=== PATIENT | female | born 1930 | race Caucasian/White ===

== ENCOUNTER 2016-07-06 16:38 | Inpatient (IN) | payer MEDICARE ==
[2016-07-06] MEDS ORDERED: Furosemide 40 MG Tab PO ONE (16:52)
--- NOTE | 2016-07-06 17:01 | PCM.HP ---
H&P History of Present Illness - General Date of Service: 07/06/16 Admit Problem/Dx: Admission Diagnosis/Problem Admission Diagnosis/Problem CHF, Congestive heart failure Source of Information: Patient History Limitations: Reports: No limitations - History of Present Illness Initial Comments - Free Text/Narative: This is an 85yo F who presented to the clinic with sob that has been progressive for weeks if not longer. Patient has had increasing b/l leg edema that has worsened the past week to the point where she has difficulty walking. Patient also has been sleeping in a recliner for an unknown time period. Patient denies any chest pain but does have increasing sob on exertion that has gradually worsened the past year. Patient denies prior history of [place] or Pulmonary concerns, but did state she was told she had mitral valve prolapse as a child. Onset of Symptoms: Reports: gradual Duration of Symptoms: Reports: Week(s):, Chronic Location: Reports: chest, lower extremity, left, lower extremity, right Severity: severe Improves with: Reports: None Worsens with: Reports: Movement Associated Symptoms: Reports: shortness of breath H&P Review of Systems - Review of Systems: Review Of Systems: See Below General: Reports: weight gain HEENT: Reports: no symptoms Pulmonary: Reports: Shortness of Breath Cardiovascular: Reports: dyspnea on exertion, edema Gastrointestinal: Reports: No symptoms Genitourinary: Reports: no symptoms Musculoskeletal: Reports: no symptoms Skin: Reports: no symptoms Psychiatric: Reports: no symptoms Neurological: Reports: No Symptoms Hematologic/Lymphatic: Reports: no symptoms Immunologic: Reports: no symptoms Exam - Exam Exam: See Below - Exam General: alert, oriented, cooperative HEENT: PERRLA, Conjunctiva clear, EACs clear, EOMI Neck: supple, trachea midline Lungs: Decreased breath sounds, Crackles Cardiovascular: regular rate, regular rhythm Abdomen: normal bowel sounds, soft Back Exam: normal inspection, full range of motion, other (SI joint pain) Extremities: edema (4+) Skin: warm, dry, intact Neurological: cranial nerves intact, reflexes equal bilateral Neuro Extensive - Mental Status: alert, oriented x3 Neuro Extensive - Motor, Sensory, Reflexes: CN II-XII intact, normal gait, normal reflexes *Q Meaningful Use (ADM) - VTE *Q VTE Criteria *Q: - Stroke *Q Stroke Criteria *Q: - AMI *Q AMI Criteria *Q: - Problem List (1) CHF (congestive heart failure) SNOMED Code(s): 57772214 ICD Code: I50.9 - HEART FAILURE, UNSPECIFIED Status: Suspected Priority: High Current Visit: Yes Qualifiers: Congestive heart failure type: unspecified congestive heart failure type Congestive heart failure chronicity: acute on chronic Qualified Code(s): I50.9 - Heart failure, unspecified (2) SOB (shortness of breath) on exertion SNOMED Code(s): 21950144 ICD Code: R06.02 - SHORTNESS OF BREATH Status: Acute Priority: High Current Visit: Yes (3) Edema extremities SNOMED Code(s): 405619556 ICD Code: R60.0 - LOCALIZED EDEMA Status: Acute Priority: High Current Visit: Yes Problem List Initiated/Reviewed/Updated: Yes Orders Last 24hrs: Active Orders 24 hr Category Date Time Status Patient Status [ADT] Routine ADT 07/06/16 16:52 Ordered Oxygen Therapy [RC] PRN Care 07/06/16 16:52 Ordered Vital Signs [RC] Q4H Care 07/06/16 16:52 Ordered Heart Healthy Diet [DIET] Diet 07/06/16 Dinner Ordered Chest Abdomen Pelvis wo Cont [CT] Routine Exams 07/07/16 09:00 Ordered Echo Comp wo Cont [US] Urgent Exams 07/06/16 16:51 Ordered B-TYPE NATRIURETIC PEPTIDE,BNP [CHEM] Urgent Lab 07/06/16 16:49 Ordered CBC WITH AUTO DIFF [HEME] Urgent Lab 07/06/16 16:49 Ordered COMPREHENSIVE METABOLIC PN,CMP [CHEM] Urgent Lab 07/06/16 16:49 Ordered TSH ULTRASENSITIVE [CHEM] Urgent Lab 07/06/16 16:49 Ordered Furosemide [Lasix] Med 07/06/16 16:52 Once 40 mg PO ONETIME ONE Assessment/Plan Comment:: Patient to be admitted for likely CHF exacerbation but has been undiagnosed as she has not seen a physician in quite some time. Patient is not on any medications and we will review her medication needs when we obtain labs. ECHO to be ordered and done as soon as possible. We will start diuresis with lasix orally twice daily. Monitor daily weights.
[2016-07-06] MEDS ORDERED: predniSONE 10 MG Tab PO ONE (22:28)
--- NOTE | 2016-07-06 22:31 | PCM.SN ---
- Free Text/Narrative Note: Visited and examined patient. Discussed plan with patient with daughter and patient. Try to have ECHO scheduled tomorrow. Start on prednisone burst for joint pains just for a 5 day trial. Patient has a prior diagnosis of Fibromyalgia but no prior known treatments. Trial of tylenol 650mg x1 for joint pains.
[2016-07-06] MEDS: Acetaminophen 650 MG Tab.ER PO PRN (22:54)
[2016-07-07] MEDS: Acetaminophen 650 MG Tab.ER PO PRN ×4 (05:34→23:10)
[2016-07-07] MEDS: predniSONE 20 MG Tab PO SCH (08:27)
[2016-07-07] MEDS: Calcium Carbonate 500 MG Tab.Chew PO PRN ×2 (08:32→22:15)
[2016-07-07] MEDS ORDERED: Furosemide 40 MG Tab ONE (10:54)
[2016-07-07] MEDS: Furosemide 40 MG Tab PO SCH ×2 (10:55→15:41)
--- NOTE | 2016-07-07 16:51 | PCM.PN ---
- General Info Date of Service: 07/07/16 Subjective Update: Patient has improved sob. Patient states she feels weak but overall has improved. Denies any fever or chills, no chest pain. Patient feels more comfortable in recliner. Daughter stayed over night. Functional Status: Reports: tolerating diet - Review of Systems General: Reports: Weakness HEENT: Reports: no symptoms Pulmonary: Reports: shortness of breath Cardiovascular: Reports: Edema Gastrointestinal: Reports: No symptoms Genitourinary: Reports: no symptoms Musculoskeletal: Reports: joint pain Neurological: Reports: Weakness Psychiatric: Reports: no symptoms - Patient Data Vitals - most recent: Last Vital Signs Temp 36.9 C 07/07/16 14:37 Pulse 81 07/07/16 11:01 Resp 16 07/07/16 14:37 BP 138/60 07/07/16 14:37 Pulse Ox 86 L 07/07/16 14:37 Weight - most recent: 100.698 kg Lab Results last 24 hrs: Laboratory Results - last 24 hr 07/06/16 07/06/16 07/07/16 Range/Units 16:49 16:49 08:45 WBC 11.2 H (4.0-11.0) K/uL RBC 4.92 (3.80-5.80) M/uL Hgb 14.3 (11.5-16.5) g/dL Hct 43.0 (37.0-47.0) % MCV 87 (76-96) fL MCH 29.1 (27.0-32.0) pg MCHC 33.3 (31.0-35.0) g/dL RDW 15.0 (11.0-16.0) % Plt Count 261 (150-500) K/uL MPV 9.7 (6.0-10.0) fL Neut % (Auto) 73.5 H (45.0-70.0) % Lymph % (Auto) 14.0 L (20.0-40.0) % Kerr % (Auto) 10.2 H (3.0-10.0) % Eos % (Auto) 1.8 (1.0-5.0) % Baso % (Auto) 0.5 (0.0-0.5) % Neut # (Auto) 8.19 H (2.00-7.50) K/uL Lymph # (Auto) 1.56 (1.50-4.00) K/uL Kerr # (Auto) 1.14 H (0.20-0.80) K/uL Eos # (Auto) 0.20 (0.04-0.40) K/uL Baso # (Auto) 0.06 (0.02-0.10) K/uL ESR 13 (0-30) mm/hr Sodium 144 (136-145) mmol/L Potassium 4.2 (3.5-5.1) mmol/L Chloride 105 (98-107) mmol/L Carbon Dioxide 29.9 (21.0-32.0) mmol/L Anion Gap 13.3 (5.0-15.0) mmol/L BUN 13 (8-26) mg/dL Creatinine 0.77 (0.55-1.02) mg/dL Est Cr Clr Drug Dosing TNP Estimated GFR (MDRD) > 60 (>60) MLS/MIN BUN/Creatinine Ratio 16.9 (6-25) Glucose 106 H (74-100) mg/dL Uric Acid (2.6-7.2) mg/dL Calcium 9.4 (8.5-10.1) mg/dL Magnesium (1.8-2.4) mg/dL Total Bilirubin 0.6 (0.0-1.0) mg/dL AST 18 (15-37) U/L ALT 20 (12-78) U/L Alkaline Phosphatase 85 (46-116) U/L Creatine Kinase (21-232) U/L C-Reactive Protein (0.0-3.0) mg/L B-Natriuretic Peptide 391 (0-450) pg/mL Total Protein 7.4 (6.4-8.2) g/dL Albumin 3.4 (3.4-5.0) g/dL Globulin 4.0 (2.2-4.2) g/dL Albumin/Globulin Ratio 0.9 (0.8-2.0) TSH, Ultra Sensitive 1.703 (0.358-3.740) uIU/mL 07/07/16 07/07/16 Range/Units 08:45 08:45 WBC (4.0-11.0) K/uL RBC (3.80-5.80) M/uL Hgb (11.5-16.5) g/dL Hct (37.0-47.0) % MCV (76-96) fL MCH (27.0-32.0) pg MCHC (31.0-35.0) g/dL RDW (11.0-16.0) % Plt Count (150-500) K/uL MPV (6.0-10.0) fL Neut % (Auto) (45.0-70.0) % Lymph % (Auto) (20.0-40.0) % Kerr % (Auto) (3.0-10.0) % Eos % (Auto) (1.0-5.0) % Baso % (Auto) (0.0-0.5) % Neut # (Auto) (2.00-7.50) K/uL Lymph # (Auto) (1.50-4.00) K/uL Kerr # (Auto) (0.20-0.80) K/uL Eos # (Auto) (0.04-0.40) K/uL Baso # (Auto) (0.02-0.10) K/uL ESR (0-30) mm/hr Sodium (136-145) mmol/L Potassium (3.5-5.1) mmol/L Chloride (98-107) mmol/L Carbon Dioxide (21.0-32.0) mmol/L Anion Gap (5.0-15.0) mmol/L BUN (8-26) mg/dL Creatinine (0.55-1.02) mg/dL Est Cr Clr Drug Dosing Estimated GFR (MDRD) (>60) MLS/MIN BUN/Creatinine Ratio (6-25) Glucose (74-100) mg/dL Uric Acid 5.5 (2.6-7.2) mg/dL Calcium (8.5-10.1) mg/dL Magnesium 1.7 L (1.8-2.4) mg/dL Total Bilirubin (0.0-1.0) mg/dL AST (15-37) U/L ALT (12-78) U/L Alkaline Phosphatase (46-116) U/L Creatine Kinase 115 (21-232) U/L C-Reactive Protein 10.4 H (0.0-3.0) mg/L B-Natriuretic Peptide (0-450) pg/mL Total Protein (6.4-8.2) g/dL Albumin (3.4-5.0) g/dL Globulin (2.2-4.2) g/dL Albumin/Globulin Ratio (0.8-2.0) TSH, Ultra Sensitive (0.358-3.740) uIU/mL Med Orders - Current: Current Medications Acetaminophen (Tylenol Arthritis Pain) 650 mg PO Q4HR PRN PRN Reason: Pain Last Admin: 07/07/16 15:41 Dose: 650 mg Calcium Carbonate/Glycine (Tums) 500 mg PO Q2HR PRN PRN Reason: Indigestion Last Admin: 07/07/16 08:32 Dose: 500 mg Furosemide (Lasix) 40 mg PO BIDDIURETIC [facility] Last Admin: 07/07/16 15:41 Dose: 40 mg Azithromycin 500 mg/ Sodium (Chloride) 250 mls @ 250 mls/hr IV Q24H [facility] Ceftriaxone Sodium 1 gm/ (Sodium Chloride) 50 mls @ 100 mls/hr IV Q24H [facility] Prednisone (Prednisone) 60 mg PO WITHBREAKFAST [facility] Stop: 07/11/16 07:01 Last Admin: 07/07/16 08:27 Dose: 60 mg Discontinued Medications Furosemide (Lasix) 40 mg PO ONETIME ONE Stop: 07/06/16 16:53 Last Admin: 07/06/16 17:48 Dose: 40 mg Furosemide (Lasix) Confirm Administered Dose 40 mg .ROUTE .STK-MED ONE Stop: 07/07/16 10:55 Last Admin: 07/07/16 10:56 Dose: Not Given Prednisone (Prednisone) 60 mg PO ONETIME ONE Stop: 07/06/16 22:29 Last Admin: 07/06/16 22:54 Dose: 60 mg - Exam General: alert, oriented, cooperative HEENT: Pupils equal, Pupils reactive, EOMI Neck: supple Lungs: Decreased breath sounds, Crackles Cardiovascular: Regular Rate, Regular Rhythm Abdomen: bowel sounds present, soft, no tenderness Back Exam: normal inspection Extremities: edema (3-4+) Skin: warm, dry, intact Neurological: no new focal deficit Psy/Mental Status: alert, normal affect, normal mood - Problem List & Annotations (1) CHF (congestive heart failure) SNOMED Code(s): 20276217 Code(s): I50.9 - HEART FAILURE, UNSPECIFIED Status: Suspected Priority: High Current Visit: Yes Qualifiers: Congestive heart failure type: unspecified congestive heart failure type Congestive heart failure chronicity: acute on chronic Qualified Code(s): I50.9 - Heart failure, unspecified (2) SOB (shortness of breath) on exertion SNOMED Code(s): 61712785 Code(s): R06.02 - SHORTNESS OF BREATH Status: Acute Priority: High Current Visit: Yes (3) Edema extremities SNOMED Code(s): 089613810 Code(s): R60.0 - LOCALIZED EDEMA Status: Acute Priority: High Current Visit: Yes (4) Pneumonia involving right lung SNOMED Code(s): 642259168 Code(s): J18.9 - PNEUMONIA, UNSPECIFIED ORGANISM Status: Acute Current Visit: Yes Qualifiers: Pneumonia type: due to unspecified organism Lung location: lower lobe of lung Qualified Code(s): J18.1 - Lobar pneumonia, unspecified organism - Problem List Review Problem List Initiated/Reviewed/Updated: Yes - My Orders Last 24 Hours: My Active Orders 07/06/16 16:51 Echo Comp wo Cont [US] Urgent 07/06/16 16:52 Patient Status [ADT] Routine Oxygen Therapy [RC] PRN Vital Signs [RC] Q4H 07/06/16 17:05 Weight [Height and Weight] [RC] ASDIRECTED 07/06/16 17:06 Telemetry Monitoring [Cardiac Monitoring] [RC] .As Directed 07/06/16 19:18 Calcium Carbonate [Tums] 500 mg PO Q2HR PRN 07/06/16 22:27 Acetaminophen [Tylenol Arthritis Pain] 650 mg PO Q4HR PRN 07/06/16 Dinner Heart Healthy Diet [DIET] 07/07/16 07:00 predniSONE 60 mg PO WITHBREAKFAST 07/07/16 08:45 DAMIR SCREEN,REFLEXIVE [REF] Routine FOLATE [REF] Routine VITAMIN B12 [REF] Routine VITAMIN D,25 HYDROXY [REF] Routine ZINC [REF] Routine 07/07/16 09:00 Chest Abdomen Pelvis wo Cont [CT] Routine 07/07/16 10:30 CULTURE MRSA SURVEY [RM] Routine 07/07/16 16:00 Furosemide [Lasix] 40 mg PO BIDDIURETIC 07/07/16 16:50 CULTURE BLOOD [BC] Routine CULTURE BLOOD [BC] Routine 07/07/16 17:00 Azithromycin [Zithromax] 500 mg Sodium Chloride 0.9% [Normal Saline] 250 ml IV Q24H cefTRIAXone [Rocephin] 1 gm Sodium Chloride 0.9% [Normal Saline] 50 ml IV Q24H 07/08/16 07:00 ZINC [REF] Routine - Plan Plan:: Patient to be admitted for likely CHF exacerbation but has been undiagnosed as she has not seen a physician in quite some time. Patient is not on any medications and we will review her medication needs when we obtain labs. ECHO to be ordered and done as soon as possible. We will start diuresis with lasix orally twice daily. Monitor daily weights. 07/07/16 Patient continues to have a CHF suspected symptoms but has a normal BNP. The swelling has been a chronic concern and gradual. There is consolidation like appearance of the right lower lobe and will be treated as pneumonia at this time. PT/OT ordered for evaluation and management. Consideration of swing bed for rehabilitation.
[2016-07-07] MEDS ORDERED: cefTRIAXone 1 GM in Sodium Chloride 0.9% 50 ML IV SCH (17:00)
[2016-07-07] MEDS ORDERED: Azithromycin 500 MG in Sodium Chloride 0.9% 250 ML IV SCH (18:00)
[2016-07-08] MEDS: Calcium Carbonate 500 MG Tab.Chew PO PRN (02:03)
[2016-07-08] MEDS ORDERED: Sodium Chloride 0.9% 10 ML Syringe FLUSH PRN (04:52)
[2016-07-08] MEDS: predniSONE 20 MG Tab PO SCH (08:19)
[2016-07-08] MEDS: Furosemide 40 MG Tab PO SCH ×2 (08:20→15:18)
--- NOTE | 2016-07-08 09:39 | CT ---
DATE OF SERVICE: 07/07/16 CLINICAL DATA: SOB, edema. UNENHANCED CHEST CT: Multislice acquisition through the chest without IV contrast was performed. No priors. Motion artifact does degrade image quality. There are atelectatic changes in the dependent portion of both lungs. There is a small area of infiltrating consolidation in the right lung base. Pneumonia should be considered. There is a 6 mm soft tissue density nodule within the left lower lobe. It is nonspecific in appearance. The differential includes benign and malignant processes. The lungs are otherwise clear. No pleural effusions. No pneumothorax. No aortic aneurysm. The heart size is within normal limits. No pericardial effusion. There are calcifications in the region of the mitral and aortic valves. There are coronary artery calcifications. No aortic aneurysm. No hilar or mediastinal adenopathy. No other significant findings. IMPRESSION: 1. Small area of consolidation in the right lower lobe. Pneumonia should be considered. 2. A 6 mm noncalcified nodule left lower lobe. This is nonspecific in appearance. The differential includes benign or malignant processes. 3. Other findings as discussed above. UNENHANCED ABDOMEN AND PELVIC CT: Multislice acquisition through the abdomen and pelvis without IV or oral contrast was performed. No priors. There is a small area of infiltrate and consolidation in the right lung base most likely representing pneumonia. There is a 6 mm nodule in the left lower lobe that was discussed on the chest CT. The unenhanced liver appears normal. No focal hepatic lesions. The gallbladder is contracted. There are a couple of small hyperdense foci within the gallbladder. Gallstones should be considered and gallbladder ultrasound is recommended. The spleen appears normal. The pancreas appears normal. The right and left adrenals appear normal. There is a 4.9 cm sharply transcribed fluid density lesion projecting from the lower pole of the kidney consistent in appearance with a benign renal cyst. The kidneys otherwise appear normal. No nephrocalcinosis or nephrolithiasis. No hydronephrosis or hydroureter. There is a small amount of fluid within the bladder. It appears grossly normal. The appendix is not visualized. No evidence of appendicitis. There is severe colonic diverticulosis. No definite evidence for diverticulitis. There is a small umbilical hernia containing fat. No free air. No free fluid. No dilated loops of bowel. No adenopathy. The aorta is ectatic. It measures 2.8 cm in its maximum diameter. No other significant findings. IMPRESSION: No acute abnormalities. Other findings as discussed above. [id number] [facility]
[2016-07-08] MEDS: cefTRIAXone 1 GM in Sodium Chloride 0.9% 100 ML IV SCH (15:40)
[2016-07-08] MEDS: Azithromycin 500 MG in Sodium Chloride 0.9% 250 ML IV SCH ×2 (16:25→17:40)
--- NOTE | 2016-07-08 18:01 | PCM.PN ---
- General Info Date of Service: 07/08/16 Subjective Update: Patient states she has been feeling better but continues with sob on movement and getting up. Patient denies any fever or chills. Denies any other symptoms. Functional Status: Reports: pain controlled, tolerating diet, ambulating - Review of Systems General: Reports: Weakness HEENT: Reports: no symptoms Pulmonary: Reports: shortness of breath Cardiovascular: Reports: Dyspnea on Exertion Gastrointestinal: Reports: No symptoms Genitourinary: Reports: frequency Musculoskeletal: Reports: joint pain Skin: Reports: no symptoms Neurological: Reports: Weakness Psychiatric: Reports: no symptoms - Patient Data Vitals - most recent: Last Vital Signs Temp 37.2 C 07/08/16 11:00 Pulse 97 07/08/16 11:00 Resp 15 07/08/16 11:00 BP 138/68 07/08/16 11:00 Pulse Ox 95 07/08/16 11:00 Weight - most recent: 100.698 kg I&O - last 24 hours: Intake & Output 07/08/16 07/08/16 07/08/16 06:59 14:59 22:59 Intake Total 1020 Output Total 100 Balance 920 Mikey Results last 24 hrs: Microbiology 07/07/16 17:30 Aerobic Blood Culture - Preliminary Blood NO GROWTH AFTER 1 DAY Anaerobic Blood Culture - Preliminary NO GROWTH AFTER 1 DAY 07/07/16 17:00 Aerobic Blood Culture - Preliminary Blood - Arm, Right NO GROWTH AFTER 1 DAY Anaerobic Blood Culture - Preliminary NO GROWTH AFTER 1 DAY 07/07/16 10:30 MRSA Surveillance Culture - Final Nasal, Unspecified NO MRSA ISOLATED Med Orders - Current: Current Medications Acetaminophen (Tylenol Arthritis Pain) 650 mg PO Q4HR PRN PRN Reason: Pain Last Admin: 07/07/16 23:10 Dose: 650 mg Calcium Carbonate/Glycine (Tums) 500 mg PO Q2HR PRN PRN Reason: Indigestion Last Admin: 07/08/16 02:03 Dose: 500 mg Furosemide (Lasix) 40 mg PO BIDDIURETIC [facility]ANARA Last Admin: 07/08/16 15:18 Dose: 40 mg Ceftriaxone Sodium 1 gm/ (Sodium Chloride) 100 mls @ 200 mls/hr IV Q24H [facility] Last Admin: 07/08/16 15:40 Dose: 200 mls/hr Azithromycin 500 mg/ Sodium (Chloride) 250 mls @ 250 mls/hr IV Q24H [facility] Last Admin: 07/08/16 17:40 Dose: 250 mls/hr Prednisone (Prednisone) 60 mg PO WITHBREAKFAST [facility] Stop: 07/11/16 07:01 Last Admin: 07/08/16 08:19 Dose: 60 mg Sodium Chloride (Saline Flush) 10 ml FLUSH BID PRN PRN Reason: to keep vein open Last Admin: 07/08/16 06:17 Dose: 10 ml Discontinued Medications Furosemide (Lasix) 40 mg PO ONETIME ONE Stop: 07/06/16 16:53 Last Admin: 07/06/16 17:48 Dose: 40 mg Furosemide (Lasix) Confirm Administered Dose 40 mg .ROUTE .STK-MED ONE Stop: 07/07/16 10:55 Last Admin: 07/07/16 10:56 Dose: Not Given Azithromycin 500 mg/ Sodium (Chloride) 250 mls @ 250 mls/hr IV Q24H [facility] Last Admin: 07/07/16 20:24 Dose: 250 mls/hr Ceftriaxone Sodium 1 gm/ (Sodium Chloride) 50 mls @ 100 mls/hr IV Q24H [facility] Last Admin: 07/07/16 17:57 Dose: 100 mls/hr Prednisone (Prednisone) 60 mg PO ONETIME ONE Stop: 07/06/16 22:29 Last Admin: 07/06/16 22:54 Dose: 60 mg - Exam Quality Assessment: supplemental oxygen General: alert, oriented, cooperative HEENT: Pupils equal, Pupils reactive Neck: supple Lungs: Normal respiratory effort, Crackles Cardiovascular: Regular Rate, Regular Rhythm Abdomen: bowel sounds present, soft, no tenderness Back Exam: normal inspection Extremities: edema (3-4+) Peripheral Pulses: 1+: dorsalis pedis (L), dorsalis pedis (R) Skin: warm, dry, intact Neurological: no new focal deficit Psy/Mental Status: alert, normal affect, normal mood - Problem List & Annotations (1) CHF (congestive heart failure) SNOMED Code(s): 85398577 Code(s): I50.9 - HEART FAILURE, UNSPECIFIED Status: Suspected Priority: High Current Visit: Yes Qualifiers: Congestive heart failure type: unspecified congestive heart failure type Congestive heart failure chronicity: acute on chronic Qualified Code(s): I50.9 - Heart failure, unspecified (2) SOB (shortness of breath) on exertion SNOMED Code(s): 99886731 Code(s): R06.02 - SHORTNESS OF BREATH Status: Acute Priority: High Current Visit: Yes (3) Edema extremities SNOMED Code(s): 960422078 Code(s): R60.0 - LOCALIZED EDEMA Status: Acute Priority: High Current Visit: Yes (4) Pneumonia involving right lung SNOMED Code(s): 890653036 Code(s): J18.9 - PNEUMONIA, UNSPECIFIED ORGANISM Status: Acute Priority: High Current Visit: Yes Qualifiers: Pneumonia type: due to unspecified organism Lung location: lower lobe of lung Qualified Code(s): J18.1 - Lobar pneumonia, unspecified organism - Problem List Review Problem List Initiated/Reviewed/Updated: Yes - My Orders Last 24 Hours: My Active Orders 07/07/16 17:30 CULTURE BLOOD [BC] Routine 07/08/16 04:52 Sodium Chloride 0.9% [Saline Flush] 10 ml FLUSH BID PRN 07/08/16 07:05 ZINC [REF] Routine 07/08/16 10:25 cefTRIAXone [Rocephin] 1 gm Sodium Chloride 0.9% [Normal Saline] 100 ml IV Q24H 07/08/16 11:00 Azithromycin [Zithromax] 500 mg Sodium Chloride 0.9% [Normal Saline] 250 ml IV Q24H - Plan Plan:: Patient to be admitted for likely CHF exacerbation but has been undiagnosed as she has not seen a physician in quite some time. Patient is not on any medications and we will review her medication needs when we obtain labs. ECHO to be ordered and done as soon as possible. We will start diuresis with lasix orally twice daily. Monitor daily weights. 07/07/16 Patient continues to have a CHF suspected symptoms but has a normal BNP. The swelling has been a chronic concern and gradual. There is consolidation like appearance of the right lower lobe and will be treated as pneumonia at this time. PT/OT ordered for evaluation and management. Consideration of swing bed for rehabilitation. 07/08/16 Patient to continue with diuresis pending Echocardiogram for next week. Symptoms appear to be improving. We will continue to monitor fluid status.
[2016-07-09] MEDS: predniSONE 20 MG Tab PO SCH (08:13)
[2016-07-09] MEDS: Furosemide 40 MG Tab PO SCH (08:13)
--- NOTE | 2016-07-09 09:01 | PCM.PN ---
- General Info Date of Service: 07/09/16 Subjective Update: Patient has felt improvement the past few days. Functional Status: Reports: pain controlled - Review of Systems General: Reports: Weakness, Fatigue HEENT: Reports: no symptoms Pulmonary: Reports: shortness of breath Cardiovascular: Reports: No Symptoms Gastrointestinal: Reports: No symptoms Genitourinary: Reports: frequency Musculoskeletal: Reports: joint pain Skin: Reports: no symptoms Neurological: Reports: Weakness Psychiatric: Reports: anxiety - Patient Data Vitals - most recent: Last Vital Signs Temp 37.2 C 07/08/16 11:00 Pulse 93 07/08/16 19:00 Resp 18 07/09/16 06:47 BP 148/67 H 07/08/16 19:00 Pulse Ox 95 07/08/16 19:00 Weight - most recent: 100.698 kg I&O - last 24 hours: Intake & Output 07/08/16 07/09/16 07/09/16 22:59 06:59 14:59 Intake Total 300 Output Total 600 Balance -300 Lab Results last 24 hrs: Laboratory Results - last 24 hr 07/07/16 07/07/16 Range/Units 08:45 08:45 Vitamin B12 604 (211-946) pg/mL Vitamin D 25-Hydroxy 43 (>29) ng/mL Folate 11.9 (4.8-24.2) ng/mL DAMIR Screen Negative (NEG) Mikey Results last 24 hrs: Microbiology 07/07/16 17:30 Aerobic Blood Culture - Preliminary Blood NO GROWTH AFTER 1 DAY Anaerobic Blood Culture - Preliminary NO GROWTH AFTER 1 DAY 07/07/16 17:00 Aerobic Blood Culture - Preliminary Blood - Arm, Right NO GROWTH AFTER 1 DAY Anaerobic Blood Culture - Preliminary NO GROWTH AFTER 1 DAY 07/07/16 10:30 MRSA Surveillance Culture - Final Nasal, Unspecified NO MRSA ISOLATED Med Orders - Current: Current Medications Acetaminophen (Tylenol Arthritis Pain) 650 mg PO Q4HR PRN PRN Reason: Pain Last Admin: 07/07/16 23:10 Dose: 650 mg Calcium Carbonate/Glycine (Tums) 500 mg PO Q2HR PRN PRN Reason: Indigestion Last Admin: 07/08/16 02:03 Dose: 500 mg Furosemide (Lasix) 40 mg PO BIDDIURETIC [facility] Last Admin: 07/09/16 08:13 Dose: 40 mg Ceftriaxone Sodium 1 gm/ (Sodium Chloride) 100 mls @ 200 mls/hr IV Q24H [facility] Last Admin: 07/08/16 15:40 Dose: 200 mls/hr Azithromycin 500 mg/ Sodium (Chloride) 250 mls @ 250 mls/hr IV Q24H [facility] Last Admin: 07/08/16 17:40 Dose: 250 mls/hr Prednisone (Prednisone) 60 mg PO WITHBREAKFAST [facility] Stop: 07/11/16 07:01 Last Admin: 07/09/16 08:13 Dose: 60 mg Sodium Chloride (Saline Flush) 10 ml FLUSH BID PRN PRN Reason: to keep vein open Last Admin: 07/08/16 06:17 Dose: 10 ml Discontinued Medications Furosemide (Lasix) 40 mg PO ONETIME ONE Stop: 07/06/16 16:53 Last Admin: 07/06/16 17:48 Dose: 40 mg Furosemide (Lasix) Confirm Administered Dose 40 mg .ROUTE .STK-MED ONE Stop: 07/07/16 10:55 Last Admin: 07/07/16 10:56 Dose: Not Given Azithromycin 500 mg/ Sodium (Chloride) 250 mls @ 250 mls/hr IV Q24H [facility] Last Admin: 07/07/16 20:24 Dose: 250 mls/hr Ceftriaxone Sodium 1 gm/ (Sodium Chloride) 50 mls @ 100 mls/hr IV Q24H [facility] Last Admin: 07/07/16 17:57 Dose: 100 mls/hr Prednisone (Prednisone) 60 mg PO ONETIME ONE Stop: 07/06/16 22:29 Last Admin: 07/06/16 22:54 Dose: 60 mg - Exam Quality Assessment: supplemental oxygen General: alert, oriented, cooperative HEENT: Pupils equal, Pupils reactive Neck: supple Lungs: Decreased breath sounds, Rhonchi Cardiovascular: Regular Rate, Regular Rhythm Abdomen: bowel sounds present, soft Back Exam: normal inspection Extremities: edema (2+) Peripheral Pulses: 1+: dorsalis pedis (L), dorsalis pedis (R) Skin: warm, dry, intact Neurological: no new focal deficit - Problem List & Annotations (1) CHF (congestive heart failure) SNOMED Code(s): 04302377 Code(s): I50.9 - HEART FAILURE, UNSPECIFIED Status: Chronic Priority: High Qualifiers: Congestive heart failure type: diastolic Congestive heart failure chronicity: acute on chronic Qualified Code(s): I50.33 - Acute on chronic diastolic (congestive) heart failure (2) SOB (shortness of breath) on exertion SNOMED Code(s): 04704153 Code(s): R06.02 - SHORTNESS OF BREATH Status: Chronic Priority: High (3) Edema extremities SNOMED Code(s): 513367186 Code(s): R60.0 - LOCALIZED EDEMA Status: Chronic Priority: High (4) Pneumonia involving right lung SNOMED Code(s): 135908448 Code(s): J18.9 - PNEUMONIA, UNSPECIFIED ORGANISM Status: Resolved Priority: High Qualifiers: Pneumonia type: due to unspecified organism Lung location: lower lobe of lung Qualified Code(s): J18.1 - Lobar pneumonia, unspecified organism - Problem List Review Problem List Initiated/Reviewed/Updated: Yes - My Orders Last 24 Hours: My Active Orders 07/08/16 10:25 cefTRIAXone [Rocephin] 1 gm Sodium Chloride 0.9% [Normal Saline] 100 ml IV Q24H 07/08/16 11:00 Azithromycin [Zithromax] 500 mg Sodium Chloride 0.9% [Normal Saline] 250 ml IV Q24H 07/09/16 05:39 CBC WITH AUTO DIFF [HEME] Routine COMPREHENSIVE METABOLIC PN,CMP [CHEM] Routine 07/09/16 05:40 GLYCOSYLATED HEMOGLOBIN,HGBA1C [CHEM] Routine - Plan Plan:: Patient to be admitted for likely CHF exacerbation but has been undiagnosed as she has not seen a physician in quite some time. Patient is not on any medications and we will review her medication needs when we obtain labs. ECHO to be ordered and done as soon as possible. We will start diuresis with lasix orally twice daily. Monitor daily weights. 07/07/16 Patient continues to have a CHF suspected symptoms but has a normal BNP. The swelling has been a chronic concern and gradual. There is consolidation like appearance of the right lower lobe and will be treated as pneumonia at this time. PT/OT ordered for evaluation and management. Consideration of swing bed for rehabilitation. 07/09/16 Patient continues to have an elevated WBC. She has also had low grade temps in the night. We will continue with antibiotics and repeat labs in AM. Continue supportive therapy. Discussed close monitoring of vitals and symptoms. Patient agrees with plan of care.
[2016-07-09] MEDS: Calcium Carbonate 500 MG Tab.Chew PO PRN (09:51)
[2016-07-09] MEDS: cefTRIAXone 1 GM in Sodium Chloride 0.9% 100 ML IV SCH (10:04)
[2016-07-09] MEDS: Azithromycin 500 MG in Sodium Chloride 0.9% 250 ML IV SCH (11:01)
--- NOTE | 2016-07-10 05:57 | PCM.PN ---
- General Info Date of Service: 07/10/16 Subjective Update: This is an 85yo F who has been improving gradually. Patient continues to have sob on exertion but has been stable. Patient denies any concerns today. Functional Status: Reports: tolerating diet - Review of Systems General: Reports: Weakness, Fatigue HEENT: Reports: no symptoms Pulmonary: Reports: shortness of breath Cardiovascular: Reports: No Symptoms Gastrointestinal: Reports: No symptoms Genitourinary: Reports: frequency Musculoskeletal: Reports: joint pain Skin: Reports: no symptoms Neurological: Reports: Weakness - Patient Data Vitals - most recent: Last Vital Signs Temp 36.9 C 07/10/16 05:26 Pulse 73 07/10/16 05:26 Resp 16 07/10/16 05:26 BP 150/68 H 07/10/16 05:26 Pulse Ox 91 L 07/10/16 05:26 Weight - most recent: 98.792 kg I&O - last 24 hours: Intake & Output 07/09/16 07/09/16 07/10/16 14:59 22:59 06:59 Intake Total 680 Output Total 740 Balance -60 Lab Results last 24 hrs: Laboratory Results - last 24 hr 07/09/16 07/09/16 07/09/16 Range/Units 09:00 09:00 09:00 WBC 13.3 H (4.0-11.0) K/uL RBC 5.02 (3.80-5.80) M/uL Hgb 14.7 (11.5-16.5) g/dL Hct 44.4 (37.0-47.0) % MCV 88 (76-96) fL MCH 29.3 (27.0-32.0) pg MCHC 33.1 (31.0-35.0) g/dL RDW 15.3 (11.0-16.0) % Plt Count 311 (150-500) K/uL MPV 10.0 (6.0-10.0) fL Neut % (Auto) 66.1 (45.0-70.0) % Lymph % (Auto) 22.7 (20.0-40.0) % [place] % (Auto) 9.3 (3.0-10.0) % Eos % (Auto) 1.4 (1.0-5.0) % Baso % (Auto) 0.5 (0.0-0.5) % Neut # (Auto) 8.79 H (2.00-7.50) K/uL Lymph # (Auto) 3.01 (1.50-4.00) K/uL [place] # (Auto) 1.23 H (0.20-0.80) K/uL Eos # (Auto) 0.19 (0.04-0.40) K/uL Baso # (Auto) 0.06 (0.02-0.10) K/uL Sodium 143 (136-145) mmol/L Potassium 3.6 (3.5-5.1) mmol/L Chloride 103 (98-107) mmol/L Carbon Dioxide 34.6 H (21.0-32.0) mmol/L Anion Gap 9.0 (5.0-15.0) mmol/L BUN 26 D (8-26) mg/dL Creatinine 0.86 (0.55-1.02) mg/dL Est Cr Clr Drug Dosing 37.83 mL/min Estimated GFR (MDRD) > 60 (>60) MLS/MIN BUN/Creatinine Ratio 30.2 H (6-25) Glucose 100 (74-100) mg/dL Hemoglobin A1c 5.8 (4.5-6.2) % Calcium 9.0 (8.5-10.1) mg/dL Total Bilirubin 0.5 (0.0-1.0) mg/dL AST 18 (15-37) U/L ALT 23 (12-78) U/L Alkaline Phosphatase 79 (46-116) U/L Total Protein 6.7 (6.4-8.2) g/dL Albumin 3.2 L (3.4-5.0) g/dL Globulin 3.5 (2.2-4.2) g/dL Albumin/Globulin Ratio 0.9 (0.8-2.0) Mikey Results last 24 hrs: Microbiology 07/07/16 17:30 Aerobic Blood Culture - Preliminary Blood NO GROWTH AFTER 2 DAYS Anaerobic Blood Culture - Preliminary NO GROWTH AFTER 2 DAYS 07/07/16 17:00 Aerobic Blood Culture - Preliminary Blood - Arm, Right NO GROWTH AFTER 2 DAYS Anaerobic Blood Culture - Preliminary NO GROWTH AFTER 2 DAYS Med Orders - Current: Current Medications Acetaminophen (Tylenol Arthritis Pain) 650 mg PO Q4HR PRN PRN Reason: Pain Last Admin: 07/07/16 23:10 Dose: 650 mg Calcium Carbonate/Glycine (Tums) 500 mg PO Q2HR PRN PRN Reason: Indigestion Last Admin: 07/09/16 09:51 Dose: 500 mg Furosemide (Lasix) 40 mg PO BIDDIURETIC [facility] Last Admin: 07/09/16 08:13 Dose: 40 mg Ceftriaxone Sodium 1 gm/ (Sodium Chloride) 100 mls @ 200 mls/hr IV Q24H [facility] Last Admin: 07/09/16 10:04 Dose: 200 mls/hr Azithromycin 500 mg/ Sodium (Chloride) 250 mls @ 250 mls/hr IV Q24H [facility] Last Admin: 07/09/16 11:01 Dose: 250 mls/hr Prednisone (Prednisone) 60 mg PO WITHBREAKFAST [facility] Stop: 07/11/16 07:01 Last Admin: 07/09/16 08:13 Dose: 60 mg Sodium Chloride (Saline Flush) 10 ml FLUSH BID PRN PRN Reason: to keep vein open Last Admin: 07/08/16 06:17 Dose: 10 ml Discontinued Medications Furosemide (Lasix) 40 mg PO ONETIME ONE Stop: 07/06/16 16:53 Last Admin: 07/06/16 17:48 Dose: 40 mg Furosemide (Lasix) Confirm Administered Dose 40 mg .ROUTE .STK-MED ONE Stop: 07/07/16 10:55 Last Admin: 07/07/16 10:56 Dose: Not Given Azithromycin 500 mg/ Sodium (Chloride) 250 mls @ 250 mls/hr IV Q24H [facility] Last Admin: 07/07/16 20:24 Dose: 250 mls/hr Ceftriaxone Sodium 1 gm/ (Sodium Chloride) 50 mls @ 100 mls/hr IV Q24H [facility] Last Admin: 07/07/16 17:57 Dose: 100 mls/hr Prednisone (Prednisone) 60 mg PO ONETIME ONE Stop: 07/06/16 22:29 Last Admin: 07/06/16 22:54 Dose: 60 mg - Exam Quality Assessment: supplemental oxygen General: alert, oriented, cooperative HEENT: Pupils equal, Pupils reactive Neck: supple Lungs: Decreased breath sounds, Rhonchi Cardiovascular: Regular Rate, Regular Rhythm Abdomen: bowel sounds present, no tenderness Back Exam: normal inspection Extremities: edema (2+) Peripheral Pulses: 1+: dorsalis pedis (L), dorsalis pedis (R) Skin: warm, dry, intact Neurological: no new focal deficit - Problem List & Annotations (1) CHF (congestive heart failure) SNOMED Code(s): 59643172 Code(s): I50.9 - HEART FAILURE, UNSPECIFIED Status: Chronic Priority: High Qualifiers: Congestive heart failure type: diastolic Congestive heart failure chronicity: acute on chronic Qualified Code(s): I50.33 - Acute on chronic diastolic (congestive) heart failure (2) SOB (shortness of breath) on exertion SNOMED Code(s): 29258189 Code(s): R06.02 - SHORTNESS OF BREATH Status: Chronic Priority: High (3) Edema extremities SNOMED Code(s): 038082619 Code(s): R60.0 - LOCALIZED EDEMA Status: Chronic Priority: High (4) Pneumonia involving right lung SNOMED Code(s): 228687859 Code(s): J18.9 - PNEUMONIA, UNSPECIFIED ORGANISM Status: Resolved Priority: High Qualifiers: Pneumonia type: due to unspecified organism Lung location: lower lobe of lung Qualified Code(s): J18.1 - Lobar pneumonia, unspecified organism - Problem List Review Problem List Initiated/Reviewed/Updated: Yes - Plan Plan:: Patient to be admitted for likely CHF exacerbation but has been undiagnosed as she has not seen a physician in quite some time. Patient is not on any medications and we will review her medication needs when we obtain labs. ECHO to be ordered and done as soon as possible. We will start diuresis with lasix orally twice daily. Monitor daily weights. 07/07/16 Patient continues to have a CHF suspected symptoms but has a normal BNP. The swelling has been a chronic concern and gradual. There is consolidation like appearance of the right lower lobe and will be treated as pneumonia at this time. PT/OT ordered for evaluation and management. Consideration of swing bed for rehabilitation. 07/10/16 Patient continues to have desaturation of oxygen on activity and dyspneic on exertion. Oxygen use continued and close monitoring of oxygenation with activity counseled in presence of nursing staff. We will be continuing antibiotics at this time and repeat labs in AM.
[2016-07-10] MEDS: Furosemide 40 MG Tab PO SCH ×3 (07:21→14:26)
[2016-07-10] MEDS ORDERED: Azithromycin 500 MG Tab PO ONE (07:36)
[2016-07-10] MEDS: predniSONE 20 MG Tab PO SCH (08:18)
[2016-07-10] MEDS ORDERED: Levofloxacin 750 MG Tab PO SCH (10:00)
[2016-07-10] MEDS: Lactobacillus Acidophilus/Lactobacillus Sporogenes (Probiotic) Tab PO ONE (11:58)
[2016-07-10] MEDS: Nystatin Crm 30 GM Tube TOP SCH ×2 (14:18→20:00)
[2016-07-11] MEDS: Nystatin Crm 30 GM Tube TOP SCH ×3 (08:00→19:57)
[2016-07-11] MEDS: predniSONE 20 MG Tab PO SCH (08:00)
[2016-07-11] MEDS: Furosemide 40 MG Tab PO SCH ×2 (08:00→15:03)
--- NOTE | 2016-07-11 09:32 | PCM.PN ---
- General Info Date of Service: 07/11/16 Subjective Update: Patient states she experience some chills through the night. Denies fever. Patient does feel somewhat weak. Patient has a ongoing complaint of sob on exertion. - Review of Systems General: Reports: Weakness HEENT: Reports: no symptoms Pulmonary: Reports: shortness of breath Cardiovascular: Reports: Dyspnea on Exertion Gastrointestinal: Reports: No symptoms Genitourinary: Reports: no symptoms Musculoskeletal: Reports: no symptoms Skin: Reports: no symptoms Neurological: Reports: Weakness Psychiatric: Reports: no symptoms - Patient Data Vitals - most recent: Last Vital Signs Temp 36.4 C 07/11/16 08:00 Pulse 81 07/11/16 08:00 Resp 18 07/11/16 08:00 BP 120/43 L 07/11/16 08:00 Pulse Ox 94 L 07/11/16 08:00 Weight - most recent: 98.792 kg I&O - last 24 hours: Intake & Output 07/10/16 07/11/16 07/11/16 22:59 06:59 14:59 Intake Total 200 500 Output Total 1000 400 Balance -800 100 Mikey Results last 24 hrs: Microbiology 07/07/16 17:30 Aerobic Blood Culture - Preliminary Blood NO GROWTH AFTER 3 DAYS Anaerobic Blood Culture - Preliminary NO GROWTH AFTER 3 DAYS 07/07/16 17:00 Aerobic Blood Culture - Preliminary Blood - Arm, Right NO GROWTH AFTER 3 DAYS Anaerobic Blood Culture - Preliminary NO GROWTH AFTER 3 DAYS Med Orders - Current: Current Medications Acetaminophen (Tylenol Arthritis Pain) 650 mg PO Q4HR PRN PRN Reason: Pain Last Admin: 07/07/16 23:10 Dose: 650 mg Calcium Carbonate/Glycine (Tums) 500 mg PO Q2HR PRN PRN Reason: Indigestion Last Admin: 07/09/16 09:51 Dose: 500 mg Furosemide (Lasix) 40 mg PO BID@0800,1400 [facility] Last Admin: 07/11/16 08:00 Dose: 40 mg Lactobacillus Acidophilus (Acidolphilus Extra Strength) 1 tab PO DAILY ONE Stop: 07/11/16 11:16 Last Admin: 07/10/16 11:58 Dose: 1 tab Levofloxacin (Levaquin) 750 mg PO Q48H [facility] Nystatin (Nystatin Crm) 0 gm TOP TID [facility] Last Admin: 07/11/16 08:00 Dose: 1 applic Pregabalin (Lyrica) 50 mg PO TID [facility] Discontinued Medications Azithromycin (Zithromax) 500 mg PO ONETIME ONE Stop: 07/10/16 07:37 Last Admin: 07/10/16 08:21 Dose: 500 mg Furosemide (Lasix) 40 mg PO ONETIME ONE Stop: 07/06/16 16:53 Last Admin: 07/06/16 17:48 Dose: 40 mg Furosemide (Lasix) 40 mg PO BIDDIURETIC [facility] Last Admin: 07/10/16 14:26 Dose: 40 mg Furosemide (Lasix) Confirm Administered Dose 40 mg .ROUTE .STK-MED ONE Stop: 07/07/16 10:55 Last Admin: 07/07/16 10:56 Dose: Not Given Azithromycin 500 mg/ Sodium (Chloride) 250 mls @ 250 mls/hr IV Q24H [facility] Last Admin: 07/07/16 20:24 Dose: 250 mls/hr Ceftriaxone Sodium 1 gm/ (Sodium Chloride) 50 mls @ 100 mls/hr IV Q24H [facility] Last Admin: 07/07/16 17:57 Dose: 100 mls/hr Ceftriaxone Sodium 1 gm/ (Sodium Chloride) 100 mls @ 200 mls/hr IV Q24H [facility] Last Admin: 07/09/16 10:04 Dose: 200 mls/hr Azithromycin 500 mg/ Sodium (Chloride) 250 mls @ 250 mls/hr IV Q24H [facility] Last Admin: 07/09/16 11:01 Dose: 250 mls/hr Levofloxacin (Levaquin) 750 mg PO Q24H [facility] Last Admin: 07/10/16 10:16 Dose: 750 mg Prednisone (Prednisone) 60 mg PO WITHBREAKFAST [facility] Stop: 07/11/16 07:01 Last Admin: 07/11/16 08:00 Dose: 60 mg Prednisone (Prednisone) 60 mg PO ONETIME ONE Stop: 07/06/16 22:29 Last Admin: 07/06/16 22:54 Dose: 60 mg Sodium Chloride (Saline Flush) 10 ml FLUSH BID PRN PRN Reason: to keep vein open Last Admin: 07/08/16 06:17 Dose: 10 ml - Exam General: alert, oriented, cooperative HEENT: Pupils equal, Pupils reactive Neck: supple Lungs: Clear to auscultation, Normal respiratory effort Cardiovascular: Regular Rate, Regular Rhythm Abdomen: bowel sounds present, soft, no tenderness Back Exam: normal inspection Extremities: edema (2-3+) Skin: warm, dry, intact - Problem List & Annotations (1) CHF (congestive heart failure) SNOMED Code(s): 85496922 Code(s): I50.9 - HEART FAILURE, UNSPECIFIED Status: Suspected Priority: High Current Visit: Yes Qualifiers: Congestive heart failure type: unspecified congestive heart failure type Congestive heart failure chronicity: acute on chronic Qualified Code(s): I50.9 - Heart failure, unspecified (2) SOB (shortness of breath) on exertion SNOMED Code(s): 63185237 Code(s): R06.02 - SHORTNESS OF BREATH Status: Acute Priority: High Current Visit: Yes (3) Edema extremities SNOMED Code(s): 850419878 Code(s): R60.0 - LOCALIZED EDEMA Status: Acute Priority: High Current Visit: Yes (4) Pneumonia involving right lung SNOMED Code(s): 273990523 Code(s): J18.9 - PNEUMONIA, UNSPECIFIED ORGANISM Status: Acute Current Visit: Yes Qualifiers: Pneumonia type: due to unspecified organism Lung location: lower lobe of lung Qualified Code(s): J18.1 - Lobar pneumonia, unspecified organism - Problem List Review Problem List Initiated/Reviewed/Updated: Yes - My Orders Last 24 Hours: My Active Orders 07/10/16 14:00 Nystatin [Nystatin Crm] 0 gm TOP TID 07/11/16 08:00 Furosemide [Lasix] 40 mg PO BID@0800,1400 07/11/16 09:30 CBC WITH AUTO DIFF [HEME] Routine COMPREHENSIVE METABOLIC PN,CMP [CHEM] Routine 07/11/16 11:15 Acidophilus/Lactobac Spor [Acidolphilus Extra Strength] 1 tab PO DAILY ONE 07/11/16 14:00 Pregabalin [Lyrica] 50 mg PO TID 07/12/16 08:00 Levofloxacin [Levaquin] 750 mg PO Q48H - Plan Plan:: Patient to be admitted for likely CHF exacerbation but has been undiagnosed as she has not seen a physician in quite some time. Patient is not on any medications and we will review her medication needs when we obtain labs. ECHO to be ordered and done as soon as possible. We will start diuresis with lasix orally twice daily. Monitor daily weights. 07/07/16 Patient continues to have a CHF suspected symptoms but has a normal BNP. The swelling has been a chronic concern and gradual. There is consolidation like appearance of the right lower lobe and will be treated as pneumonia at this time. PT/OT ordered for evaluation and management. Consideration of swing bed for rehabilitation. 07/11/16 Patient pending ECHO in wed. We have continued oral antibiotics due to loss of IV line and will repeat WBC for evaluation of recent symptoms. We may require IV antibiotics if WBC has not resolved. Consider PT/OT rehabilitation for weakness and planning for swing bed.
[2016-07-11] MEDS ORDERED: Sodium Chloride 0.9% 10 ML Syringe FLUSH PRN (10:56)
--- NOTE | 2016-07-11 11:00 | PCM.DCSUM1 ---
Discharge Summary - Discharge Data Discharge Date: 07/11/16 Discharge Disposition: DC/Tfer W/I H[facility] Condition: Good - Discharge Diagnosis/Problem(s) (1) CHF (congestive heart failure) SNOMED Code(s): 73572269 ICD Code: I50.9 - HEART FAILURE, UNSPECIFIED Status: Suspected Priority: High Current Visit: Yes Qualifiers: Congestive heart failure type: unspecified congestive heart failure type Congestive heart failure chronicity: acute on chronic Qualified Code(s): I50.9 - Heart failure, unspecified (2) SOB (shortness of breath) on exertion SNOMED Code(s): 34097115 ICD Code: R06.02 - SHORTNESS OF BREATH Status: Acute Priority: High Current Visit: Yes (3) Edema extremities SNOMED Code(s): 614722868 ICD Code: R60.0 - LOCALIZED EDEMA Status: Acute Priority: High Current Visit: Yes (4) Pneumonia involving right lung SNOMED Code(s): 664924546 ICD Code: J18.9 - PNEUMONIA, UNSPECIFIED ORGANISM Status: Acute Current Visit: Yes Qualifiers: Pneumonia type: due to unspecified organism Lung location: lower lobe of lung Qualified Code(s): J18.1 - Lobar pneumonia, unspecified organism - Patient Summary/Data Consults: Consultations 07/07/16 16:51 OT Evaluation and Treatment [CONS] Routine Please Evaluate and Treat. OT Reason for Consult: ADL's This query below is only for informational purposes and is not editable. Admission Diagnosis/Problem: CHF, Congestive heart failure PT Evaluation and Treatment [CONS] Routine Please Evaluate and Treat. PT Reason for Consult: Ambulation This query below is only for informational purposes and is not editable. Admission Diagnosis/Problem: CHF, Congestive heart failure - Discharge Plan - Patient Data Vitals - Most Recent: Last Vital Signs Temp 36.4 C 07/11/16 08:00 Pulse 81 07/11/16 08:00 Resp 18 07/11/16 08:00 BP 120/43 L 07/11/16 08:00 Pulse Ox 94 L 07/11/16 08:00 Weight - Most Recent: 98.792 kg I&O - Last 24 hours: Intake & Output 07/10/16 07/11/16 07/11/16 22:59 06:59 14:59 Intake Total 200 500 Output Total 1000 400 Balance -800 100 Lab Results - Last 24 hrs: Laboratory Results - last 24 hr 07/11/16 07/11/16 Range/Units 09:30 09:30 WBC 17.2 H D (4.0-11.0) K/uL RBC 4.86 (3.80-5.80) M/uL Hgb 14.3 (11.5-16.5) g/dL Hct 42.7 (37.0-47.0) % MCV 88 (76-96) fL MCH 29.4 (27.0-32.0) pg MCHC 33.5 (31.0-35.0) g/dL RDW 15.1 (11.0-16.0) % Plt Count 324 (150-500) K/uL MPV 9.4 (6.0-10.0) fL Neut % (Auto) 73.9 H (45.0-70.0) % Lymph % (Auto) 14.3 L (20.0-40.0) % [place] % (Auto) 10.6 H (3.0-10.0) % Eos % (Auto) 1.0 (1.0-5.0) % Baso % (Auto) 0.2 (0.0-0.5) % Neut # (Auto) 12.74 H (2.00-7.50) K/uL Lymph # (Auto) 2.46 (1.50-4.00) K/uL [place] # (Auto) 1.82 H (0.20-0.80) K/uL Eos # (Auto) 0.18 (0.04-0.40) K/uL Baso # (Auto) 0.04 (0.02-0.10) K/uL Sodium 141 (136-145) mmol/L Potassium 3.4 L (3.5-5.1) mmol/L Chloride 101 (98-107) mmol/L Carbon Dioxide 32.5 H (21.0-32.0) mmol/L Anion Gap 10.9 (5.0-15.0) mmol/L BUN 21 (8-26) mg/dL Creatinine 0.97 (0.55-1.02) mg/dL Est Cr Clr Drug Dosing 33.54 mL/min Estimated GFR (MDRD) 55 L (>60) MLS/MIN BUN/Creatinine Ratio 21.6 (6-25) Glucose 120 H (74-100) mg/dL Calcium 8.8 (8.5-10.1) mg/dL Total Bilirubin 0.6 (0.0-1.0) mg/dL AST 21 (15-37) U/L ALT 42 (12-78) U/L Alkaline Phosphatase 83 (46-116) U/L Total Protein 6.5 (6.4-8.2) g/dL Albumin 3.1 L (3.4-5.0) g/dL Globulin 3.4 (2.2-4.2) g/dL Albumin/Globulin Ratio 0.9 (0.8-2.0) MARKELL Results - Last 24 hrs: Microbiology 07/07/16 17:30 Aerobic Blood Culture - Preliminary Blood NO GROWTH AFTER 3 DAYS Anaerobic Blood Culture - Preliminary NO GROWTH AFTER 3 DAYS 07/07/16 17:00 Aerobic Blood Culture - Preliminary Blood - Arm, Right NO GROWTH AFTER 3 DAYS Anaerobic Blood Culture - Preliminary NO GROWTH AFTER 3 DAYS Med Orders - Current: Current Medications Acetaminophen (Tylenol Arthritis Pain) 650 mg PO Q4HR PRN PRN Reason: Pain Last Admin: 07/07/16 23:10 Dose: 650 mg Calcium Carbonate/Glycine (Tums) 500 mg PO Q2HR PRN PRN Reason: Indigestion Last Admin: 07/09/16 09:51 Dose: 500 mg Furosemide (Lasix) 40 mg PO BID@0800,1400 [facility] Last Admin: 07/11/16 08:00 Dose: 40 mg Lactobacillus Acidophilus (Acidolphilus Extra Strength) 1 tab PO DAILY ONE Stop: 07/11/16 11:16 Last Admin: 07/10/16 11:58 Dose: 1 tab Levofloxacin (Levaquin) 750 mg PO Q48H [facility] Nystatin (Nystatin Crm) 0 gm TOP TID [facility] Last Admin: 07/11/16 08:00 Dose: 1 applic Pregabalin (Lyrica) 50 mg PO TID [facility] Sodium Chloride (Saline Flush) 10 ml FLUSH ASDIRECTED PRN PRN Reason: Keep Vein Open Discontinued Medications Azithromycin (Zithromax) 500 mg PO ONETIME ONE Stop: 07/10/16 07:37 Last Admin: 07/10/16 08:21 Dose: 500 mg Furosemide (Lasix) 40 mg PO ONETIME ONE Stop: 07/06/16 16:53 Last Admin: 07/06/16 17:48 Dose: 40 mg Furosemide (Lasix) 40 mg PO BIDDIURETIC [facility] Last Admin: 07/10/16 14:26 Dose: 40 mg Furosemide (Lasix) Confirm Administered Dose 40 mg .ROUTE .STK-MED ONE Stop: 07/07/16 10:55 Last Admin: 07/07/16 10:56 Dose: Not Given Azithromycin 500 mg/ Sodium (Chloride) 250 mls @ 250 mls/hr IV Q24H [facility] Last Admin: 07/07/16 20:24 Dose: 250 mls/hr Ceftriaxone Sodium 1 gm/ (Sodium Chloride) 50 mls @ 100 mls/hr IV Q24H [facility] Last Admin: 07/07/16 17:57 Dose: 100 mls/hr Ceftriaxone Sodium 1 gm/ (Sodium Chloride) 100 mls @ 200 mls/hr IV Q24H [facility] Last Admin: 07/09/16 10:04 Dose: 200 mls/hr Azithromycin 500 mg/ Sodium (Chloride) 250 mls @ 250 mls/hr IV Q24H [facility] Last Admin: 07/09/16 11:01 Dose: 250 mls/hr Levofloxacin (Levaquin) 750 mg PO Q24H [facility] Last Admin: 07/10/16 10:16 Dose: 750 mg Prednisone (Prednisone) 60 mg PO WITHBREAKFAST [facility] Stop: 07/11/16 07:01 Last Admin: 07/11/16 08:00 Dose: 60 mg Prednisone (Prednisone) 60 mg PO ONETIME ONE Stop: 07/06/16 22:29 Last Admin: 07/06/16 22:54 Dose: 60 mg Sodium Chloride (Saline Flush) 10 ml FLUSH BID PRN PRN Reason: to keep vein open Last Admin: 07/08/16 06:17 Dose: 10 ml *Q Meaningful Use (DIS) - VTE *Q VTE Criteria *Q: - Stroke *Q Stroke Criteria *Q: - AMI *Q AMI Criteria *Q:
[2016-07-11] MEDS: Lactobacillus Acidophilus/Lactobacillus Sporogenes (Probiotic) Tab PO ONE (12:36)
[2016-07-11] MEDS: Piperacillin/Tazobactam 4.5 GM in Sodium Chloride 0.9% 100 ML IV SCH ×3 (12:36→23:30)
[2016-07-11] MEDS: Pregabalin 50 MG Cap PO SCH ×2 (15:02→19:56)
[2016-07-12] MEDS: Piperacillin/Tazobactam 4.5 GM in Sodium Chloride 0.9% 100 ML IV SCH ×3 (05:20→22:50)
[2016-07-12] MEDS: Furosemide 40 MG Tab PO SCH ×2 (07:57→14:22)
[2016-07-12] MEDS: Pregabalin 50 MG Cap PO SCH ×3 (07:59→19:40)
[2016-07-12] MEDS ORDERED: Levofloxacin 750 MG Tab PO SCH (08:00)
--- NOTE | 2016-07-12 09:48 | PCM.PN ---
- General Info Date of Service: 07/12/16 Subjective Update: Patient states she is feeling about the same. She has some concerns of a sore throat and feeling weak. Functional Status: Reports: pain controlled, tolerating diet, ambulating - Review of Systems General: Reports: Weakness HEENT: Reports: no symptoms Pulmonary: Reports: no symptoms Cardiovascular: Reports: No Symptoms Gastrointestinal: Reports: Decreased appetite Genitourinary: Reports: frequency Musculoskeletal: Reports: joint pain Skin: Reports: no symptoms Neurological: Reports: No Symptoms - Patient Data Vitals - most recent: Last Vital Signs Temp 36.8 C 07/12/16 05:15 Pulse 66 07/12/16 05:15 Resp 16 07/12/16 05:15 BP 147/54 H 07/12/16 05:15 Pulse Ox 96 07/12/16 05:15 Weight - most recent: 98.792 kg I&O - last 24 hours: Intake & Output 07/11/16 07/12/16 07/12/16 22:59 06:59 14:59 Intake Total 680 Output Total 1100 Balance -420 Lab Results last 24 hrs: Laboratory Results - last 24 hr 07/08/16 07/11/16 07/11/16 Range/Units 07:05 09:30 09:30 WBC 17.2 H D (4.0-11.0) K/uL RBC 4.86 (3.80-5.80) M/uL Hgb 14.3 (11.5-16.5) g/dL Hct 42.7 (37.0-47.0) % MCV 88 (76-96) fL MCH 29.4 (27.0-32.0) pg MCHC 33.5 (31.0-35.0) g/dL RDW 15.1 (11.0-16.0) % Plt Count 324 (150-500) K/uL MPV 9.4 (6.0-10.0) fL Neut % (Auto) 73.9 H (45.0-70.0) % Lymph % (Auto) 14.3 L (20.0-40.0) % [place] % (Auto) 10.6 H (3.0-10.0) % Eos % (Auto) 1.0 (1.0-5.0) % Baso % (Auto) 0.2 (0.0-0.5) % Neut # (Auto) 12.74 H (2.00-7.50) K/uL Lymph # (Auto) 2.46 (1.50-4.00) K/uL [place] # (Auto) 1.82 H (0.20-0.80) K/uL Eos # (Auto) 0.18 (0.04-0.40) K/uL Baso # (Auto) 0.04 (0.02-0.10) K/uL Sodium 141 (136-145) mmol/L Potassium 3.4 L (3.5-5.1) mmol/L Chloride 101 (98-107) mmol/L Carbon Dioxide 32.5 H (21.0-32.0) mmol/L Anion Gap 10.9 (5.0-15.0) mmol/L BUN 21 (8-26) mg/dL Creatinine 0.97 (0.55-1.02) mg/dL Est Cr Clr Drug Dosing 33.54 mL/min Estimated GFR (MDRD) 55 L (>60) MLS/MIN BUN/Creatinine Ratio 21.6 (6-25) Glucose 120 H (74-100) mg/dL Calcium 8.8 (8.5-10.1) mg/dL Total Bilirubin 0.6 (0.0-1.0) mg/dL AST 21 (15-37) U/L ALT 42 (12-78) U/L Alkaline Phosphatase 83 (46-116) U/L Total Protein 6.5 (6.4-8.2) g/dL Albumin 3.1 L (3.4-5.0) g/dL Globulin 3.4 (2.2-4.2) g/dL Albumin/Globulin Ratio 0.9 (0.8-2.0) Zinc 68 (60-120) ug/dL 07/12/16 07/12/16 Range/Units 07:10 07:10 WBC 14.3 H (4.0-11.0) K/uL RBC 4.87 (3.80-5.80) M/uL Hgb 14.2 (11.5-16.5) g/dL Hct 43.0 (37.0-47.0) % MCV 88 (76-96) fL MCH 29.2 (27.0-32.0) pg MCHC 33.0 (31.0-35.0) g/dL RDW 15.1 (11.0-16.0) % Plt Count 332 (150-500) K/uL MPV 9.5 (6.0-10.0) fL Neut % (Auto) 66.0 (45.0-70.0) % Lymph % (Auto) 20.4 (20.0-40.0) % [place] % (Auto) 12.0 H (3.0-10.0) % Eos % (Auto) 1.4 (1.0-5.0) % Baso % (Auto) 0.2 (0.0-0.5) % Neut # (Auto) 9.43 H (2.00-7.50) K/uL Lymph # (Auto) 2.92 (1.50-4.00) K/uL [place] # (Auto) 1.72 H (0.20-0.80) K/uL Eos # (Auto) 0.20 (0.04-0.40) K/uL Baso # (Auto) 0.03 (0.02-0.10) K/uL Sodium 143 (136-145) mmol/L Potassium 3.8 (3.5-5.1) mmol/L Chloride 102 (98-107) mmol/L Carbon Dioxide 34.8 H (21.0-32.0) mmol/L Anion Gap 10.0 (5.0-15.0) mmol/L BUN 22 (8-26) mg/dL Creatinine 1.19 H D (0.55-1.02) mg/dL Est Cr Clr Drug Dosing 27.34 mL/min Estimated GFR (MDRD) 43 L (>60) MLS/MIN BUN/Creatinine Ratio 18.5 (6-25) Glucose 87 (74-100) mg/dL Calcium 8.5 (8.5-10.1) mg/dL Total Bilirubin (0.0-1.0) mg/dL AST (15-37) U/L ALT (12-78) U/L Alkaline Phosphatase (46-116) U/L Total Protein (6.4-8.2) g/dL Albumin (3.4-5.0) g/dL Globulin (2.2-4.2) g/dL Albumin/Globulin Ratio (0.8-2.0) Zinc (60-120) ug/dL Mikey Results last 24 hrs: Microbiology 07/11/16 12:11 Urine Culture - Preliminary Urine, Bladder NO GROWTH AFTER 1 DAY 07/07/16 17:30 Aerobic Blood Culture - Preliminary Blood NO GROWTH AFTER 4 DAYS Anaerobic Blood Culture - Preliminary NO GROWTH AFTER 4 DAYS 07/07/16 17:00 Aerobic Blood Culture - Preliminary Blood - Arm, Right NO GROWTH AFTER 4 DAYS Anaerobic Blood Culture - Preliminary NO GROWTH AFTER 4 DAYS Med Orders - Current: Current Medications Acetaminophen (Tylenol Arthritis Pain) 650 mg PO Q4HR PRN PRN Reason: Pain Last Admin: 07/07/16 23:10 Dose: 650 mg Calcium Carbonate/Glycine (Tums) 500 mg PO Q2HR PRN PRN Reason: Indigestion Last Admin: 07/09/16 09:51 Dose: 500 mg Furosemide (Lasix) 40 mg PO BID@0800,1400 [facility] Last Admin: 07/12/16 07:57 Dose: 40 mg Piperacillin Sod/Tazobactam (Sod 4.5 gm/ Sodium Chloride) 100 mls @ 200 mls/hr IV Q8H [facility] Nystatin (Nystatin Crm) 0 gm TOP TID [facility] Last Admin: 07/11/16 19:57 Dose: 1 applic Pregabalin (Lyrica) 50 mg PO TID [facility] Last Admin: 07/12/16 07:59 Dose: 50 mg Sodium Chloride (Saline Flush) 10 ml FLUSH ASDIRECTED PRN PRN Reason: Keep Vein Open Discontinued Medications Azithromycin (Zithromax) 500 mg PO ONETIME ONE Stop: 07/10/16 07:37 Last Admin: 07/10/16 08:21 Dose: 500 mg Furosemide (Lasix) 40 mg PO ONETIME ONE Stop: 07/06/16 16:53 Last Admin: 07/06/16 17:48 Dose: 40 mg Furosemide (Lasix) 40 mg PO BIDDIURETIC [facility] Last Admin: 07/10/16 14:26 Dose: 40 mg Furosemide (Lasix) Confirm Administered Dose 40 mg .ROUTE .STK-MED ONE Stop: 07/07/16 10:55 Last Admin: 07/07/16 10:56 Dose: Not Given Azithromycin 500 mg/ Sodium (Chloride) 250 mls @ 250 mls/hr IV Q24H [facility] Last Admin: 07/07/16 20:24 Dose: 250 mls/hr Ceftriaxone Sodium 1 gm/ (Sodium Chloride) 50 mls @ 100 mls/hr IV Q24H [facility] Last Admin: 07/07/16 17:57 Dose: 100 mls/hr Ceftriaxone Sodium 1 gm/ (Sodium Chloride) 100 mls @ 200 mls/hr IV Q24H [facility] Last Admin: 07/09/16 10:04 Dose: 200 mls/hr Azithromycin 500 mg/ Sodium (Chloride) 250 mls @ 250 mls/hr IV Q24H [facility] Last Admin: 07/09/16 11:01 Dose: 250 mls/hr Piperacillin Sod/Tazobactam (Sod 4.5 gm/ Sodium Chloride) 100 mls @ 200 mls/hr IV Q6H [facility] Last Admin: 07/12/16 05:20 Dose: 200 mls/hr Lactobacillus Acidophilus (Acidolphilus Extra Strength) 1 tab PO DAILY ONE Stop: 07/11/16 11:16 Last Admin: 07/11/16 12:36 Dose: 1 tab Levofloxacin (Levaquin) 750 mg PO Q24H [facility] Last Admin: 07/10/16 10:16 Dose: 750 mg Levofloxacin (Levaquin) 750 mg PO Q48H [facility] Last Admin: 07/12/16 07:58 Dose: 750 mg Prednisone (Prednisone) 60 mg PO WITHBREAKFAST [facility] Stop: 07/11/16 07:01 Last Admin: 07/11/16 08:00 Dose: 60 mg Prednisone (Prednisone) 60 mg PO ONETIME ONE Stop: 07/06/16 22:29 Last Admin: 07/06/16 22:54 Dose: 60 mg Sodium Chloride (Saline Flush) 10 ml FLUSH BID PRN PRN Reason: to keep vein open Last Admin: 07/08/16 06:17 Dose: 10 ml - Exam Quality Assessment: supplemental oxygen General: alert, oriented, cooperative HEENT: Pupils equal, Pupils reactive Neck: supple Lungs: Clear to auscultation, Normal respiratory effort Cardiovascular: Regular Rate, Regular Rhythm Abdomen: bowel sounds present, soft, no tenderness Extremities: edema (2-3+) Skin: warm, dry, intact Neurological: no new focal deficit - Problem List & Annotations (1) CHF (congestive heart failure) SNOMED Code(s): 17490778 Code(s): I50.9 - HEART FAILURE, UNSPECIFIED Status: Suspected Priority: High Current Visit: Yes Qualifiers: Congestive heart failure type: unspecified congestive heart failure type Congestive heart failure chronicity: acute on chronic Qualified Code(s): I50.9 - Heart failure, unspecified (2) SOB (shortness of breath) on exertion SNOMED Code(s): 20902197 Code(s): R06.02 - SHORTNESS OF BREATH Status: Acute Priority: High Current Visit: Yes (3) Edema extremities SNOMED Code(s): 950885236 Code(s): R60.0 - LOCALIZED EDEMA Status: Acute Priority: High Current Visit: Yes (4) Pneumonia involving right lung SNOMED Code(s): 861502219 Code(s): J18.9 - PNEUMONIA, UNSPECIFIED ORGANISM Status: Acute Priority: High Current Visit: Yes Qualifiers: Pneumonia type: due to unspecified organism Lung location: lower lobe of lung Qualified Code(s): J18.1 - Lobar pneumonia, unspecified organism - Problem List Review Problem List Initiated/Reviewed/Updated: Yes - My Orders Last 24 Hours: My Active Orders 07/11/16 10:56 Sodium Chloride 0.9% [Saline Flush] 10 ml FLUSH ASDIRECTED PRN Peripheral IV Insertion Adult [OM.PC] Routine 07/11/16 12:11 CULTURE URINE [RM] Routine 07/11/16 14:00 Pregabalin [Lyrica] 50 mg PO TID 07/11/16 Dinner Heart Healthy Diet [DIET] 07/12/16 10:00 Piperacillin/Tazobactam [Zosyn] 4.5 gm Sodium Chloride 0.9% [Normal Saline] 100 ml IV Q8H 07/13/16 05:11 CBC WITH AUTO DIFF [HEME] AM COMPREHENSIVE METABOLIC PN,CMP [CHEM] AM - Plan Plan:: Patient to be admitted for likely CHF exacerbation but has been undiagnosed as she has not seen a physician in quite some time. Patient is not on any medications and we will review her medication needs when we obtain labs. ECHO to be ordered and done as soon as possible. We will start diuresis with lasix orally twice daily. Monitor daily weights. 07/07/16 Patient continues to have a CHF suspected symptoms but has a normal BNP. The swelling has been a chronic concern and gradual. There is consolidation like appearance of the right lower lobe and will be treated as pneumonia at this time. PT/OT ordered for evaluation and management. Consideration of swing bed for rehabilitation. 07/11/16 Patient pending ECHO in wed. We have continued oral antibiotics due to loss of IV line and will repeat WBC for evaluation of recent symptoms. We may require IV antibiotics if WBC has not resolved. Consider PT/OT rehabilitation for weakness and planning for swing bed. 07/13/16 Patient pending ECHO this AM. Patient to be continued on IV antibiotics at 3.375g Q8 due to renal function changes. Decreased lasix to Daily due to elevation of Creatinine. Continue PT/OT evaluation as needed. F/u labs in AM for WBC changes.
[2016-07-12] MEDS: Nystatin Crm 30 GM Tube TOP SCH ×3 (09:58→19:42)
[2016-07-13] MEDS: Piperacillin/Tazobactam 4.5 GM in Sodium Chloride 0.9% 100 ML IV SCH (06:10)
[2016-07-13] MEDS: Acetaminophen 650 MG Tab.ER PO PRN ×3 (06:20→12:48)
[2016-07-13] MEDS: Furosemide 40 MG Tab PO SCH (08:04)
[2016-07-13] MEDS: Pregabalin 50 MG Cap PO SCH ×3 (08:22→20:48)
[2016-07-13] MEDS: Calcium Carbonate 500 MG Tab.Chew PO PRN ×2 (09:09→20:09)
[2016-07-13] MEDS: Lactobacillus Acidophilus/Lactobacillus Sporogenes (Probiotic) Tab PO SCH (10:19)
[2016-07-13] MEDS: Nystatin Susp 100,000 Unit/ML 5 ML UD Cup PO SCH ×4 (10:20→20:09)
--- NOTE | 2016-07-13 12:05 | PCM.PN ---
- General Info Date of Service: 07/13/16 Subjective Update: Patient states she feels very weak today and tired. Patient denies any fever or chills and denies any chest pain or sob. She feels that she doesn't have any energy. Functional Status: Reports: pain controlled, tolerating diet, ambulating, urinating - Review of Systems General: Reports: Weakness HEENT: Reports: no symptoms Pulmonary: Reports: no symptoms Cardiovascular: Reports: No Symptoms Gastrointestinal: Reports: Other (loose stools but formed) Genitourinary: Reports: frequency Musculoskeletal: Reports: joint pain Skin: Reports: no symptoms Neurological: Reports: No Symptoms Psychiatric: Reports: no symptoms - Patient Data Vitals - most recent: Last Vital Signs Temp 36.9 C 07/13/16 08:00 Pulse 94 07/13/16 08:00 Resp 18 07/13/16 08:00 BP 129/57 L 07/13/16 08:00 Pulse Ox 94 L 07/13/16 08:00 Weight - most recent: 98.792 kg I&O - last 24 hours: Intake & Output 07/12/16 07/13/16 07/13/16 22:59 06:59 14:59 Intake Total 600 Output Total 750 Balance -150 Lab Results last 24 hrs: Laboratory Results - last 24 hr 07/13/16 07/13/16 Range/Units 07:15 07:15 WBC 15.0 H (4.0-11.0) K/uL RBC 4.80 (3.80-5.80) M/uL Hgb 14.0 (11.5-16.5) g/dL Hct 42.7 (37.0-47.0) % MCV 89 (76-96) fL MCH 29.2 (27.0-32.0) pg MCHC 32.8 (31.0-35.0) g/dL RDW 15.2 (11.0-16.0) % Plt Count 305 (150-500) K/uL MPV 9.4 (6.0-10.0) fL Neut % (Auto) 73.8 H (45.0-70.0) % Lymph % (Auto) 13.4 L (20.0-40.0) % Love % (Auto) 9.4 (3.0-10.0) % Eos % (Auto) 3.0 (1.0-5.0) % Baso % (Auto) 0.4 (0.0-0.5) % Neut # (Auto) 11.03 H (2.00-7.50) K/uL Lymph # (Auto) 2.01 (1.50-4.00) K/uL Love # (Auto) 1.41 H (0.20-0.80) K/uL Eos # (Auto) 0.45 H (0.04-0.40) K/uL Baso # (Auto) 0.06 (0.02-0.10) K/uL Sodium 140 (136-145) mmol/L Potassium 3.4 L (3.5-5.1) mmol/L Chloride 99 (98-107) mmol/L Carbon Dioxide 32.6 H (21.0-32.0) mmol/L Anion Gap 11.8 (5.0-15.0) mmol/L BUN 25 (8-26) mg/dL Creatinine 1.32 H (0.55-1.02) mg/dL Est Cr Clr Drug Dosing 24.64 mL/min Estimated GFR (MDRD) 38 L (>60) MLS/MIN BUN/Creatinine Ratio 18.9 (6-25) Glucose 126 H D (74-100) mg/dL Calcium 8.5 (8.5-10.1) mg/dL Total Bilirubin 0.9 D (0.0-1.0) mg/dL AST 22 (15-37) U/L ALT 53 (12-78) U/L Alkaline Phosphatase 79 (46-116) U/L Total Protein 6.3 L (6.4-8.2) g/dL Albumin 2.9 L (3.4-5.0) g/dL Globulin 3.4 (2.2-4.2) g/dL Albumin/Globulin Ratio 0.9 (0.8-2.0) Mikey Results last 24 hrs: Microbiology 07/11/16 12:11 Urine Culture - Final Urine, Bladder No Growth 07/07/16 17:30 Aerobic Blood Culture - Final Blood NO GROWTH AFTER 5 DAYS Anaerobic Blood Culture - Final NO GROWTH AFTER 5 DAYS 07/07/16 17:00 Aerobic Blood Culture - Final Blood - Arm, Right NO GROWTH AFTER 5 DAYS Anaerobic Blood Culture - Final NO GROWTH AFTER 5 DAYS Med Orders - Current: Current Medications Acetaminophen (Tylenol Arthritis Pain) 650 mg PO Q4HR PRN PRN Reason: Pain Last Admin: 07/13/16 10:18 Dose: 650 mg Calcium Carbonate/Glycine (Tums) 500 mg PO Q2HR PRN PRN Reason: Indigestion Last Admin: 07/13/16 09:09 Dose: 500 mg Furosemide (Lasix) 40 mg PO QAM [facility] Piperacillin Sod/Tazobactam (Sod 3.375 gm/ Sodium Chloride) 100 mls @ 200 mls/ hr IV Q8H [facility] Lactobacillus Acidophilus (Acidolphilus Extra Strength) 1 tab PO DAILY [facility] Last Admin: 07/13/16 10:19 Dose: 1 tab Nystatin (Nystatin Crm) 0 gm TOP TID [facility] Last Admin: 07/12/16 19:42 Dose: 1 applic Nystatin (Mycostatin) 5 ml PO QID [facility] Last Admin: 07/13/16 10:20 Dose: 5 ml Potassium Chloride (Klor-Con M20) 20 meq PO DAILY [facility] Stop: 07/19/16 11:31 Pregabalin (Lyrica) 50 mg PO TID [facility] Last Admin: 07/13/16 08:22 Dose: Not Given Sodium Chloride (Saline Flush) 10 ml FLUSH ASDIRECTED PRN PRN Reason: Keep Vein Open Discontinued Medications Azithromycin (Zithromax) 500 mg PO ONETIME ONE Stop: 07/10/16 07:37 Last Admin: 07/10/16 08:21 Dose: 500 mg Furosemide (Lasix) 40 mg PO ONETIME ONE Stop: 07/06/16 16:53 Last Admin: 07/06/16 17:48 Dose: 40 mg Furosemide (Lasix) 40 mg PO BIDDIURETIC [facility] Last Admin: 07/10/16 14:26 Dose: 40 mg Furosemide (Lasix) Confirm Administered Dose 40 mg .ROUTE .STK-MED ONE Stop: 07/07/16 10:55 Last Admin: 07/07/16 10:56 Dose: Not Given Furosemide (Lasix) 40 mg PO BID@0800,1400 [facility] Last Admin: 07/13/16 08:04 Dose: 40 mg Azithromycin 500 mg/ Sodium (Chloride) 250 mls @ 250 mls/hr IV Q24H [facility] Last Admin: 07/07/16 20:24 Dose: 250 mls/hr Ceftriaxone Sodium 1 gm/ (Sodium Chloride) 50 mls @ 100 mls/hr IV Q24H [facility] Last Admin: 07/07/16 17:57 Dose: 100 mls/hr Ceftriaxone Sodium 1 gm/ (Sodium Chloride) 100 mls @ 200 mls/hr IV Q24H [facility] Last Admin: 07/09/16 10:04 Dose: 200 mls/hr Azithromycin 500 mg/ Sodium (Chloride) 250 mls @ 250 mls/hr IV Q24H [facility] Last Admin: 07/09/16 11:01 Dose: 250 mls/hr Piperacillin Sod/Tazobactam (Sod 4.5 gm/ Sodium Chloride) 100 mls @ 200 mls/hr IV Q6H [facility] Last Admin: 07/12/16 05:20 Dose: 200 mls/hr Piperacillin Sod/Tazobactam (Sod 4.5 gm/ Sodium Chloride) 100 mls @ 200 mls/hr IV Q8H [facility] Last Admin: 07/13/16 06:10 Dose: 200 mls/hr Lactobacillus Acidophilus (Acidolphilus Extra Strength) 1 tab PO DAILY ONE Stop: 07/11/16 11:16 Last Admin: 07/11/16 12:36 Dose: 1 tab Levofloxacin (Levaquin) 750 mg PO Q24H [facility] Last Admin: 07/10/16 10:16 Dose: 750 mg Levofloxacin (Levaquin) 750 mg PO Q48H [facility] Last Admin: 07/12/16 07:58 Dose: 750 mg Prednisone (Prednisone) 60 mg PO WITHBREAKFAST DAYANARA Stop: 07/11/16 07:01 Last Admin: 07/11/16 08:00 Dose: 60 mg Prednisone (Prednisone) 60 mg PO ONETIME ONE Stop: 07/06/16 22:29 Last Admin: 07/06/16 22:54 Dose: 60 mg Sodium Chloride (Saline Flush) 10 ml FLUSH BID PRN PRN Reason: to keep vein open Last Admin: 07/08/16 06:17 Dose: 10 ml - Exam Quality Assessment: supplemental oxygen General: alert, oriented, cooperative HEENT: Pupils equal, Pupils reactive, EOMI Neck: supple Lungs: Clear to auscultation, Normal respiratory effort Cardiovascular: Regular Rate, Regular Rhythm Abdomen: bowel sounds present, soft, no tenderness Back Exam: normal inspection Extremities: edema (2-3+) Peripheral Pulses: 2+: dorsalis pedis (L), dorsalis pedis (R) Skin: warm, dry, intact Neurological: no new focal deficit - Problem List & Annotations (1) CHF (congestive heart failure) SNOMED Code(s): 81274027 Code(s): I50.9 - HEART FAILURE, UNSPECIFIED Status: Suspected Priority: High Current Visit: Yes Qualifiers: Congestive heart failure type: unspecified congestive heart failure type Congestive heart failure chronicity: acute on chronic Qualified Code(s): I50.9 - Heart failure, unspecified (2) SOB (shortness of breath) on exertion SNOMED Code(s): 72524171 Code(s): R06.02 - SHORTNESS OF BREATH Status: Acute Priority: High Current Visit: Yes (3) Edema extremities SNOMED Code(s): 353211793 Code(s): R60.0 - LOCALIZED EDEMA Status: Acute Priority: High Current Visit: Yes (4) Pneumonia involving right lung SNOMED Code(s): 187212816 Code(s): J18.9 - PNEUMONIA, UNSPECIFIED ORGANISM Status: Acute Priority: High Current Visit: Yes Qualifiers: Pneumonia type: due to unspecified organism Lung location: lower lobe of lung Qualified Code(s): J18.1 - Lobar pneumonia, unspecified organism - Problem List Review Problem List Initiated/Reviewed/Updated: Yes - My Orders Last 24 Hours: My Active Orders 07/13/16 Echo Comp wo Cont [US] Routine 07/13/16 09:30 Acidophilus/Lactobac Spor [Acidolphilus Extra Strength] 1 tab PO DAILY 07/13/16 11:30 Potassium Chloride [Klor-Con M20] 20 meq PO DAILY 07/13/16 12:00 Nystatin [Mycostatin] 5 ml PO QID 07/13/16 14:00 Piperacillin/Tazobactam [Zosyn] 3.375 gm Sodium Chloride 0.9% [Normal Saline] 100 ml IV Q8H 07/14/16 08:00 Furosemide [Lasix] 40 mg PO QAM - Plan Plan:: Patient to be admitted for likely CHF exacerbation but has been undiagnosed as she has not seen a physician in quite some time. Patient is not on any medications and we will review her medication needs when we obtain labs. ECHO to be ordered and done as soon as possible. We will start diuresis with lasix orally twice daily. Monitor daily weights. 07/07/16 Patient continues to have a CHF suspected symptoms but has a normal BNP. The swelling has been a chronic concern and gradual. There is consolidation like appearance of the right lower lobe and will be treated as pneumonia at this time. PT/OT ordered for evaluation and management. Consideration of swing bed for rehabilitation. 07/11/16 Patient pending ECHO in mon. We have continued oral antibiotics due to loss of IV line and will repeat WBC for evaluation of recent symptoms. We may require IV antibiotics if WBC has not resolved. Consider PT/OT rehabilitation for weakness and planning for swing bed. 07/13/16 Patient changed to Zosyn 4.5g Q8 from Q6. Continue to monitor BUN/Cr due to lasix use. WBC continues to be elevated. 07/14/16 Patient pending ECHO this AM. Patient to be continued on IV antibiotics at 3.375g Q8 due to renal function changes. Decreased lasix to Daily due to elevation of Creatinine. Continue PT/OT evaluation as needed. F/u labs in AM for WBC changes.
[2016-07-13] MEDS: Potassium Chloride 20 MEQ Tab.ER PO SCH (12:29)
[2016-07-13] MEDS ORDERED: Piperacillin/Tazobactam 3.375 GM in Sodium Chloride 0.9% 100 ML IV SCH (14:00)
[2016-07-13] MEDS: Piperacillin/Tazobactam 3.375 GM in Sodium Chloride 0.9% 100 ML IV SCH ×2 (14:45→22:02)
[2016-07-13] MEDS: Nystatin Crm 30 GM Tube TOP SCH ×3 (16:33→20:56)
[2016-07-14] MEDS: Acetaminophen 650 MG Tab.ER PO PRN ×2 (00:26→18:25)
[2016-07-14] MEDS: Calcium Carbonate 500 MG Tab.Chew PO PRN ×3 (00:50→19:50)
[2016-07-14] MEDS: Piperacillin/Tazobactam 3.375 GM in Sodium Chloride 0.9% 100 ML IV SCH (06:44)
[2016-07-14] MEDS: Furosemide 40 MG Tab PO SCH (08:40)
[2016-07-14] MEDS: Lactobacillus Acidophilus/Lactobacillus Sporogenes (Probiotic) Tab PO SCH (08:40)
[2016-07-14] MEDS: Pregabalin 50 MG Cap PO SCH ×3 (08:40→19:38)
[2016-07-14] MEDS: Potassium Chloride 20 MEQ Tab.ER PO SCH (08:40)
[2016-07-14] MEDS: Nystatin Crm 30 GM Tube TOP SCH ×3 (08:40→19:42)
[2016-07-14] MEDS: Nystatin Susp 100,000 Unit/ML 5 ML UD Cup PO SCH ×4 (08:40→19:47)
[2016-07-14] MEDS: Isosorbide Mononitrate 30 MG Tab.ER PO SCH (11:07)
--- NOTE | 2016-07-14 12:02 | PCM.PN ---
- General Info Date of Service: 07/14/16 Subjective Update: Pt claims that she feels better. HAd a low grade temp of 99F. No shortness of breath. tolerating diet. Able to ambulate to bath room and back. She has gained 2 lbs over 24 hrs. She has been drinking lot of fluids. Her legs have been edematous and swollen. Her creat was 1.34 yesterday. no cough, fever. Functional Status: Reports: pain controlled, tolerating diet, ambulating, urinating - Review of Systems General: Reports: Weakness, Fatigue. Denies: Fever, Appetite HEENT: Denies: glasses, headaches, sinus congestion, sore throat Pulmonary: Reports: shortness of breath. Denies: cough, sputum, wheezing Cardiovascular: Reports: Edema. Denies: Chest Pain, Palpitations, Lightheadedness Gastrointestinal: Denies: Nausea, Vomiting Genitourinary: Denies: dysuria, frequency Musculoskeletal: Denies: foot pain, joint pain, joint swelling Skin: Denies: cyanosis, jaundice, pruritis, rash Neurological: Denies: Confusion, Dizziness - Patient Data Vitals - most recent: Last Vital Signs Temp 97.4 F 07/14/16 08:00 Pulse 74 07/14/16 08:00 Resp 12 07/14/16 08:00 BP 125/60 07/14/16 11:07 Pulse Ox 96 07/14/16 08:00 Weight - most recent: 100.698 kg I&O - last 24 hours: Intake & Output 07/13/16 07/14/16 07/14/16 22:59 06:59 14:59 Intake Total 920 660 Output Total 900 800 Balance 20 -140 Lab Results last 24 hrs: Laboratory Results - last 24 hr 07/14/16 07/14/16 Range/Units 08:47 08:48 WBC 14.3 H (4.0-11.0) K/uL RBC 4.77 (3.80-5.80) M/uL Hgb 13.8 (11.5-16.5) g/dL Hct 42.2 (37.0-47.0) % MCV 89 (76-96) fL MCH 28.9 (27.0-32.0) pg MCHC 32.7 (31.0-35.0) g/dL RDW 15.2 (11.0-16.0) % Plt Count 296 (150-500) K/uL MPV 9.4 (6.0-10.0) fL Neut % (Auto) 74.5 H (45.0-70.0) % Lymph % (Auto) 12.6 L (20.0-40.0) % [place] % (Auto) 8.3 (3.0-10.0) % Eos % (Auto) 4.4 (1.0-5.0) % Baso % (Auto) 0.2 (0.0-0.5) % Neut # (Auto) 10.63 H (2.00-7.50) K/uL Lymph # (Auto) 1.80 (1.50-4.00) K/uL [place] # (Auto) 1.18 H (0.20-0.80) K/uL Eos # (Auto) 0.63 H (0.04-0.40) K/uL Baso # (Auto) 0.03 (0.02-0.10) K/uL Sodium 143 (136-145) mmol/L Potassium 3.7 (3.5-5.1) mmol/L Chloride 102 (98-107) mmol/L Carbon Dioxide 35.5 H (21.0-32.0) mmol/L Anion Gap 9.2 (5.0-15.0) mmol/L BUN 24 (8-26) mg/dL Creatinine 1.03 H D (0.55-1.02) mg/dL Est Cr Clr Drug Dosing 31.58 mL/min Estimated GFR (MDRD) 51 L (>60) MLS/MIN BUN/Creatinine Ratio 23.3 (6-25) Glucose 129 H (74-100) mg/dL Calcium 9.1 (8.5-10.1) mg/dL Mikey Results last 24 hrs: Microbiology 07/13/16 13:30 Clostridium difficile (PCR) - Final Stool / Feces 07/11/16 12:11 Urine Culture - Final Urine, Bladder No Growth Med Orders - Current: Current Medications Acetaminophen (Tylenol Arthritis Pain) 650 mg PO Q4HR PRN PRN Reason: Pain Last Admin: 07/14/16 00:26 Dose: 650 mg Calcium Carbonate/Glycine (Tums) 500 mg PO Q2HR PRN PRN Reason: Indigestion Last Admin: 07/14/16 00:50 Dose: 500 mg Furosemide (Lasix) 40 mg PO QAM [facility] Last Admin: 07/14/16 08:40 Dose: 40 mg Furosemide (Lasix) 20 mg PO DAILY@1600 [facility] Piperacillin Sod/Tazobactam (Sod 3.375 gm/ Sodium Chloride) 100 mls @ 200 mls/ hr IV Q8H [facility] Last Admin: 07/14/16 06:44 Dose: 200 mls/hr Isosorbide Mononitrate (Imdur) 30 mg PO DAILY [facility] Last Admin: 07/14/16 11:07 Dose: 30 mg Lactobacillus Acidophilus (Acidolphilus Extra Strength) 1 tab PO DAILY [facility] Last Admin: 07/14/16 08:40 Dose: 1 tab Metolazone (Zaroxolyn) 5 mg PO ONETIME ONE Stop: 07/14/16 15:31 Metolazone (Zaroxolyn) 5 mg PO DAILY@0730 [facility] Nystatin (Nystatin Crm) 0 gm TOP TID [facility] Last Admin: 07/14/16 08:40 Dose: 1 applic Nystatin (Mycostatin) 5 ml PO QID [facility] Last Admin: 07/14/16 08:40 Dose: 5 ml Potassium Chloride (Klor-Con M20) 20 meq PO DAILY [facility] Stop: 07/19/16 11:31 Last Admin: 07/14/16 08:40 Dose: 20 meq Pregabalin (Lyrica) 50 mg PO TID [facility] Last Admin: 07/14/16 08:40 Dose: Not Given Sodium Chloride (Saline Flush) 10 ml FLUSH ASDIRECTED PRN PRN Reason: Keep Vein Open Discontinued Medications Azithromycin (Zithromax) 500 mg PO ONETIME ONE Stop: 07/10/16 07:37 Last Admin: 07/10/16 08:21 Dose: 500 mg Furosemide (Lasix) 40 mg PO ONETIME ONE Stop: 07/06/16 16:53 Last Admin: 07/06/16 17:48 Dose: 40 mg Furosemide (Lasix) 40 mg PO BIDDIURETIC [facility] Last Admin: 07/10/16 14:26 Dose: 40 mg Furosemide (Lasix) Confirm Administered Dose 40 mg .ROUTE .STK-MED ONE Stop: 07/07/16 10:55 Last Admin: 07/07/16 10:56 Dose: Not Given Furosemide (Lasix) 40 mg PO BID@0800,1400 [facility] Last Admin: 07/13/16 08:04 Dose: 40 mg Azithromycin 500 mg/ Sodium (Chloride) 250 mls @ 250 mls/hr IV Q24H [facility] Last Admin: 07/07/16 20:24 Dose: 250 mls/hr Ceftriaxone Sodium 1 gm/ (Sodium Chloride) 50 mls @ 100 mls/hr IV Q24H [facility] Last Admin: 07/07/16 17:57 Dose: 100 mls/hr Ceftriaxone Sodium 1 gm/ (Sodium Chloride) 100 mls @ 200 mls/hr IV Q24H [facility] Last Admin: 07/09/16 10:04 Dose: 200 mls/hr Azithromycin 500 mg/ Sodium (Chloride) 250 mls @ 250 mls/hr IV Q24H [facility] Last Admin: 07/09/16 11:01 Dose: 250 mls/hr Piperacillin Sod/Tazobactam (Sod 4.5 gm/ Sodium Chloride) 100 mls @ 200 mls/hr IV Q6H [facility] Last Admin: 07/12/16 05:20 Dose: 200 mls/hr Piperacillin Sod/Tazobactam (Sod 4.5 gm/ Sodium Chloride) 100 mls @ 200 mls/hr IV Q8H [facility] Last Admin: 07/13/16 06:10 Dose: 200 mls/hr Piperacillin Sod/Tazobactam (Sod 3.375 gm/ Sodium Chloride) 100 mls @ 200 mls/ hr IV Q8H [facility] Last Admin: 07/13/16 15:08 Dose: Not Given Lactobacillus Acidophilus (Acidolphilus Extra Strength) 1 tab PO DAILY ONE Stop: 07/11/16 11:16 Last Admin: 07/11/16 12:36 Dose: 1 tab Levofloxacin (Levaquin) 750 mg PO Q24H [facility] Last Admin: 07/10/16 10:16 Dose: 750 mg Levofloxacin (Levaquin) 750 mg PO Q48H [facility] Last Admin: 07/12/16 07:58 Dose: 750 mg Prednisone (Prednisone) 60 mg PO WITHBREAKFAST DAYANARA Stop: 07/11/16 07:01 Last Admin: 07/11/16 08:00 Dose: 60 mg Prednisone (Prednisone) 60 mg PO ONETIME ONE Stop: 07/06/16 22:29 Last Admin: 07/06/16 22:54 Dose: 60 mg Sodium Chloride (Saline Flush) 10 ml FLUSH BID PRN PRN Reason: to keep vein open Last Admin: 07/08/16 06:17 Dose: 10 ml - Exam General: alert, oriented HEENT: Pupils equal, Pupils reactive, EOMI, Mucous membr. moist/pink Neck: supple Lungs: Clear to auscultation, Normal respiratory effort Cardiovascular: Regular Rate, Regular Rhythm, Murmurs (systolic murmur heard all over the chest wall , more so in the aortic area with radiation to carotids) - Problem List & Annotations (1) CHF (congestive heart failure) SNOMED Code(s): 49814611 Code(s): I50.9 - HEART FAILURE, UNSPECIFIED Status: Suspected Priority: High Current Visit: Yes Qualifiers: Congestive heart failure type: unspecified congestive heart failure type Congestive heart failure chronicity: acute on chronic Qualified Code(s): I50.9 - Heart failure, unspecified - Problem List Review Problem List Initiated/Reviewed/Updated: Yes - My Orders Last 24 Hours: My Active Orders 07/14/16 09:00 Isosorbide Mononitrate [Imdur] 30 mg PO DAILY 07/14/16 15:30 Metolazone [Zaroxolyn] 5 mg PO ONETIME ONE 07/14/16 16:00 Furosemide [Lasix] 20 mg PO DAILY@1600 07/14/16 Lunch Fluid Restriction [DIET] 07/15/16 07:30 Metolazone [Zaroxolyn] 5 mg PO DAILY@0730 - Assessment Assessment:: 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 also she has a significant cardiac murmur, she might have CHF or valvular heart disease. The only way we will know is with ECHO report, which is pending. Meanwhile, I have increased her lasix to 40mg in morning and 20mg in the evening. Also started her on zaroxyln 5mg 30 minutes before lasix. Started her on Long acting nitro,Imdur, for now to help with cardaic function. If ECHO confirms CHF, will need MARIO inhibitor started. Also her creat has temporarily gone up could be CHF related, have placed her on fluid restriction. Will recheck BMP in AM. Her white count went up on day 2 secondary to prednisone probably. She has now been on Iv antibiotics for 7 days, will stop antibiotics. Will repeat CBC and BMP in Am and followup.
[2016-07-14] MEDS ORDERED: Metolazone 5 MG Tab PO ONE (15:30)
[2016-07-14] MEDS: Furosemide 20 MG Tab PO SCH (18:21)
[2016-07-15] MEDS: Acetaminophen 650 MG Tab.ER PO PRN (00:42)
[2016-07-15] MEDS: Calcium Carbonate 500 MG Tab.Chew PO PRN ×3 (03:01→19:43)
[2016-07-15] MEDS: Metolazone 5 MG Tab PO SCH (07:08)
[2016-07-15] MEDS: Nystatin Susp 100,000 Unit/ML 5 ML UD Cup PO SCH ×4 (07:45→19:41)
[2016-07-15] MEDS: Isosorbide Mononitrate 30 MG Tab.ER PO SCH (07:46)
[2016-07-15] MEDS: Pregabalin 50 MG Cap PO SCH ×4 (07:46→19:41)
[2016-07-15] MEDS: Furosemide 40 MG Tab PO SCH (07:46)
[2016-07-15] MEDS: Potassium Chloride 20 MEQ Tab.ER PO SCH (07:46)
[2016-07-15] MEDS: Lactobacillus Acidophilus/Lactobacillus Sporogenes (Probiotic) Tab PO SCH (07:46)
[2016-07-15] MEDS: Nystatin Crm 30 GM Tube TOP SCH ×3 (07:47→19:50)
[2016-07-15] MEDS: Furosemide 20 MG Tab PO SCH (16:19)
--- NOTE | 2016-07-15 17:07 | PCM.PN ---
- General Info Date of Service: 07/15/16 Subjective Update: Pt claims she feel s tired and weak today. No fever or chills. tolerating oral diet well. Her creat is down to 0.81 today. Also she has diuresed about 3800cc over the past 24 hrs now. No cough or sputum. She does have some drop in the sats when she walks. She does get short of breath by the time she uses bathroom and back in her bed. She has been compalining on pain in the neck over the nape to pressure. no injury. - Review of Systems General: Reports: Weakness, Fatigue. Denies: Fever HEENT: Denies: glasses, sinus congestion, visual changes Pulmonary: Reports: shortness of breath. Denies: pleuritic chest pain, cough, sputum, hemoptysis, wheezing Cardiovascular: Reports: Palpitations, Dyspnea on Exertion. Denies: Chest Pain , Lightheadedness Gastrointestinal: Denies: Abdominal pain, Flatus, Nausea, Vomiting Genitourinary: Denies: dysuria, frequency Musculoskeletal: Reports: neck pain. Denies: shoulder pain, arm pain, joint pain, joint swelling Skin: Denies: pruritis, rash Neurological: Denies: Confusion, Dizziness - Patient Data Vitals - most recent: Last Vital Signs Temp 97.8 F 07/15/16 16:00 Pulse 96 07/15/16 16:00 Resp 24 H 07/15/16 16:00 BP 132/67 07/15/16 16:00 Pulse Ox 95 07/15/16 16:00 Weight - most recent: 99.155 kg I&O - last 24 hours: Intake & Output 07/15/16 07/15/16 07/15/16 06:59 14:59 22:59 Intake Total 350 Output Total 2250 Balance -1900 Lab Results last 24 hrs: Laboratory Results - last 24 hr 07/15/16 07/15/16 Range/Units 07:15 07:15 WBC 14.7 H (4.0-11.0) K/uL RBC 4.69 (3.80-5.80) M/uL Hgb 13.8 (11.5-16.5) g/dL Hct 41.2 (37.0-47.0) % MCV 88 (76-96) fL MCH 29.4 (27.0-32.0) pg MCHC 33.5 (31.0-35.0) g/dL RDW 14.9 (11.0-16.0) % Plt Count 310 (150-500) K/uL MPV 10.0 (6.0-10.0) fL Neut % (Auto) 72.0 H (45.0-70.0) % Lymph % (Auto) 13.8 L (20.0-40.0) % Mckean % (Auto) 9.5 (3.0-10.0) % Eos % (Auto) 4.4 (1.0-5.0) % Baso % (Auto) 0.3 (0.0-0.5) % Neut # (Auto) 10.55 H (2.00-7.50) K/uL Lymph # (Auto) 2.02 (1.50-4.00) K/uL Mckean # (Auto) 1.40 H (0.20-0.80) K/uL Eos # (Auto) 0.65 H (0.04-0.40) K/uL Baso # (Auto) 0.04 (0.02-0.10) K/uL Sodium 138 (136-145) mmol/L Potassium 3.4 L (3.5-5.1) mmol/L Chloride 100 (98-107) mmol/L Carbon Dioxide 34.2 H (21.0-32.0) mmol/L Anion Gap 7.2 (5.0-15.0) mmol/L BUN 19 D (8-26) mg/dL Creatinine 0.81 D (0.55-1.02) mg/dL Est Cr Clr Drug Dosing 40.16 mL/min Estimated GFR (MDRD) > 60 (>60) MLS/MIN BUN/Creatinine Ratio 23.5 (6-25) Glucose 106 H (74-100) mg/dL Calcium 9.0 (8.5-10.1) mg/dL Med Orders - Current: Current Medications Acetaminophen (Tylenol Arthritis Pain) 650 mg PO Q4HR PRN PRN Reason: Pain Last Admin: 07/15/16 00:42 Dose: 650 mg Calcium Carbonate/Glycine (Tums) 500 mg PO Q2HR PRN PRN Reason: Indigestion Last Admin: 07/15/16 11:16 Dose: 500 mg Cyclobenzaprine HCl (Flexeril) 10 mg PO TID PRN PRN Reason: pain Furosemide (Lasix) 40 mg PO QAM [facility] Last Admin: 07/15/16 07:46 Dose: 40 mg Furosemide (Lasix) 20 mg PO DAILY@1600 [facility] Last Admin: 07/15/16 16:19 Dose: 20 mg Isosorbide Mononitrate (Imdur) 30 mg PO DAILY [facility] Last Admin: 07/15/16 07:46 Dose: 30 mg Lactobacillus Acidophilus (Acidolphilus Extra Strength) 1 tab PO DAILY [facility] Last Admin: 07/15/16 07:46 Dose: 1 tab Metolazone (Zaroxolyn) 5 mg PO DAILY@0730 [facility] Last Admin: 07/15/16 07:08 Dose: 5 mg Metoprolol Tartrate (Lopressor) 25 mg PO Q12HR [facility] Nystatin (Nystatin Crm) 0 gm TOP TID [facility] Last Admin: 07/15/16 14:00 Dose: 1 applic Nystatin (Mycostatin) 5 ml PO QID [facility] Last Admin: 07/15/16 16:19 Dose: 5 ml Potassium Chloride (Klor-Con M20) 20 meq PO DAILY [facility] Stop: 07/19/16 11:31 Last Admin: 07/15/16 07:46 Dose: 20 meq Pregabalin (Lyrica) 50 mg PO TID [facility] Last Admin: 07/15/16 15:12 Dose: Not Given Sodium Chloride (Saline Flush) 10 ml FLUSH ASDIRECTED PRN PRN Reason: Keep Vein Open Discontinued Medications Azithromycin (Zithromax) 500 mg PO ONETIME ONE Stop: 07/10/16 07:37 Last Admin: 07/10/16 08:21 Dose: 500 mg Furosemide (Lasix) 40 mg PO ONETIME ONE Stop: 07/06/16 16:53 Last Admin: 07/06/16 17:48 Dose: 40 mg Furosemide (Lasix) 40 mg PO BIDDIURETIC [facility] Last Admin: 07/10/16 14:26 Dose: 40 mg Furosemide (Lasix) Confirm Administered Dose 40 mg .ROUTE .STK-MED ONE Stop: 07/07/16 10:55 Last Admin: 07/07/16 10:56 Dose: Not Given Furosemide (Lasix) 40 mg PO BID@0800,1400 [facility] Last Admin: 07/13/16 08:04 Dose: 40 mg Azithromycin 500 mg/ Sodium (Chloride) 250 mls @ 250 mls/hr IV Q24H [facility] Last Admin: 07/07/16 20:24 Dose: 250 mls/hr Ceftriaxone Sodium 1 gm/ (Sodium Chloride) 50 mls @ 100 mls/hr IV Q24H [facility] Last Admin: 07/07/16 17:57 Dose: 100 mls/hr Ceftriaxone Sodium 1 gm/ (Sodium Chloride) 100 mls @ 200 mls/hr IV Q24H [facility] Last Admin: 07/09/16 10:04 Dose: 200 mls/hr Azithromycin 500 mg/ Sodium (Chloride) 250 mls @ 250 mls/hr IV Q24H [facility] Last Admin: 07/09/16 11:01 Dose: 250 mls/hr Piperacillin Sod/Tazobactam (Sod 4.5 gm/ Sodium Chloride) 100 mls @ 200 mls/hr IV Q6H [facility] Last Admin: 07/12/16 05:20 Dose: 200 mls/hr Piperacillin Sod/Tazobactam (Sod 4.5 gm/ Sodium Chloride) 100 mls @ 200 mls/hr IV Q8H [facility] Last Admin: 07/13/16 06:10 Dose: 200 mls/hr Piperacillin Sod/Tazobactam (Sod 3.375 gm/ Sodium Chloride) 100 mls @ 200 mls/ hr IV Q8H [facility] Last Admin: 07/13/16 15:08 Dose: Not Given Piperacillin Sod/Tazobactam (Sod 3.375 gm/ Sodium Chloride) 100 mls @ 200 mls/ hr IV Q8H [facility] Last Admin: 07/14/16 06:44 Dose: 200 mls/hr Lactobacillus Acidophilus (Acidolphilus Extra Strength) 1 tab PO DAILY ONE Stop: 07/11/16 11:16 Last Admin: 07/11/16 12:36 Dose: 1 tab Levofloxacin (Levaquin) 750 mg PO Q24H [facility] Last Admin: 07/10/16 10:16 Dose: 750 mg Levofloxacin (Levaquin) 750 mg PO Q48H [facility] Last Admin: 07/12/16 07:58 Dose: 750 mg Metolazone (Zaroxolyn) 5 mg PO ONETIME ONE Stop: 07/14/16 15:31 Last Admin: 07/14/16 17:00 Dose: 5 mg Prednisone (Prednisone) 60 mg PO WITHBREAKFAST [facility] Stop: 07/11/16 07:01 Last Admin: 07/11/16 08:00 Dose: 60 mg Prednisone (Prednisone) 60 mg PO ONETIME ONE Stop: 07/06/16 22:29 Last Admin: 07/06/16 22:54 Dose: 60 mg Sodium Chloride (Saline Flush) 10 ml FLUSH BID PRN PRN Reason: to keep vein open Last Admin: 07/08/16 06:17 Dose: 10 ml - Exam General: alert, oriented HEENT: Pupils equal, Pupils reactive, EOMI, Mucous membr. moist/pink Neck: supple, other (tender over the upper trapezius and the base of the skull.) Lungs: Clear to auscultation, Normal respiratory effort Cardiovascular: Regular Rate, Regular Rhythm, Murmurs (esm in hte aortic area with radiation to carotids) Abdomen: bowel sounds present, soft, no tenderness, no distension Extremities: edema (2+) Peripheral Pulses: 2+: carotid (L), carotid (R), radial (L), radial (R) Skin: warm, dry, intact Neurological: no new focal deficit Psy/Mental Status: alert, normal affect, normal mood - Problem List & Annotations (1) CHF (congestive heart failure) SNOMED Code(s): 63041232 Code(s): I50.9 - HEART FAILURE, UNSPECIFIED Status: Suspected Priority: High Current Visit: Yes Qualifiers: Congestive heart failure type: unspecified congestive heart failure type Congestive heart failure chronicity: acute on chronic Qualified Code(s): I50.9 - Heart failure, unspecified (2) Aortic stenosis SNOMED Code(s): 52927751 Code(s): I35.0 - NONRHEUMATIC AORTIC (VALVE) STENOSIS Status: Acute Current Visit: Yes - Problem List Review Problem List Initiated/Reviewed/Updated: Yes - My Orders Last 24 Hours: My Active Orders 07/14/16 16:00 Furosemide [Lasix] 20 mg PO DAILY@1600 07/15/16 07:30 Metolazone [Zaroxolyn] 5 mg PO DAILY@0730 07/15/16 10:45 Cyclobenzaprine [Flexeril] 10 mg PO TID PRN 07/15/16 20:00 Metoprolol Tartrate [Lopressor] 25 mg PO Q12HR - Assessment Assessment:: Aortic stenois -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 also she has a significant cardiac murmur, she might have CHF or valvular heart disease. The only way we will know is with ECHO report, which is pending. Meanwhile, I have increased her lasix to 40mg in morning and 20mg in the evening. Also started her on zaroxyln 5mg 30 minutes before lasix. Started her on Long acting nitro,Imdur, for now to help with cardaic function. If ECHO confirms CHF, will need MARIO inhibitor started. Also her creat has temporarily gone up could be CHF related, have placed her on fluid restriction. Will recheck BMP in AM. Her white count went up on day 2 secondary to prednisone probably. She has now been on Iv antibiotics for 7 days, will stop antibiotics. Will repeat CBC and BMP in Am and followup. 07/15/16: Pt hs mild neck spasm form possible pillow straining the nape of the neck. Given flexeril 10mg one time dose. Intermittent heat to the neck. Her creat is down from 1.32 to 0.81. Also she has diuresed about 3800cc over past 24 hrs. Will continue fluid restriction to 1500cc/day Pt's ECHO does show significant aortic stenosis. At this point I have discussed with patient the findings of ECHo. Will continue lasix and Fluid restriction. I did discussed ECHo findings with Dr. Corral, Found[facility] Technician at [facility]. Her recommendation was to start her on metoprolol 25mg BID and help decrease heart rate and improve cardiac filing. Also taper of Imdur gradually. She would like to evaluate patient once her infection is controlled. She has been off antibiotics after 8 days of IV antibiotic therapy. will closely monitor over the weekend.
[2016-07-15] MEDS: Metoprolol Tartrate 25 MG Tab PO SCH (19:42)
[2016-07-15] MEDS: Cyclobenzaprine 10 MG Tab PO PRN (19:43)
[2016-07-16] MEDS: Acetaminophen 650 MG Tab.ER PO PRN ×3 (00:34→19:47)
[2016-07-16] MEDS: Metolazone 5 MG Tab PO SCH (07:12)
[2016-07-16] MEDS: Isosorbide Mononitrate 30 MG Tab.ER PO SCH (08:02)
[2016-07-16] MEDS: Furosemide 40 MG Tab PO SCH (08:02)
[2016-07-16] MEDS: Nystatin Susp 100,000 Unit/ML 5 ML UD Cup PO SCH ×4 (08:02→19:39)
[2016-07-16] MEDS: Pregabalin 50 MG Cap PO SCH ×3 (08:03→19:40)
[2016-07-16] MEDS: Potassium Chloride 20 MEQ Tab.ER PO SCH (08:03)
[2016-07-16] MEDS: Metoprolol Tartrate 25 MG Tab PO SCH ×2 (08:03→19:38)
[2016-07-16] MEDS: Lactobacillus Acidophilus/Lactobacillus Sporogenes (Probiotic) Tab PO SCH (08:03)
[2016-07-16] MEDS: Nystatin Crm 30 GM Tube TOP SCH ×3 (08:05→19:39)
[2016-07-16] MEDS: Cyclobenzaprine 10 MG Tab PO PRN (09:50)
[2016-07-16] MEDS: Calcium Carbonate 500 MG Tab.Chew PO PRN (10:23)
--- NOTE | 2016-07-16 11:25 | PCM.PN ---
- General Info Date of Service: 07/16/16 Subjective Update: Pt claims that her neck and upper back hurt today. She was given flexeril yesterday and she felt groggy. Not ambulating much other than with physiotherapist. She can use bathroom on her own. Tolerating diet. She has 2 of her sons here from [facility] with her. Has diuresed about 1800cc in the past 24 hrs. Functional Status: Reports: tolerating diet, ambulating, urinating - Review of Systems General: Reports: Weakness. Denies: Fever, Malaise HEENT: Denies: ear pain, headaches, sinus congestion, sore throat Pulmonary: Denies: shortness of breath, pleuritic chest pain, hemoptysis, wheezing Cardiovascular: Denies: Chest Pain, Palpitations, Lightheadedness Gastrointestinal: Denies: Nausea, Vomiting Genitourinary: Denies: dysuria, frequency Musculoskeletal: Reports: neck pain. Denies: joint pain, joint swelling Skin: Denies: pruritis, rash Neurological: Denies: Confusion, Dizziness, Syncope, Gait Disturbance Psychiatric: Denies: confusion, depression - Patient Data Vitals - most recent: Last Vital Signs Temp 99.1 F 07/16/16 00:10 Pulse 88 07/16/16 08:03 Resp 16 07/16/16 00:10 BP 132/81 07/16/16 08:03 Pulse Ox 93 L 07/16/16 00:10 Weight - most recent: 97.159 kg I&O - last 24 hours: Intake & Output 07/15/16 07/16/16 07/16/16 22:59 06:59 14:59 Intake Total 960 230 Output Total 1450 400 Balance -490 -170 Med Orders - Current: Current Medications Acetaminophen (Tylenol Arthritis Pain) 650 mg PO Q4HR PRN PRN Reason: Pain Last Admin: 07/16/16 00:34 Dose: 650 mg Calcium Carbonate/Glycine (Tums) 500 mg PO Q2HR PRN PRN Reason: Indigestion Last Admin: 07/16/16 10:23 Dose: 500 mg Cyclobenzaprine HCl (Flexeril) 10 mg PO TID PRN PRN Reason: pain Last Admin: 07/16/16 09:50 Dose: 10 mg [facility]) [facility] Last Admin: 07/16/16 08:02 Dose: 40 mg Furosemide (Lasix) 20 mg PO DAILY@1600 [facility] Last Admin: 07/15/16 16:19 Dose: 20 mg Lactobacillus Acidophilus (Acidolphilus Extra Strength) 1 tab PO DAILY [facility] Last Admin: 07/16/16 08:03 Dose: 1 tab Metoprolol Tartrate (Lopressor) 25 mg PO Q12HR [facility] Last Admin: 07/16/16 08:03 Dose: 25 mg Nystatin (Nystatin Crm) 0 gm TOP TID [facility] Last Admin: 07/16/16 08:05 Dose: 1 applic Nystatin (Mycostatin) 5 ml PO QID [facility] Last Admin: 07/16/16 08:02 Dose: 5 ml Potassium Chloride (Klor-Con M20) 20 meq PO DAILY [facility] Stop: 07/19/16 11:31 Last Admin: 07/16/16 08:03 Dose: 20 meq Pregabalin (Lyrica) 50 mg PO TID [facility] Last Admin: 07/16/16 08:03 Dose: Not Given Sodium Chloride (Saline Flush) 10 ml FLUSH ASDIRECTED PRN PRN Reason: Keep Vein Open Discontinued Medications Azithromycin (Zithromax) 500 mg PO ONETIME ONE Stop: 07/10/16 07:37 Last Admin: 07/10/16 08:21 Dose: 500 mg Furosemide (Lasix) 40 mg PO ONETIME ONE Stop: 07/06/16 16:53 Last Admin: 07/06/16 17:48 Dose: 40 mg Furosemide (Lasix) 40 mg PO BIDDIURETIC [facility] Last Admin: 07/10/16 14:26 Dose: 40 mg Furosemide (Lasix) Confirm Administered Dose 40 mg .ROUTE .STK-MED ONE Stop: 07/07/16 10:55 Last Admin: 07/07/16 10:56 Dose: Not Given Furosemide (Lasix) 40 mg PO BID@0800,1400 [facility] Last Admin: 07/13/16 08:04 Dose: 40 mg Azithromycin 500 mg/ Sodium (Chloride) 250 mls @ 250 mls/hr IV Q24H [facility] Last Admin: 07/07/16 20:24 Dose: 250 mls/hr Ceftriaxone Sodium 1 gm/ (Sodium Chloride) 50 mls @ 100 mls/hr IV Q24H [facility] Last Admin: 07/07/16 17:57 Dose: 100 mls/hr Ceftriaxone Sodium 1 gm/ (Sodium Chloride) 100 mls @ 200 mls/hr IV Q24H [facility] Last Admin: 07/09/16 10:04 Dose: 200 mls/hr Azithromycin 500 mg/ Sodium (Chloride) 250 mls @ 250 mls/hr IV Q24H [facility] Last Admin: 07/09/16 11:01 Dose: 250 mls/hr Piperacillin Sod/Tazobactam (Sod 4.5 gm/ Sodium Chloride) 100 mls @ 200 mls/hr IV Q6H [facility] Last Admin: 07/12/16 05:20 Dose: 200 mls/hr Piperacillin Sod/Tazobactam (Sod 4.5 gm/ Sodium Chloride) 100 mls @ 200 mls/hr IV Q8H [facility] Last Admin: 07/13/16 06:10 Dose: 200 mls/hr Piperacillin Sod/Tazobactam (Sod 3.375 gm/ Sodium Chloride) 100 mls @ 200 mls/ hr IV Q8H [facility] Last Admin: 07/13/16 15:08 Dose: Not Given Piperacillin Sod/Tazobactam (Sod 3.375 gm/ Sodium Chloride) 100 mls @ 200 mls/ hr IV Q8H [facility] Last Admin: 07/14/16 06:44 Dose: 200 mls/hr Isosorbide Mononitrate (Imdur) 30 mg PO DAILY [facility] Last Admin: 07/16/16 08:02 Dose: 30 mg Lactobacillus Acidophilus (Acidolphilus Extra Strength) 1 tab PO DAILY ONE Stop: 07/11/16 11:16 Last Admin: 07/11/16 12:36 Dose: 1 tab Levofloxacin (Levaquin) 750 mg PO Q24H [facility] Last Admin: 07/10/16 10:16 Dose: 750 mg Levofloxacin (Levaquin) 750 mg PO Q48H [facility] Last Admin: 07/12/16 07:58 Dose: 750 mg Metolazone (Zaroxolyn) 5 mg PO ONETIME ONE Stop: 07/14/16 15:31 Last Admin: 07/14/16 17:00 Dose: 5 mg Metolazone (Zaroxolyn) 5 mg PO DAILY@0730 [facility] Last Admin: 07/16/16 07:12 Dose: 5 mg Prednisone (Prednisone) 60 mg PO WITHBREAKFAST [facility] Stop: 07/11/16 07:01 Last Admin: 07/11/16 08:00 Dose: 60 mg Prednisone (Prednisone) 60 mg PO ONETIME ONE Stop: 07/06/16 22:29 Last Admin: 07/06/16 22:54 Dose: 60 mg Sodium Chloride (Saline Flush) 10 ml FLUSH BID PRN PRN Reason: to keep vein open Last Admin: 07/08/16 06:17 Dose: 10 ml - Exam General: alert, oriented HEENT: Pupils equal, Pupils reactive, EOMI, Mucous membr. moist/pink Neck: supple, other (tender over the paraspinal muscle over the nape of the neck.) Lungs: Clear to auscultation, Normal respiratory effort Cardiovascular: Regular Rate, Regular Rhythm, Murmurs (grade 4/6 ESM in aortic area with radaition to carotids) Abdomen: bowel sounds present, soft, no tenderness, no distension Extremities: edema (2+ pitting type) Peripheral Pulses: 2+: carotid (L), carotid (R), radial (L), radial (R) Skin: warm, intact - Problem List & Annotations (1) CHF (congestive heart failure) SNOMED Code(s): 17835935 Code(s): I50.9 - HEART FAILURE, UNSPECIFIED Status: Suspected Priority: High Current Visit: Yes Qualifiers: Congestive heart failure type: unspecified congestive heart failure type Congestive heart failure chronicity: acute on chronic Qualified Code(s): I50.9 - Heart failure, unspecified (2) Aortic stenosis SNOMED Code(s): 91252015 Code(s): I35.0 - NONRHEUMATIC AORTIC (VALVE) STENOSIS Status: Acute Current Visit: Yes - Problem List Review Problem List Initiated/Reviewed/Updated: Yes - My Orders Last 24 Hours: My Active Orders 07/15/16 10:45 Cyclobenzaprine [Flexeril] 10 mg PO TID PRN 07/15/16 20:00 Metoprolol Tartrate [Lopressor] 25 mg PO Q12HR 07/17/16 08:00 BASIC METABOLIC PANEL,BMP [CHEM] Routine CBC WITH AUTO DIFF [HEME] Routine - Assessment Assessment:: Aortic stenois -valvular heart disease left lower lobe pneumonia - Plan Plan:: Pt has gained 2 lbs over 24 hrs. also she has a significant cardiac murmur, she might have CHF or valvular heart disease. The only way we will know is with ECHO report, which is pending. Meanwhile, I have increased her lasix to 40mg in morning and 20mg in the evening. Also started her on zaroxyln 5mg 30 minutes before lasix. Started her on Long acting nitro,Imdur, for now to help with cardaic function. If ECHO confirms CHF, will need MARIO inhibitor started. Also her creat has temporarily gone up could be CHF related, have placed her on fluid restriction. Will recheck BMP in AM. Her white count went up on day 2 secondary to prednisone probably. She has now been on Iv antibiotics for 7 days, will stop antibiotics. Will repeat CBC and BMP in Am and followup. 07/15/16: Pt hs mild neck spasm form possible pillow straining the nape of the neck. Given flexeril 10mg one time dose. Intermittent heat to the neck. Her creat is down from 1.32 to 0.81. Also she has diuresed about 3800cc over past 24 hrs. Will continue fluid restriction to 1500cc/day Pt's ECHO does show significant aortic stenosis. At this point I have discussed with patient the findings of ECHo. Will continue lasix and Fluid restriction. I did discussed ECHo findings with Dr. Corral, Sheeter Helper at [facility]. Her recommendation was to start her on metoprolol 25mg BID and help decrease heart rate and improve cardiac filing. Also taper of Imdur gradually. She would like to evaluate patient once her infection is controlled. She has been off antibiotics after 8 days of IV antibiotic therapy. will closely monitor over the weekend. 07/16/16 Pt cl;aims that flexeril made her groggy yesterday. hence flexeril is stopped.Advised intermittent heat to the neck 3-4 times daily. Also I have discontinue imdur and zaroxyln today as her creat is back to normal. Will continue lasix and fluid restriction. I have encouraged patient to walk, as she is always sitting in the chair and flexing her neck a lot, which might be the cause of her neck pain and her upper back pain. Will repeat CBC and BMP in am. If her white count is still elevated will get chest xray.
[2016-07-16] MEDS ORDERED: Aluminum Hydroxide/Magnesium Hydroxide/Simethicone Susp 30 ML Cup ONE (13:52)
[2016-07-16] MEDS: Furosemide 20 MG Tab PO SCH (16:22)
[2016-07-16] MEDS: Aluminum Hydroxide/Magnesium Hydroxide/Simethicone Susp 30 ML Cup PO PRN (21:47)
[2016-07-17] MEDS: Acetaminophen 650 MG Tab.ER PO PRN ×4 (00:44→22:06)
[2016-07-17] MEDS: Furosemide 40 MG Tab PO SCH (08:08)
[2016-07-17] MEDS: Potassium Chloride 20 MEQ Tab.ER PO SCH (08:08)
[2016-07-17] MEDS: Pregabalin 50 MG Cap PO SCH ×3 (08:08→19:52)
[2016-07-17] MEDS: Lactobacillus Acidophilus/Lactobacillus Sporogenes (Probiotic) Tab PO SCH (08:08)
[2016-07-17] MEDS: Nystatin Susp 100,000 Unit/ML 5 ML UD Cup PO SCH ×3 (08:08→15:58)
[2016-07-17] MEDS: Metoprolol Tartrate 25 MG Tab PO SCH ×2 (08:09→19:45)
[2016-07-17] MEDS: Nystatin Crm 30 GM Tube TOP SCH ×3 (08:10→20:03)
[2016-07-17] MEDS ORDERED: Potassium Chloride 10 MEQ Tab.ER PO SCH (11:15)
[2016-07-17] MEDS ORDERED: Potassium Chloride 10 MEQ Tab.ER ONE (11:21)
[2016-07-17] MEDS ORDERED: Potassium Chloride 10 MEQ Tab.ER PO ONE (11:50)
[2016-07-17] MEDS: Aluminum Hydroxide/Magnesium Hydroxide/Simethicone Susp 30 ML Cup PO PRN ×3 (13:07→22:09)
[2016-07-17] MEDS: Furosemide 20 MG Tab PO SCH (14:19)
--- NOTE | 2016-07-17 15:03 | PCM.PN ---
- General Info Date of Service: 07/17/16 Subjective Update: Pt tiffany she feels better today. She has gone for a small walk today. No cough. no fever. Gets weak and short of breath with walking. no fever or chills. Urinary output of 1800cc. Neck pain has improved with warm compresses. No complaints today. Functional Status: Reports: pain controlled, tolerating diet, ambulating, urinating - Review of Systems General: Reports: Weakness. Denies: Fever, Fatigue HEENT: Denies: sinus congestion, sore throat, visual changes Pulmonary: Reports: shortness of breath. Denies: cough, sputum Cardiovascular: Denies: Chest Pain, Lightheadedness Gastrointestinal: Denies: Abdominal pain, Nausea, Vomiting Genitourinary: Denies: dysuria, flank pain Musculoskeletal: Denies: joint pain, joint swelling Skin: Denies: pruritis, rash Neurological: Denies: Confusion, Headache, Numbness - Patient Data Vitals - most recent: Last Vital Signs Temp 98.6 F 07/17/16 12:00 Pulse 93 07/17/16 12:00 Resp 20 07/17/16 12:00 BP 131/56 L 07/17/16 12:00 Pulse Ox 93 L 07/17/16 12:00 Weight - most recent: 97.159 kg I&O - last 24 hours: Intake & Output 07/16/16 07/17/16 07/17/16 22:59 06:59 14:59 Intake Total 740 640 Output Total 1200 650 Balance -460 -10 Lab Results last 24 hrs: Laboratory Results - last 24 hr 07/17/16 07/17/16 Range/Units 08:00 08:00 WBC 11.9 H (4.0-11.0) K/uL RBC 5.03 (3.80-5.80) M/uL Hgb 14.7 (11.5-16.5) g/dL Hct 43.6 (37.0-47.0) % MCV 87 (76-96) fL MCH 29.2 (27.0-32.0) pg MCHC 33.7 (31.0-35.0) g/dL RDW 14.9 (11.0-16.0) % Plt Count 300 (150-500) K/uL MPV 9.4 (6.0-10.0) fL Neut % (Auto) 72.4 H (45.0-70.0) % Lymph % (Auto) 13.5 L (20.0-40.0) % Cocke % (Auto) 9.5 (3.0-10.0) % Eos % (Auto) 4.1 (1.0-5.0) % Baso % (Auto) 0.5 (0.0-0.5) % Neut # (Auto) 8.57 H (2.00-7.50) K/uL Lymph # (Auto) 1.60 (1.50-4.00) K/uL Cocke # (Auto) 1.13 H (0.20-0.80) K/uL Eos # (Auto) 0.49 H (0.04-0.40) K/uL Baso # (Auto) 0.06 (0.02-0.10) K/uL Sodium 138 (136-145) mmol/L Potassium 3.0 L (3.5-5.1) mmol/L Chloride 96 L (98-107) mmol/L Carbon Dioxide 39.9 H (21.0-32.0) mmol/L Anion Gap 5.1 (5.0-15.0) mmol/L BUN 23 D (8-26) mg/dL Creatinine 0.92 (0.55-1.02) mg/dL Est Cr Clr Drug Dosing 35.36 mL/min Estimated GFR (MDRD) 58 L (>60) MLS/MIN BUN/Creatinine Ratio 25.0 (6-25) Glucose 108 H (74-100) mg/dL Calcium 10.0 (8.5-10.1) mg/dL Med Orders - Current: Current Medications Acetaminophen (Tylenol Arthritis Pain) 650 mg PO Q4HR PRN PRN Reason: Pain Last Admin: 07/17/16 13:07 Dose: 650 mg Al Hydroxide/Mg Hydroxide (Mag-Al Plus) 30 ml PO Q4H PRN PRN Reason: Indigestion Last Admin: 07/17/16 13:07 Dose: 30 ml Calcium Carbonate/Glycine (Tums) 500 mg PO Q2HR PRN PRN Reason: Indigestion Last Admin: 07/16/16 10:23 Dose: 500 mg Cyclobenzaprine HCl (Flexeril) 10 mg PO TID PRN PRN Reason: pain Last Admin: 07/16/16 09:50 Dose: 10 mg Furosemide (Lasix) 20 mg PO BID@0800,1400 [facility] Last Admin: 07/17/16 14:19 Dose: 20 mg Lactobacillus Acidophilus (Acidolphilus Extra Strength) 1 tab PO DAILY [facility] Last Admin: 07/17/16 08:08 Dose: 1 tab Metoprolol Tartrate (Lopressor) 25 mg PO Q12HR [facility] Last Admin: 07/17/16 08:09 Dose: 25 mg Nystatin (Nystatin Crm) 0 gm TOP TID [facility] Last Admin: 07/17/16 14:20 Dose: 1 applic Nystatin (Mycostatin) 5 ml PO QID [facility] Last Admin: 07/17/16 11:31 Dose: 5 ml Potassium Chloride (Klor-Con M20) 20 meq PO DAILY [facility] Stop: 07/19/16 11:31 Last Admin: 07/17/16 08:08 Dose: 20 meq Pregabalin (Lyrica) 50 mg PO TID [facility] Last Admin: 07/17/16 14:20 Dose: Not Given Sodium Chloride (Saline Flush) 10 ml FLUSH ASDIRECTED PRN PRN Reason: Keep Vein Open Discontinued Medications Al Hydroxide/Mg Hydroxide (Mag-Al Plus) Confirm Administered Dose 30 ml .ROUTE .STK-MED ONE Stop: 07/16/16 13:53 Last Admin: 07/16/16 14:07 Dose: 30 ml Azithromycin (Zithromax) 500 mg PO ONETIME ONE Stop: 07/10/16 07:37 Last Admin: 07/10/16 08:21 Dose: 500 mg Furosemide (Lasix) 40 mg PO ONETIME ONE Stop: 07/06/16 16:53 Last Admin: 07/06/16 17:48 Dose: 40 mg Furosemide (Lasix) 40 mg PO BIDDIURETIC [facility] Last Admin: 07/10/16 14:26 Dose: 40 mg Furosemide (Lasix) Confirm Administered Dose 40 mg .ROUTE .STK-MED ONE Stop: 07/07/16 10:55 Last Admin: 07/07/16 10:56 Dose: Not Given Furosemide (Lasix) 40 mg PO BID@0800,1400 [facility] Last Admin: 07/13/16 08:04 Dose: 40 mg Furosemide (Lasix) 40 mg PO QAM [facility] Last Admin: 07/17/16 08:08 Dose: 40 mg Furosemide (Lasix) 20 mg PO DAILY@1600 [facility] Last Admin: 07/16/16 16:22 Dose: 20 mg Azithromycin 500 mg/ Sodium (Chloride) 250 mls @ 250 mls/hr IV Q24H [facility] Last Admin: 07/07/16 20:24 Dose: 250 mls/hr Ceftriaxone Sodium 1 gm/ (Sodium Chloride) 50 mls @ 100 mls/hr IV Q24H [facility] Last Admin: 07/07/16 17:57 Dose: 100 mls/hr Ceftriaxone Sodium 1 gm/ (Sodium Chloride) 100 mls @ 200 mls/hr IV Q24H [facility] Last Admin: 07/09/16 10:04 Dose: 200 mls/hr Azithromycin 500 mg/ Sodium (Chloride) 250 mls @ 250 mls/hr IV Q24H [facility] Last Admin: 07/09/16 11:01 Dose: 250 mls/hr Piperacillin Sod/Tazobactam (Sod 4.5 gm/ Sodium Chloride) 100 mls @ 200 mls/hr IV Q6H [facility] Last Admin: 07/12/16 05:20 Dose: 200 mls/hr Piperacillin Sod/Tazobactam (Sod 4.5 gm/ Sodium Chloride) 100 mls @ 200 mls/hr IV Q8H [facility] Last Admin: 07/13/16 06:10 Dose: 200 mls/hr Piperacillin Sod/Tazobactam (Sod 3.375 gm/ Sodium Chloride) 100 mls @ 200 mls/ hr IV Q8H [facility] Last Admin: 07/13/16 15:08 Dose: Not Given Piperacillin Sod/Tazobactam (Sod 3.375 gm/ Sodium Chloride) 100 mls @ 200 mls/ hr IV Q8H [facility] Last Admin: 07/14/16 06:44 Dose: 200 mls/hr Isosorbide Mononitrate (Imdur) 30 mg PO DAILY [facility] Last Admin: 07/16/16 08:02 Dose: 30 mg Lactobacillus Acidophilus (Acidolphilus Extra Strength) 1 tab PO DAILY ONE Stop: 07/11/16 11:16 Last Admin: 07/11/16 12:36 Dose: 1 tab Levofloxacin (Levaquin) 750 mg PO Q24H [facility] Last Admin: 07/10/16 10:16 Dose: 750 mg Levofloxacin (Levaquin) 750 mg PO Q48H [facility] Last Admin: 07/12/16 07:58 Dose: 750 mg Metolazone (Zaroxolyn) 5 mg PO ONETIME ONE Stop: 07/14/16 15:31 Last Admin: 07/14/16 17:00 Dose: 5 mg Metolazone (Zaroxolyn) 5 mg PO DAILY@0730 [facility] Last Admin: 07/16/16 07:12 Dose: 5 mg Potassium Chloride (Klor-Con 10) 10 meq PO DAILY [facility] Last Admin: 07/17/16 12:17 Dose: Not Given Potassium Chloride (Klor-Con 10) Confirm Administered Dose 10 meq .ROUTE .STK- MED ONE Stop: 07/17/16 11:22 Last Admin: 07/17/16 11:52 Dose: Not Given Potassium Chloride (Klor-Con 10) 10 meq PO ONETIME ONE Stop: 07/17/16 11:51 Last Admin: 07/17/16 12:00 Dose: 10 meq Prednisone (Prednisone) 60 mg PO WITHBREAKFAST [facility] Stop: 07/11/16 07:01 Last Admin: 07/11/16 08:00 Dose: 60 mg Prednisone (Prednisone) 60 mg PO ONETIME ONE Stop: 07/06/16 22:29 Last Admin: 07/06/16 22:54 Dose: 60 mg Sodium Chloride (Saline Flush) 10 ml FLUSH BID PRN PRN Reason: to keep vein open Last Admin: 07/08/16 06:17 Dose: 10 ml - Exam Quality Assessment: supplemental oxygen General: alert, oriented HEENT: Pupils equal, Pupils reactive, EOMI, Mucous membr. moist/pink Neck: supple Lungs: Clear to auscultation, Normal respiratory effort Cardiovascular: Regular Rate, Regular Rhythm, Murmurs (ESM in aortic area with radation to carotids) Extremities: edema (2+ pitting type) Peripheral Pulses: 2+: radial (L), radial (R) Skin: warm, intact Neurological: no new focal deficit - Problem List & Annotations (1) CHF (congestive heart failure) SNOMED Code(s): 83300713 Code(s): I50.9 - HEART FAILURE, UNSPECIFIED Status: Suspected Priority: High Current Visit: Yes Qualifiers: Congestive heart failure type: unspecified congestive heart failure type Congestive heart failure chronicity: acute on chronic Qualified Code(s): I50.9 - Heart failure, unspecified (2) Aortic stenosis SNOMED Code(s): 74730925 Code(s): I35.0 - NONRHEUMATIC AORTIC (VALVE) STENOSIS Status: Acute Current Visit: Yes (3) Hypokalemia SNOMED Code(s): 16444600 Code(s): E87.6 - HYPOKALEMIA Status: Acute Current Visit: Yes - Problem List Review Problem List Initiated/Reviewed/Updated: Yes - My Orders Last 24 Hours: My Active Orders 07/16/16 14:06 Alum Hydrox/Mag Hydrox/Simeth [Mag-Al Plus] 30 ml PO Q4H PRN 07/17/16 14:00 Furosemide [Lasix] 20 mg PO BID@0800,1400 07/17/16 Lunch Gluten Free Diet [DIET] 07/18/16 07:00 BASIC METABOLIC PANEL,BMP [CHEM] Routine CBC WITH AUTO DIFF [HEME] Routine - Assessment Assessment:: Aortic stenois -valvular heart disease left lower lobe pneumonia resolved Hypokalemia - Plan Plan:: Pt has gained 2 lbs over 24 hrs. also she has a significant cardiac murmur, she might have CHF or valvular heart disease. The only way we will know is with ECHO report, which is pending. Meanwhile, I have increased her lasix to 40mg in morning and 20mg in the evening. Also started her on zaroxyln 5mg 30 minutes before lasix. Started her on Long acting nitro,Imdur, for now to help with cardaic function. If ECHO confirms CHF, will need MARIO inhibitor started. Also her creat has temporarily gone up could be CHF related, have placed her on fluid restriction. Will recheck BMP in AM. Her white count went up on day 2 secondary to prednisone probably. She has now been on Iv antibiotics for 7 days, will stop antibiotics. Will repeat CBC and BMP in Am and followup. 07/15/16: Pt hs mild neck spasm form possible pillow straining the nape of the neck. Given flexeril 10mg one time dose. Intermittent heat to the neck. Her creat is down from 1.32 to 0.81. Also she has diuresed about 3800cc over past 24 hrs. Will continue fluid restriction to 1500cc/day Pt's ECHO does show significant aortic stenosis. At this point I have discussed with patient the findings of ECHo. Will continue lasix and Fluid restriction. I did discussed ECHo findings with Dr. Corral, [employer] Supervisor at [facility]. Her recommendation was to start her on metoprolol 25mg BID and help decrease heart rate and improve cardiac filing. Also taper of Imdur gradually. She would like to evaluate patient once her infection is controlled. She has been off antibiotics after 8 days of IV antibiotic therapy. will closely monitor over the weekend. 07/16/16 Pt cl;aims that flexeril made her groggy yesterday. hence flexeril is stopped.Advised intermittent heat to the neck 3-4 times daily. Also I have discontinue imdur and zaroxyln today as her creat is back to normal. Will continue lasix and fluid restriction. I have encouraged patient to walk, as she is always sitting in the chair and flexing her neck a lot, which might be the cause of her neck pain and her upper back pain. Will repeat CBC and BMP in am. If her white count is still elevated will get chest xray. 07/17/16 Pt claims she feels fine. She has had 1800 cc output. afebrile. No cough. She does desaturates into low 90s on room air , her lungs are clear to auscultation, I do feel this is because of patient habitus and sedentary habit. She might have basal atelectasis. Advised incentive spirometry.Her CBC done today shows white count down to 11.9. Her creat is 0.91 her potassium is down to 3. Low potassium is due to aggressive diuresis that was done due to her lower extremity edema. At this point I have decreased her lasix to 20mg BID. Also extra dose of Kdur 10meq given today. Will repeat BMP in Am. I will contact at [facility] in am regarding her appointment. PT and OT to evaluate. If patient is considered not safe to go home by PT or OT, will need to be swung tomorrow.
[2016-07-18] MEDS: Nystatin Susp 100,000 Unit/ML 5 ML UD Cup PO SCH ×3 (05:00→11:48)
[2016-07-18 07:56] VITALS: BP 120/62
[2016-07-18] MEDS: Lactobacillus Acidophilus/Lactobacillus Sporogenes (Probiotic) Tab PO SCH (07:56)
[2016-07-18] MEDS: Metoprolol Tartrate 25 MG Tab PO SCH (07:56)
[2016-07-18] MEDS: Furosemide 20 MG Tab PO SCH (07:56)
[2016-07-18] MEDS: Pregabalin 50 MG Cap PO SCH (07:56)
[2016-07-18] MEDS: Potassium Chloride 20 MEQ Tab.ER PO SCH (07:56)
[2016-07-18] MEDS: Nystatin Crm 30 GM Tube TOP SCH (07:58)
[2016-07-18] MEDS: Acetaminophen 650 MG Tab.ER PO PRN ×2 (08:12→11:52)
--- NOTE | 2016-07-18 09:38 | PCM.DCSUM1 ---
Discharge Summary - Discharge Data Discharge Date: 07/18/16 Discharge Disposition: DC/Tfer W/I Hosp To Swing 61 Condition: Good - Discharge Diagnosis/Problem(s) (1) CHF (congestive heart failure) SNOMED Code(s): 27408198 ICD Code: I50.9 - HEART FAILURE, UNSPECIFIED Status: Chronic Priority: High Qualifiers: Congestive heart failure type: diastolic Congestive heart failure chronicity: acute on chronic Qualified Code(s): I50.33 - Acute on chronic diastolic (congestive) heart failure (2) SOB (shortness of breath) on exertion SNOMED Code(s): 98349573 ICD Code: R06.02 - SHORTNESS OF BREATH Status: Chronic Priority: High (3) Edema extremities SNOMED Code(s): 493876077 ICD Code: R60.0 - LOCALIZED EDEMA Status: Chronic Priority: High (4) Pneumonia involving right lung SNOMED Code(s): 440234429 ICD Code: J18.9 - PNEUMONIA, UNSPECIFIED ORGANISM Status: Resolved Priority: High Qualifiers: Pneumonia type: due to unspecified organism Lung location: lower lobe of lung Qualified Code(s): J18.1 - Lobar pneumonia, unspecified organism - Patient Summary/Data Consults: Consultations 07/07/16 16:51 OT Evaluation and Treatment [CONS] Routine Please Evaluate and Treat. OT Reason for Consult: ADL's This query below is only for informational purposes and is not editable. Admission Diagnosis/Problem: CHF, Congestive heart failure PT Evaluation and Treatment [CONS] Routine Please Evaluate and Treat. PT Reason for Consult: Ambulation This query below is only for informational purposes and is not editable. Admission Diagnosis/Problem: CHF, Congestive heart failure - Discharge Plan Home Medications: Home Meds Acetaminophen [Tylenol Arthritis Pain] 650 mg PO Q4HR PRN #60 tab.er 07/18/16 [ Rx] Acidophilus/Lactobac Spor [Acidolphilus X-Strength] 1 tab PO DAILY tablet 07/18 [Rx] Alum Hydrox/Mag Hydrox/Simeth [Mag-Al Plus] 30 ml PO Q4H PRN #30 cup 07/18/16 [ Rx] Calcium Carbonate [Tums] 500 mg PO Q2HR PRN #0 tab.chew 07/18/16 [Rx] Cyclobenzaprine [Flexeril] 10 mg PO TID PRN #0 tablet 07/18/16 [Rx] Furosemide [Lasix] 20 mg PO BID@0800,1400 tablet 07/18/16 [Rx] Metoprolol Tartrate [Lopressor] 25 mg PO Q12HR tablet 07/18/16 [Rx] Nystatin [Mycostatin] 5 ml PO QID cup 07/18/16 [Rx] Nystatin [Nystatin Crm] 0 gm TOP TID tube 07/18/16 [Rx] Potassium Chloride [Klor-Con M20] 20 meq PO DAILY tab.er 07/18/16 [Rx] Pregabalin [Lyrica] 50 mg PO TID cap 07/18/16 [Rx] - Discharge Summary/Plan Comment DC Time >30 min.: Yes Discharge Summary/Plan Comment: Patient plan discussed with family and patient. We will discharge to swing bed today for PT/OT due to deconditioning and weakness. - Patient Data Vitals - Most Recent: Last Vital Signs Temp 36.9 C 07/18/16 08:00 Pulse 89 07/18/16 08:00 Resp 18 07/18/16 08:00 BP 120/62 07/18/16 08:00 Pulse Ox 94 L 07/18/16 08:00 Weight - Most Recent: 96.615 kg I&O - Last 24 hours: Intake & Output 07/17/16 07/18/16 07/18/16 22:59 06:59 14:59 Intake Total 780 600 Output Total 1050 650 Balance -270 -50 Lab Results - Last 24 hrs: Laboratory Results - last 24 hr 07/18/16 07/18/16 Range/Units 07:10 07:10 WBC 9.8 (4.0-11.0) K/uL RBC 4.88 (3.80-5.80) M/uL Hgb 14.3 (11.5-16.5) g/dL Hct 42.7 (37.0-47.0) % MCV 88 (76-96) fL MCH 29.3 (27.0-32.0) pg MCHC 33.5 (31.0-35.0) g/dL RDW 14.9 (11.0-16.0) % Plt Count 260 (150-500) K/uL MPV 10.1 H (6.0-10.0) fL Neut % (Auto) 64.1 (45.0-70.0) % Lymph % (Auto) 17.6 L (20.0-40.0) % Bureau % (Auto) 13.2 H (3.0-10.0) % Eos % (Auto) 4.5 (1.0-5.0) % Baso % (Auto) 0.6 H (0.0-0.5) % Neut # (Auto) 6.24 (2.00-7.50) K/uL Lymph # (Auto) 1.72 (1.50-4.00) K/uL Bureau # (Auto) 1.29 H (0.20-0.80) K/uL Eos # (Auto) 0.44 H (0.04-0.40) K/uL Baso # (Auto) 0.06 (0.02-0.10) K/uL Sodium 139 (136-145) mmol/L Potassium 2.8 L* (3.5-5.1) mmol/L Chloride 97 L (98-107) mmol/L Carbon Dioxide 37.5 H (21.0-32.0) mmol/L Anion Gap 7.3 (5.0-15.0) mmol/L BUN 26 (8-26) mg/dL Creatinine 0.92 (0.55-1.02) mg/dL Est Cr Clr Drug Dosing 35.36 mL/min Estimated GFR (MDRD) 58 L (>60) MLS/MIN BUN/Creatinine Ratio 28.3 H (6-25) Glucose 107 H (74-100) mg/dL Calcium 9.4 (8.5-10.1) mg/dL Med Orders - Current: Current Medications Acetaminophen (Tylenol Arthritis Pain) 650 mg PO Q4HR PRN PRN Reason: Pain Last Admin: 07/18/16 08:12 Dose: 650 mg Al Hydroxide/Mg Hydroxide (Mag-Al Plus) 30 ml PO Q4H PRN PRN Reason: Indigestion Last Admin: 07/17/16 22:09 Dose: 30 ml Calcium Carbonate/Glycine (Tums) 500 mg PO Q2HR PRN PRN Reason: Indigestion Last Admin: 07/16/16 10:23 Dose: 500 mg Cyclobenzaprine HCl (Flexeril) 10 mg PO TID PRN PRN Reason: pain Last Admin: 07/16/16 09:50 Dose: 10 mg Furosemide (Lasix) 20 mg PO BID@0800,1400 [facility] Last Admin: 07/18/16 07:56 Dose: 20 mg Lactobacillus Acidophilus (Acidolphilus Extra Strength) 1 tab PO DAILY [facility] Last Admin: 07/18/16 07:56 Dose: 1 tab Metoprolol Tartrate (Lopressor) 25 mg PO Q12HR [facility] Last Admin: 07/18/16 07:56 Dose: 25 mg Nystatin (Nystatin Crm) 0 gm TOP TID [facility] Last Admin: 07/18/16 07:58 Dose: 1 applic Nystatin (Mycostatin) 5 ml PO QID [facility] Last Admin: 07/18/16 07:57 Dose: 5 ml Potassium Chloride (Klor-Con M20) 20 meq PO DAILY [facility] Stop: 07/19/16 11:31 Last Admin: 07/18/16 07:56 Dose: 20 meq Pregabalin (Lyrica) 50 mg PO TID [facility] Last Admin: 07/18/16 07:56 Dose: Not Given Sodium Chloride (Saline Flush) 10 ml FLUSH ASDIRECTED PRN PRN Reason: Keep Vein Open Discontinued Medications Al Hydroxide/Mg Hydroxide (Mag-Al Plus) Confirm Administered Dose 30 ml .ROUTE .STK-MED ONE Stop: 07/16/16 13:53 Last Admin: 07/16/16 14:07 Dose: 30 ml Azithromycin (Zithromax) 500 mg PO ONETIME ONE Stop: 07/10/16 07:37 Last Admin: 07/10/16 08:21 Dose: 500 mg Furosemide (Lasix) 40 mg PO ONETIME ONE Stop: 07/06/16 16:53 Last Admin: 07/06/16 17:48 Dose: 40 mg Furosemide (Lasix) 40 mg PO BIDDIURETIC [facility] Last Admin: 07/10/16 14:26 Dose: 40 mg Furosemide (Lasix) Confirm Administered Dose 40 mg .ROUTE .STK-MED ONE Stop: 07/07/16 10:55 Last Admin: 07/07/16 10:56 Dose: Not Given Furosemide (Lasix) 40 mg PO BID@0800,1400 [facility] Last Admin: 07/13/16 08:04 Dose: 40 mg Furosemide (Lasix) 40 mg PO QAM [facility] Last Admin: 07/17/16 08:08 Dose: 40 mg Furosemide (Lasix) 20 mg PO DAILY@1600 [facility] Last Admin: 07/16/16 16:22 Dose: 20 mg Azithromycin 500 mg/ Sodium (Chloride) 250 mls @ 250 mls/hr IV Q24H [facility] Last Admin: 07/07/16 20:24 Dose: 250 mls/hr Ceftriaxone Sodium 1 gm/ (Sodium Chloride) 50 mls @ 100 mls/hr IV Q24H [facility] Last Admin: 07/07/16 17:57 Dose: 100 mls/hr Ceftriaxone Sodium 1 gm/ (Sodium Chloride) 100 mls @ 200 mls/hr IV Q24H [facility] Last Admin: 07/09/16 10:04 Dose: 200 mls/hr Azithromycin 500 mg/ Sodium (Chloride) 250 mls @ 250 mls/hr IV Q24H [facility] Last Admin: 07/09/16 11:01 Dose: 250 mls/hr Piperacillin Sod/Tazobactam (Sod 4.5 gm/ Sodium Chloride) 100 mls @ 200 mls/hr IV Q6H [facility] Last Admin: 07/12/16 05:20 Dose: 200 mls/hr Piperacillin Sod/Tazobactam (Sod 4.5 gm/ Sodium Chloride) 100 mls @ 200 mls/hr IV Q8H [facility] Last Admin: 07/13/16 06:10 Dose: 200 mls/hr Piperacillin Sod/Tazobactam (Sod 3.375 gm/ Sodium Chloride) 100 mls @ 200 mls/ hr IV Q8H [facility] Last Admin: 07/13/16 15:08 Dose: Not Given Piperacillin Sod/Tazobactam (Sod 3.375 gm/ Sodium Chloride) 100 mls @ 200 mls/ hr IV Q8H [facility] Last Admin: 07/14/16 06:44 Dose: 200 mls/hr Isosorbide Mononitrate (Imdur) 30 mg PO DAILY [facility] Last Admin: 07/16/16 08:02 Dose: 30 mg Lactobacillus Acidophilus (Acidolphilus Extra Strength) 1 tab PO DAILY ONE Stop: 07/11/16 11:16 Last Admin: 07/11/16 12:36 Dose: 1 tab Levofloxacin (Levaquin) 750 mg PO Q24H [facility] Last Admin: 07/10/16 10:16 Dose: 750 mg Levofloxacin (Levaquin) 750 mg PO Q48H [facility] Last Admin: 07/12/16 07:58 Dose: 750 mg Metolazone (Zaroxolyn) 5 mg PO ONETIME ONE Stop: 07/14/16 15:31 Last Admin: 07/14/16 17:00 Dose: 5 mg Metolazone (Zaroxolyn) 5 mg PO DAILY@0730 [facility] Last Admin: 07/16/16 07:12 Dose: 5 mg Potassium Chloride (Klor-Con 10) 10 meq PO DAILY [facility] Last Admin: 07/17/16 12:17 Dose: Not Given Potassium Chloride (Klor-Con 10) Confirm Administered Dose 10 meq .ROUTE .STK- MED ONE Stop: 07/17/16 11:22 Last Admin: 07/17/16 11:52 Dose: Not Given Potassium Chloride (Klor-Con 10) 10 meq PO ONETIME ONE Stop: 07/17/16 11:51 Last Admin: 07/17/16 12:00 Dose: 10 meq Prednisone (Prednisone) 60 mg PO WITHBREAKFAST [facility] Stop: 07/11/16 07:01 Last Admin: 07/11/16 08:00 Dose: 60 mg Prednisone (Prednisone) 60 mg PO ONETIME ONE Stop: 07/06/16 22:29 Last Admin: 07/06/16 22:54 Dose: 60 mg Sodium Chloride (Saline Flush) 10 ml FLUSH BID PRN PRN Reason: to keep vein open Last Admin: 07/08/16 06:17 Dose: 10 ml *Q Meaningful Use (DIS) - VTE *Q VTE Criteria *Q: - Stroke *Q Stroke Criteria *Q: - AMI *Q AMI Criteria *Q:
== END 2016-07-18 12:15 | disposition swing bed (61) | DRG 291 ==
LOC: LB.MS 16:38 → UNDOADMIN 16:38 → LB.MS 16:52 → UNDOADMIN 07-11 11:00 → LB.MS 07-11 11:00
PROVIDERS: ADMIT Family Medicine; ATTEND Family Medicine
DX: I50.23 Acute on chronic systolic (congestive) heart failure (principal); J18.1 Lobar pneumonia, unspecified organism; I35.0 Nonrheumatic aortic (valve) stenosis; M79.7 Fibromyalgia; R60.0 Localized edema; E87.6 Hypokalemia; M54.2 Cervicalgia; N28.9 Disorder of kidney and ureter, unspecified; M62.838 Other muscle spasm
CPT/HCPCS: 36415; 71250; 74176; 80048; 80053; 82306; 82550; 82607; 82746; 83036; 83735; 83880; 84443; 84550; 84630; 85025; 85651; 86038; 86140; 87040; 87086; 87493; 93306; 97110-GP; 97116-GP; 97161-GP; 97165-GO; 97530-GO; 97535-GO; A9270-GY; J0456; J0696; J2543; J7030; J7050

== ENCOUNTER 2016-07-15 09:22 | Inpatient (IN) | payer MEDICARE ==
[2016-07-18] MEDS ORDERED: Pneumococcal Polyvalent-23 Vaccine 0.5 ML SDV IM ONE (13:22)
[2016-07-18] MEDS ORDERED: Tuberculin, PPD 5 Units/0.1 ML 1 ML MDV IDERM ONE (13:29)
[2016-07-18] MEDS ORDERED: Furosemide 20 MG Tab ONE (14:41)
[2016-07-18] MEDS: Furosemide 40 MG Tab PO SCH (14:45)
--- NOTE | 2016-07-18 16:18 | PCM.HP ---
H&P History of Present Illness - General Date of Service: 07/18/16 Source of Information: Patient - History of Present Illness Initial Comments - Free Text/Narative: This is an 85yo F here for rehabilitation and management. She was newly diagnosed with CHF diastolic dysfunction/HFPEF when she presented with increasing b/l lower extremity swelling and sob on exertion that has been progressive over the past few years. Patient's Echo shows severe aortic stenosis. Patient's condition has improved greatly but she has difficulty with mobility and sob on movement. Her oxygen saturation does drop to the high 80's and low 90's with exertion despite on 2-3L of oxygen [place]. Location: Reports: generalized Severity: moderate Improves with: Reports: None Worsens with: Reports: None Associated Symptoms: Reports: shortness of breath, weakness Generalized Pain Score (Numeric/FACES): 3 - Related Data Allergies/Adverse Reactions: Allergies Allergy/AdvReac Type Severity Reaction Status Date / Time No Known Allergies Allergy Verified 07/18/16 13:28 Home Medications: Home Meds Acetaminophen [Tylenol Arthritis Pain] 650 mg PO Q4HR PRN #60 tab.er 07/18/16 [ Rx] Acidophilus/Lactobac Spor [Acidolphilus X-Strength] 1 tab PO DAILY tablet 07/18 [Rx] Alum Hydrox/Mag Hydrox/Simeth [Mag-Al Plus] 30 ml PO Q4H PRN #30 cup 07/18/16 [ Rx] Calcium Carbonate [Tums] 500 mg PO Q2HR PRN #0 tab.chew 07/18/16 [Rx] Cyclobenzaprine [Flexeril] 10 mg PO TID PRN #0 tablet 07/18/16 [Rx] Furosemide [Lasix] 20 mg PO BID@0800,1400 tablet 07/18/16 [Rx] Metoprolol Tartrate [Lopressor] 25 mg PO Q12HR tablet 07/18/16 [Rx] Nystatin [Mycostatin] 5 ml PO QID cup 07/18/16 [Rx] Nystatin [Nystatin Crm] 0 gm TOP TID tube 07/18/16 [Rx] Potassium Chloride [Klor-Con M20] 20 meq PO DAILY tab.er 07/18/16 [Rx] Pregabalin [Lyrica] 50 mg PO TID cap 07/18/16 [Rx] Past Medical History HEENT History: Reports: Cataract, Impaired vision, Macular degeneration Cardiovascular History: Reports: Heart Failure, Heart murmur, Other (see below) Other Cardiovascular History: mitral valve prolapse Respiratory History: Reports: SOB Other Respiratory History: presently due to recent weight gain Gastrointestinal History: Reports: GERD Other Gastrointestinal History: occassional mixes water and baking soda together for an antacid Genitourinary History: Reports: Urinary incontinence Other Genitourinary History: states she is incontinent when she eats oatmeal [employer] History: Reports: Musculoskeletal History: Reports: Other (see below) Other Musculoskeletal History: uses walker for stability Dermatologic History: Reports: Other (see below) Other Dermatologic History: several moles on pts back that are dry and cracked - Infectious Disease History Infectious Disease History: Reports: Hepatitis A - Past Surgical History HEENT Surgical History: Reports: Adenoidectomy, Cataract surgery, Tonsillectomy , Other (see below) Other HEENT Surgeries/Procedures: intraocular lens in both eyes GI Surgical History: Reports: Appendectomy Social & Family History - Family History Cardiac: Reports: Other (see below) Other Cardiac Family History: mother had a mitral valve prolapse, GI: Reports: Other (see below) Other GI Family History: mother had 2/3 ofstomach removed - Tobacco Use Smoking Status *Q: Never Smoker Second Hand Smoke Exposure: No - Caffeine Use Caffeine Use: Reports: Coffee - Recreational Drug Use Recreational Drug Use: No H&P Review of Systems - Review of Systems: Review Of Systems: ROS reveals no pertinent complaints other than HPI. Exam - Exam Exam: See Below - Vital Signs Weight: 96.615 kg - Exam Quality Assessment: supplemental oxygen General: alert, oriented, cooperative HEENT: PERRLA, Conjunctiva clear, EACs clear Neck: supple, trachea midline Lungs: Clear to auscultation, Normal respiratory effort Cardiovascular: regular rate, regular rhythm, systolic murmur Abdomen: normal bowel sounds, soft Back Exam: normal inspection Extremities: edema Peripheral Pulses: 1+: dorsalis pedis (L), dorsalis pedis (R) Skin: warm, dry, intact Neurological: cranial nerves intact, reflexes equal bilateral Neuro Extensive - Mental Status: alert, oriented x3, normal mood/affect Neuro Extensive - Motor, Sensory, Reflexes: CN II-XII intact *Q Meaningful Use (ADM) - VTE *Q VTE Criteria *Q: - Stroke *Q Stroke Criteria *Q: - AMI *Q AMI Criteria *Q: - Problem List (1) Aortic stenosis SNOMED Code(s): 94299821 ICD Code: I35.0 - NONRHEUMATIC AORTIC (VALVE) STENOSIS Status: Chronic Priority: High Current Visit: Yes Qualifiers: Cardiac valve disease etiology: nonrheumatic Qualified Code(s): I35.0 - Nonrheumatic aortic (valve) stenosis (2) CHF (congestive heart failure) SNOMED Code(s): 59191886 ICD Code: I50.9 - HEART FAILURE, UNSPECIFIED Status: Chronic Priority: High Current Visit: Yes Qualifiers: Congestive heart failure type: diastolic Congestive heart failure chronicity: acute on chronic Qualified Code(s): I50.33 - Acute on chronic diastolic (congestive) heart failure (3) Hypokalemia SNOMED Code(s): 74434365 ICD Code: E87.6 - HYPOKALEMIA Status: Acute Priority: High Current Visit: Yes (4) Edema extremities SNOMED Code(s): 361800060 ICD Code: R60.0 - LOCALIZED EDEMA Status: Chronic Priority: High Current Visit: Yes (5) SOB (shortness of breath) on exertion SNOMED Code(s): 49341383 ICD Code: R06.02 - SHORTNESS OF BREATH Status: Chronic Priority: High Current Visit: Yes (6) Pneumonia involving right lung SNOMED Code(s): 864251801 ICD Code: J18.9 - PNEUMONIA, UNSPECIFIED ORGANISM Status: Resolved Priority: High Current Visit: No Qualifiers: Pneumonia type: due to unspecified organism Lung location: lower lobe of lung Qualified Code(s): J18.1 - Lobar pneumonia, unspecified organism Problem List Initiated/Reviewed/Updated: Yes Assessment/Plan Comment:: Patient will be admitted to swing bed for further PT/OT management. We will monitor her oxygen saturation and dyspnea. Cardiology to be consulted and referral to be made pending call back from Dr. Corral.
[2016-07-18] MEDS ORDERED: Aluminum Hydroxide/Magnesium Hydroxide/Simethicone Susp 30 ML Cup PO PRN (16:20)
[2016-07-18] MEDS ORDERED: Sodium Chloride 0.9% 10 ML Syringe FLUSH PRN (16:20)
[2016-07-18] MEDS: Omeprazole 40 MG Cap.CR PO SCH (19:40)
[2016-07-18] MEDS: Potassium Chloride 10 MEQ Tab.ER PO SCH (19:41)
[2016-07-18] MEDS: Metoprolol Tartrate 25 MG Tab PO SCH (19:42)
[2016-07-18] MEDS: Nystatin Crm 30 GM Tube TOP SCH (20:00)
[2016-07-18] MEDS: Acetaminophen 650 MG Tab.ER PO PRN (21:10)
[2016-07-19] MEDS: Potassium Chloride 10 MEQ Tab.ER PO SCH ×2 (07:26→20:19)
[2016-07-19] MEDS: Furosemide 40 MG Tab PO SCH ×2 (07:26→16:04)
[2016-07-19] MEDS: Lactobacillus Acidophilus/Lactobacillus Sporogenes (Probiotic) Tab PO SCH (07:26)
[2016-07-19] MEDS: Metoprolol Tartrate 25 MG Tab PO SCH ×2 (07:27→20:48)
[2016-07-19] MEDS: Nystatin Crm 30 GM Tube TOP SCH ×3 (07:28→20:57)
[2016-07-19] MEDS: Metolazone 5 MG Tab PO SCH ×2 (08:23→16:03)
[2016-07-19] MEDS: Acetaminophen 650 MG Tab.ER PO PRN ×2 (10:00→21:41)
[2016-07-19] MEDS: Nystatin Susp 100,000 Unit/ML 5 ML UD Cup PO SCH ×3 (14:23→20:19)
[2016-07-19] MEDS: Omeprazole 40 MG Cap.CR PO SCH (20:19)
[2016-07-19] MEDS: [UNRECOGNIZED DRUG - OTHER] PO SCH (20:49)
[2016-07-20] MEDS: GINKGO PO PRN (06:50)
[2016-07-20] MEDS: Acetaminophen 650 MG Tab.ER PO PRN ×2 (06:58→23:38)
[2016-07-20] MEDS: Furosemide 40 MG Tab PO SCH ×2 (07:35→17:36)
[2016-07-20] MEDS: Metolazone 5 MG Tab PO SCH ×2 (07:35→17:37)
[2016-07-20] MEDS: Potassium Chloride 10 MEQ Tab.ER PO SCH (07:35)
[2016-07-20] MEDS: Nystatin Susp 100,000 Unit/ML 5 ML UD Cup PO SCH ×4 (07:35→19:37)
[2016-07-20] MEDS: Metoprolol Tartrate 25 MG Tab PO SCH ×2 (07:35→19:37)
[2016-07-20] MEDS: Lactobacillus Acidophilus/Lactobacillus Sporogenes (Probiotic) Tab PO SCH (07:35)
[2016-07-20] MEDS: Nystatin Crm 30 GM Tube TOP SCH ×3 (07:38→19:38)
[2016-07-20] MEDS ORDERED: Potassium Chloride 20 MEQ Tab.ER PO ONE (09:21)
[2016-07-20] MEDS: Omeprazole 40 MG Cap.CR PO SCH (19:37)
[2016-07-20] MEDS: Potassium Chloride 20 MEQ Tab.ER PO SCH (19:37)
[2016-07-20] MEDS: [UNRECOGNIZED DRUG - OTHER] PO SCH (19:40)
[2016-07-21] MEDS: Furosemide 40 MG Tab PO SCH ×2 (08:08→17:02)
[2016-07-21] MEDS: Potassium Chloride 20 MEQ Tab.ER PO SCH ×2 (08:08→19:39)
[2016-07-21] MEDS: Metolazone 5 MG Tab PO SCH ×2 (08:09→17:02)
[2016-07-21] MEDS: Lactobacillus Acidophilus/Lactobacillus Sporogenes (Probiotic) Tab PO SCH (08:09)
[2016-07-21] MEDS: Metoprolol Tartrate 25 MG Tab PO SCH ×2 (08:09→19:44)
[2016-07-21] MEDS: Nystatin Susp 100,000 Unit/ML 5 ML UD Cup PO SCH ×4 (08:10→20:41)
[2016-07-21] MEDS: Nystatin Crm 30 GM Tube TOP SCH ×3 (08:10→19:58)
--- NOTE | 2016-07-21 08:32 | PCM.SN ---
- Free Text/Narrative Note: Patient seen and evaluated yesterday. Patient has been doing well but does desaturate with exertion. We will continue PT/OT and discharge planning to the [facility]. Discussed f/u cardiology visit planning for after the so a family member can attend the appointment. Dr. Corral contacted Dr. Lyman yesterday late afternoon and discussed plan of care. Plan of care to setup appointment with Dr. Corral after discharge from swing/rehab. Will discuss this with patient and family present today.
[2016-07-21] MEDS: Calcium Carbonate 500 MG Tab.Chew PO PRN (18:48)
[2016-07-21] MEDS: Acetaminophen 650 MG Tab.ER PO PRN (19:37)
[2016-07-21] MEDS: Omeprazole 40 MG Cap.CR PO SCH (19:38)
[2016-07-21] MEDS: [UNRECOGNIZED DRUG - OTHER] PO SCH (19:38)
[2016-07-22] MEDS: GINKGO PO PRN ×2 (00:26→23:37)
[2016-07-22] MEDS: Acetaminophen 650 MG Tab.ER PO PRN ×4 (00:26→23:36)
[2016-07-22] MEDS: Metoprolol Tartrate 25 MG Tab PO SCH ×2 (07:34→20:00)
[2016-07-22] MEDS: Lactobacillus Acidophilus/Lactobacillus Sporogenes (Probiotic) Tab PO SCH (07:35)
[2016-07-22] MEDS: Potassium Chloride 20 MEQ Tab.ER PO SCH ×2 (07:35→20:00)
[2016-07-22] MEDS: Metolazone 5 MG Tab PO SCH ×2 (07:35→16:28)
[2016-07-22] MEDS: Nystatin Susp 100,000 Unit/ML 5 ML UD Cup PO SCH ×4 (07:36→20:00)
[2016-07-22] MEDS: Furosemide 40 MG Tab PO SCH ×2 (08:17→17:07)
[2016-07-22] MEDS: Nystatin Crm 30 GM Tube TOP SCH ×3 (08:18→20:00)
[2016-07-22] MEDS: Omeprazole 40 MG Cap.CR PO SCH (20:00)
[2016-07-22] MEDS: [UNRECOGNIZED DRUG - OTHER] PO SCH (20:00)
[2016-07-23] MEDS: Acetaminophen 650 MG Tab.ER PO PRN ×4 (04:13→20:32)
[2016-07-23] MEDS: Metolazone 5 MG Tab PO SCH ×2 (07:17→16:04)
[2016-07-23] MEDS: Nystatin Susp 100,000 Unit/ML 5 ML UD Cup PO SCH ×4 (07:39→19:58)
[2016-07-23] MEDS: Furosemide 40 MG Tab PO SCH ×2 (07:39→16:29)
[2016-07-23] MEDS: Metoprolol Tartrate 25 MG Tab PO SCH ×2 (07:40→19:57)
[2016-07-23] MEDS: Potassium Chloride 20 MEQ Tab.ER PO SCH ×2 (07:44→19:57)
[2016-07-23] MEDS: Lactobacillus Acidophilus/Lactobacillus Sporogenes (Probiotic) Tab PO SCH (07:44)
[2016-07-23] MEDS: Nystatin Crm 30 GM Tube TOP SCH ×4 (07:45→20:00)
[2016-07-23] MEDS: [UNRECOGNIZED DRUG - OTHER] PO SCH (19:56)
[2016-07-23] MEDS: Omeprazole 40 MG Cap.CR PO SCH (19:58)
[2016-07-24] MEDS: Acetaminophen 650 MG Tab.ER PO PRN (01:43)
[2016-07-24] MEDS: GINKGO PO PRN (02:50)
[2016-07-24] MEDS: Metolazone 5 MG Tab PO SCH ×2 (07:20→15:20)
[2016-07-24] MEDS: Furosemide 40 MG Tab PO SCH ×2 (08:14→16:45)
[2016-07-24] MEDS: Metoprolol Tartrate 25 MG Tab PO SCH ×2 (08:15→19:44)
[2016-07-24] MEDS: Nystatin Susp 100,000 Unit/ML 5 ML UD Cup PO SCH ×4 (08:15→19:43)
[2016-07-24] MEDS: Potassium Chloride 20 MEQ Tab.ER PO SCH ×2 (08:15→19:44)
[2016-07-24] MEDS: Lactobacillus Acidophilus/Lactobacillus Sporogenes (Probiotic) Tab PO SCH (08:16)
[2016-07-24] MEDS: Nystatin Crm 30 GM Tube TOP SCH ×3 (08:16→19:44)
[2016-07-24] MEDS: Omeprazole 40 MG Cap.CR PO SCH (19:44)
[2016-07-24] MEDS: [UNRECOGNIZED DRUG - OTHER] PO SCH (19:45)
[2016-07-25] MEDS: Metolazone 5 MG Tab PO SCH ×2 (07:25→15:31)
[2016-07-25] MEDS: Furosemide 40 MG Tab PO SCH ×2 (08:00→16:08)
[2016-07-25] MEDS: Nystatin Susp 100,000 Unit/ML 5 ML UD Cup PO SCH ×4 (08:00→20:23)
[2016-07-25] MEDS: Metoprolol Tartrate 25 MG Tab PO SCH ×2 (08:01→20:23)
[2016-07-25] MEDS: Potassium Chloride 20 MEQ Tab.ER PO SCH ×2 (08:01→20:23)
[2016-07-25] MEDS: Lactobacillus Acidophilus/Lactobacillus Sporogenes (Probiotic) Tab PO SCH (08:01)
[2016-07-25] MEDS: Nystatin Crm 30 GM Tube TOP SCH ×3 (08:50→20:24)
[2016-07-25] MEDS: diphenhydrAMINE 25 MG Cap PO PRN (11:00)
[2016-07-25] MEDS: Acetaminophen 650 MG Tab.ER PO PRN ×2 (18:13→23:29)
[2016-07-25] MEDS: [UNRECOGNIZED DRUG - OTHER] PO SCH ×2 (18:32→20:18)
[2016-07-25] MEDS: Omeprazole 40 MG Cap.CR PO SCH (20:24)
[2016-07-26] MEDS: Acetaminophen 650 MG Tab.ER PO PRN ×3 (04:58→23:40)
[2016-07-26] MEDS: Metolazone 5 MG Tab PO SCH ×3 (07:30→16:47)
[2016-07-26] MEDS: Nystatin Crm 30 GM Tube TOP SCH ×3 (08:00→20:21)
[2016-07-26] MEDS: Metoprolol Tartrate 25 MG Tab PO SCH ×2 (08:04→20:20)
[2016-07-26] MEDS: Furosemide 40 MG Tab PO SCH ×3 (08:05→17:20)
[2016-07-26] MEDS: Potassium Chloride 20 MEQ Tab.ER PO SCH ×4 (08:05→20:19)
[2016-07-26] MEDS: Lactobacillus Acidophilus/Lactobacillus Sporogenes (Probiotic) Tab PO SCH (08:05)
[2016-07-26] MEDS: Nystatin Susp 100,000 Unit/ML 5 ML UD Cup PO SCH ×4 (08:30→20:20)
--- NOTE | 2016-07-26 09:17 | PCM.PN ---
- General Info Date of Service: 07/26/16 Functional Status: Reports: pain controlled, tolerating diet - Review of Systems General: Reports: Weakness HEENT: Reports: no symptoms Pulmonary: Reports: no symptoms Cardiovascular: Reports: No Symptoms Gastrointestinal: Reports: No symptoms Genitourinary: Reports: no symptoms Musculoskeletal: Reports: no symptoms Skin: Reports: no symptoms Neurological: Reports: Weakness Psychiatric: Reports: no symptoms - Patient Data Vitals - most recent: Last Vital Signs Temp 37.1 C 07/26/16 08:00 Pulse 76 07/26/16 08:04 Resp 18 07/26/16 07:25 BP 126/72 07/26/16 08:04 Pulse Ox 93 L 07/26/16 07:25 Weight - most recent: 97.795 kg I&O - last 24 hours: Intake & Output 07/25/16 07/26/16 07/26/16 22:59 06:59 14:59 Intake Total 720 500 Balance 720 500 Lab Results last 24 hrs: Laboratory Results - last 24 hr 07/26/16 Range/Units 07:15 Potassium 3.0 L (3.5-5.1) mmol/L Med Orders - Current: Current Medications Acetaminophen (Tylenol Arthritis Pain) 650 mg PO Q4HR PRN PRN Reason: Pain Last Admin: 07/26/16 04:58 Dose: 650 mg Al Hydroxide/Mg Hydroxide (Mag-Al Plus) 30 ml PO Q8H PRN PRN Reason: Agitation Last Admin: 07/21/16 18:48 Dose: 30 ml Calcium Carbonate/Glycine (Tums) 1,000 mg PO Q2HR PRN PRN Reason: Indigestion Last Admin: 07/21/16 18:48 Dose: 1,000 mg Diphenhydramine HCl (Benadryl) 25 mg PO Q4H PRN PRN Reason: Rash Last Admin: 07/25/16 11:00 Dose: 25 mg Furosemide (Lasix) 20 mg PO BIDDIURETIC DAYANARA Last Admin: 07/26/16 08:05 Dose: 20 mg Lactobacillus Acidophilus (Acidolphilus Extra Strength) 1 tab PO DAILY [facility] Last Admin: 07/26/16 08:05 Dose: 1 tab Metolazone (Zaroxolyn) 5 mg PO BID@0730,1530 [facility] Last Admin: 05/01/17 15:31 Dose: 5 mg Metoprolol Tartrate (Lopressor) 25 mg PO Q12HR [facility] Last Admin: 07/26/16 08:04 Dose: 25 mg Ginkgo 1 each PO DAILY PRN PRN Reason: MUSCLE SPASMS Last Admin: 07/24/16 02:50 Dose: 1 each Calmagzinc Complex 4 each PO BEDTIME [facility] Last Admin: 07/25/16 20:18 Dose: Not Given Nystatin (Nystatin Crm) 0 gm TOP TID [facility] Last Admin: 07/25/16 20:24 Dose: Not Given Nystatin (Mycostatin) 5 ml PO QID [facility] Last Admin: 07/26/16 08:30 Dose: 5 ml Omeprazole (Omeprazole) 40 mg PO BEDTIME [facility] Last Admin: 07/25/16 20:24 Dose: 40 mg Potassium Chloride (Klor-Con M20) 40 meq PO BID [facility] Stop: 07/29/16 09:04 Sodium Chloride (Saline Flush) 10 ml FLUSH ASDIRECTED PRN PRN Reason: Keep Vein Open Discontinued Medications Furosemide (Lasix) Confirm Administered Dose 20 mg .ROUTE .STK-MED ONE Stop: 07/18/16 14:42 Last Admin: 07/18/16 17:01 Dose: Not Given Metolazone (Zaroxolyn) 5 mg PO BIDDIURETIC [facility] Last Admin: 07/24/16 07:20 Dose: 5 mg Pneumococcal Polyvalent Vaccine (Pneumovax 23) 0.5 ml IM .ONCE ONE Stop: 07/18/16 13:23 Last Admin: 07/19/16 16:59 Dose: 0.5 ml Potassium Chloride (Klor-Con 10) 10 meq PO BID [facility] Last Admin: 07/20/16 07:35 Dose: 10 meq Potassium Chloride (Klor-Con M20) 40 meq PO ONETIME ONE Stop: 07/20/16 09:22 Last Admin: 07/20/16 10:45 Dose: 40 meq Potassium Chloride (Klor-Con M20) 20 meq PO BID [facility] Last Admin: 07/26/16 08:05 Dose: 20 meq - Exam Quality Assessment: supplemental oxygen General: alert, oriented HEENT: Pupils equal Neck: supple Lungs: Clear to auscultation, Normal respiratory effort Cardiovascular: Regular Rate, Regular Rhythm Abdomen: bowel sounds present Extremities: edema (2+) Peripheral Pulses: 1+: dorsalis pedis (L), dorsalis pedis (R) Skin: warm, dry, intact Neurological: no new focal deficit Psy/Mental Status: alert, normal affect, normal mood - Problem List & Annotations (1) Aortic stenosis SNOMED Code(s): 93598286 Code(s): I35.0 - NONRHEUMATIC AORTIC (VALVE) STENOSIS Status: Chronic Priority: High Current Visit: Yes Qualifiers: Cardiac valve disease etiology: nonrheumatic Qualified Code(s): I35.0 - Nonrheumatic aortic (valve) stenosis (2) CHF (congestive heart failure) SNOMED Code(s): 41702232 Code(s): I50.9 - HEART FAILURE, UNSPECIFIED Status: Chronic Priority: High Current Visit: Yes Qualifiers: Congestive heart failure type: diastolic Congestive heart failure chronicity: acute on chronic Qualified Code(s): I50.33 - Acute on chronic diastolic (congestive) heart failure (3) Hypokalemia SNOMED Code(s): 03735872 Code(s): E87.6 - HYPOKALEMIA Status: Acute Priority: High Current Visit : Yes (4) Edema extremities SNOMED Code(s): 542423885 Code(s): R60.0 - LOCALIZED EDEMA Status: Chronic Priority: High Current Visit: Yes (5) SOB (shortness of breath) on exertion SNOMED Code(s): 64079791 Code(s): R06.02 - SHORTNESS OF BREATH Status: Chronic Priority: High Current Visit: Yes (6) Pneumonia involving right lung SNOMED Code(s): 077832790 Code(s): J18.9 - PNEUMONIA, UNSPECIFIED ORGANISM Status: Resolved Priority: High Current Visit: No Qualifiers: Pneumonia type: due to unspecified organism Lung location: lower lobe of lung Qualified Code(s): J18.1 - Lobar pneumonia, unspecified organism - Problem List Review Problem List Initiated/Reviewed/Updated: Yes - My Orders Last 24 Hours: My Active Orders 07/25/16 10:41 diphenhydrAMINE [Benadryl] 25 mg PO Q4H PRN 07/25/16 11:46 Code Status [Resuscitation Status] Routine 07/26/16 09:03 Potassium Chloride [Klor-Con M20] 40 meq PO BID 07/27/16 05:11 BASIC METABOLIC PANEL,BMP [CHEM] AM - Plan Plan:: Patient will be admitted to swing bed for further PT/OT management. We will monitor her oxygen saturation and dyspnea. Cardiology to be consulted and referral to be made pending call back from Dr. Corral. 07/26/16 Patient has been doing well and improving daily. Patient counseled on supportive care and continued PT/OT. Cardiology will be setup after discharged to outpatient.
[2016-07-26] MEDS: Omeprazole 40 MG Cap.CR PO SCH (20:20)
[2016-07-26] MEDS: [UNRECOGNIZED DRUG - OTHER] PO SCH (20:21)
[2016-07-27] MEDS: GINKGO PO PRN (01:54)
[2016-07-27] MEDS: Calcium Carbonate 500 MG Tab.Chew PO PRN (05:42)
[2016-07-27] MEDS: Acetaminophen 650 MG Tab.ER PO PRN ×2 (05:42→21:40)
[2016-07-27] MEDS: Metolazone 5 MG Tab PO SCH ×2 (07:15→16:19)
[2016-07-27] MEDS: Lactobacillus Acidophilus/Lactobacillus Sporogenes (Probiotic) Tab PO SCH (07:55)
[2016-07-27] MEDS: Potassium Chloride 20 MEQ Tab.ER PO SCH ×2 (07:56→19:21)
[2016-07-27] MEDS: Furosemide 40 MG Tab PO SCH ×2 (07:56→17:15)
[2016-07-27] MEDS: Metoprolol Tartrate 25 MG Tab PO SCH ×2 (07:57→20:19)
[2016-07-27] MEDS: Nystatin Susp 100,000 Unit/ML 5 ML UD Cup PO SCH ×4 (07:58→19:21)
[2016-07-27] MEDS: Nystatin Crm 30 GM Tube TOP SCH ×3 (07:59→21:40)
[2016-07-27] MEDS: [UNRECOGNIZED DRUG - OTHER] PO SCH (19:21)
[2016-07-27] MEDS: Omeprazole 40 MG Cap.CR PO SCH (19:22)
[2016-07-28] MEDS: Acetaminophen 650 MG Tab.ER PO PRN ×3 (01:20→19:12)
[2016-07-28] MEDS: Metolazone 5 MG Tab PO SCH ×2 (07:25→15:18)
[2016-07-28] MEDS: Lactobacillus Acidophilus/Lactobacillus Sporogenes (Probiotic) Tab PO SCH (08:13)
[2016-07-28] MEDS: Potassium Chloride 20 MEQ Tab.ER PO SCH ×2 (08:13→19:54)
[2016-07-28] MEDS: Furosemide 40 MG Tab PO SCH ×2 (08:14→16:02)
[2016-07-28] MEDS: Nystatin Crm 30 GM Tube TOP SCH ×3 (08:15→19:55)
[2016-07-28] MEDS: Nystatin Susp 100,000 Unit/ML 5 ML UD Cup PO SCH ×4 (08:15→19:55)
[2016-07-28] MEDS: Metoprolol Tartrate 25 MG Tab PO SCH ×2 (08:15→19:50)
[2016-07-28] MEDS: [UNRECOGNIZED DRUG - OTHER] PO SCH ×2 (15:17→19:55)
[2016-07-28] MEDS: Omeprazole 40 MG Cap.CR PO SCH (19:54)
[2016-07-29] MEDS: Acetaminophen 650 MG Tab.ER PO PRN ×3 (00:40→09:06)
[2016-07-29] MEDS: GINKGO PO PRN (00:40)
[2016-07-29] MEDS: Metolazone 5 MG Tab PO SCH ×2 (07:17→15:56)
[2016-07-29] MEDS: Furosemide 40 MG Tab PO SCH ×2 (08:21→15:56)
[2016-07-29] MEDS: Potassium Chloride 20 MEQ Tab.ER PO SCH ×2 (08:22→16:01)
[2016-07-29] MEDS: Lactobacillus Acidophilus/Lactobacillus Sporogenes (Probiotic) Tab PO SCH (08:22)
[2016-07-29] MEDS: Metoprolol Tartrate 25 MG Tab PO SCH ×2 (08:22→20:54)
[2016-07-29] MEDS: Nystatin Susp 100,000 Unit/ML 5 ML UD Cup PO SCH ×4 (08:22→20:55)
--- NOTE | 2016-07-29 10:54 | PCM.SN ---
- Free Text/Narrative Note: Examined b/l lower extremity and it has worsened slightly. We will adjust diuretics for a short time and re-evaluate leg edema in a few days. Patient denies any chest discomfort or increasing sob. She does feel the increase b/l leg discomfort due to the swelling. Patient states she is not drinking more fluids than normal. Denies any increased salt intake.
[2016-07-29] MEDS: Nystatin Crm 30 GM Tube TOP SCH ×3 (15:40→20:55)
[2016-07-29] MEDS ORDERED: Furosemide 20 MG Tab PO SCH (16:00)
[2016-07-29] MEDS: Pregabalin 50 MG Cap PO SCH (20:55)
[2016-07-29] MEDS: Omeprazole 40 MG Cap.CR PO SCH (20:55)
[2016-07-29] MEDS: [UNRECOGNIZED DRUG - OTHER] PO SCH (20:56)
[2016-07-30] MEDS: Metolazone 5 MG Tab PO SCH ×2 (07:45→15:31)
[2016-07-30] MEDS: Metoprolol Tartrate 25 MG Tab PO SCH ×2 (08:15→20:11)
[2016-07-30] MEDS: Lactobacillus Acidophilus/Lactobacillus Sporogenes (Probiotic) Tab PO SCH (08:15)
[2016-07-30] MEDS: Furosemide 40 MG Tab PO SCH ×2 (08:15→16:21)
[2016-07-30] MEDS: Nystatin Susp 100,000 Unit/ML 5 ML UD Cup PO SCH ×4 (08:16→20:10)
[2016-07-30] MEDS: Potassium Chloride 20 MEQ Tab.ER PO SCH ×2 (08:16→16:21)
[2016-07-30] MEDS: Nystatin Crm 30 GM Tube TOP SCH ×3 (08:17→20:41)
[2016-07-30] MEDS: Calcium Carbonate 500 MG Tab.Chew PO PRN (09:23)
[2016-07-30] MEDS: Pregabalin 50 MG Cap PO SCH (20:10)
[2016-07-30] MEDS: Omeprazole 40 MG Cap.CR PO SCH (20:11)
[2016-07-30] MEDS: [UNRECOGNIZED DRUG - OTHER] PO SCH (20:12)
[2016-07-31] MEDS: Metolazone 5 MG Tab PO SCH ×2 (07:50→15:24)
[2016-07-31] MEDS: Furosemide 40 MG Tab PO SCH ×2 (08:23→16:19)
[2016-07-31] MEDS: Metoprolol Tartrate 25 MG Tab PO SCH ×2 (08:23→19:38)
[2016-07-31] MEDS: Potassium Chloride 20 MEQ Tab.ER PO SCH ×2 (08:23→16:19)
[2016-07-31] MEDS: Nystatin Susp 100,000 Unit/ML 5 ML UD Cup PO SCH ×4 (08:23→20:14)
[2016-07-31] MEDS: Lactobacillus Acidophilus/Lactobacillus Sporogenes (Probiotic) Tab PO SCH (08:23)
[2016-07-31] MEDS: Nystatin Crm 30 GM Tube TOP SCH ×3 (08:24→19:52)
[2016-07-31] MEDS: Pregabalin 50 MG Cap PO SCH ×2 (17:39→20:15)
[2016-07-31] MEDS: Acetaminophen 650 MG Tab.ER PO PRN (19:44)
[2016-07-31] MEDS: Omeprazole 40 MG Cap.CR PO SCH (19:44)
[2016-07-31] MEDS: [UNRECOGNIZED DRUG - OTHER] PO SCH (19:52)
[2016-08-01] MEDS: Acetaminophen 650 MG Tab.ER PO PRN ×3 (04:48→23:54)
[2016-08-01] MEDS: Metolazone 5 MG Tab PO SCH ×2 (07:21→15:30)
[2016-08-01] MEDS: Lactobacillus Acidophilus/Lactobacillus Sporogenes (Probiotic) Tab PO SCH (07:54)
[2016-08-01] MEDS: Furosemide 40 MG Tab PO SCH ×2 (07:55→16:35)
[2016-08-01] MEDS: Potassium Chloride 20 MEQ Tab.ER PO SCH ×2 (07:55→16:35)
[2016-08-01] MEDS: Nystatin Crm 30 GM Tube TOP SCH ×3 (07:56→20:30)
[2016-08-01] MEDS: Metoprolol Tartrate 25 MG Tab PO SCH ×2 (07:56→20:31)
[2016-08-01] MEDS: Nystatin Susp 100,000 Unit/ML 5 ML UD Cup PO SCH ×4 (07:56→20:30)
[2016-08-01] MEDS: Pregabalin 50 MG Cap PO SCH ×2 (18:10→20:31)
[2016-08-01] MEDS: Omeprazole 40 MG Cap.CR PO SCH (20:30)
[2016-08-01] MEDS: [UNRECOGNIZED DRUG - OTHER] PO SCH (20:35)
[2016-08-02] MEDS: Acetaminophen 650 MG Tab.ER PO PRN ×2 (04:38→21:38)
[2016-08-02] MEDS: Furosemide 40 MG Tab PO SCH ×2 (08:07→16:41)
[2016-08-02] MEDS: Potassium Chloride 20 MEQ Tab.ER PO SCH ×2 (08:08→16:42)
[2016-08-02] MEDS: Lactobacillus Acidophilus/Lactobacillus Sporogenes (Probiotic) Tab PO SCH (08:08)
[2016-08-02] MEDS: Nystatin Susp 100,000 Unit/ML 5 ML UD Cup PO SCH ×4 (08:08→20:27)
[2016-08-02] MEDS: Metoprolol Tartrate 25 MG Tab PO SCH ×2 (08:08→20:26)
[2016-08-02] MEDS: Metolazone 5 MG Tab PO SCH ×2 (08:08→16:06)
[2016-08-02] MEDS: Nystatin Crm 30 GM Tube TOP SCH ×3 (08:11→20:28)
[2016-08-02] MEDS: Pregabalin 50 MG Cap PO SCH ×2 (18:23→20:26)
[2016-08-02] MEDS ORDERED: diphenhydrAMINE 50 MG Cap PO ONE (19:26)
[2016-08-02] MEDS: diphenhydrAMINE 25 MG Cap PO PRN (19:41)
[2016-08-02] MEDS ORDERED: Magnesium Oxide 400 MG Tab PO SCH (20:00)
[2016-08-02] MEDS: Omeprazole 40 MG Cap.CR PO SCH (20:27)
[2016-08-02] MEDS: Multivitamins with Iron/Calcium/Folic Acid/Minerals Tab PO SCH (20:27)
[2016-08-03] MEDS: Metolazone 5 MG Tab PO SCH ×2 (07:31→15:19)
[2016-08-03] MEDS: Lactobacillus Acidophilus/Lactobacillus Sporogenes (Probiotic) Tab PO SCH (08:22)
[2016-08-03] MEDS: Nystatin Susp 100,000 Unit/ML 5 ML UD Cup PO SCH ×4 (08:22→20:13)
[2016-08-03] MEDS: Furosemide 40 MG Tab PO SCH ×2 (08:22→16:10)
[2016-08-03] MEDS: Metoprolol Tartrate 25 MG Tab PO SCH ×2 (08:22→20:13)
[2016-08-03] MEDS: Potassium Chloride 20 MEQ Tab.ER PO SCH ×2 (08:23→17:20)
[2016-08-03] MEDS: Nystatin Crm 30 GM Tube TOP SCH ×2 (08:23→14:19)
[2016-08-03] MEDS: diphenhydrAMINE 25 MG Cap PO PRN (10:37)
[2016-08-03] MEDS: Pregabalin 50 MG Cap PO SCH ×2 (17:47→20:14)
[2016-08-03] MEDS: Multivitamins with Iron/Calcium/Folic Acid/Minerals Tab PO SCH (20:13)
[2016-08-03] MEDS: Omeprazole 40 MG Cap.CR PO SCH (20:13)
[2016-08-03] MEDS: Acetaminophen 650 MG Tab.ER PO PRN (20:15)
[2016-08-04] MEDS: Metoprolol Tartrate 25 MG Tab PO SCH (07:39)
[2016-08-04] MEDS: Potassium Chloride 20 MEQ Tab.ER PO SCH (07:39)
[2016-08-04] MEDS: Metolazone 5 MG Tab PO SCH (07:40)
[2016-08-04] MEDS: Nystatin Crm 30 GM Tube TOP SCH (07:41)
[2016-08-04] MEDS: Lactobacillus Acidophilus/Lactobacillus Sporogenes (Probiotic) Tab PO SCH (07:41)
[2016-08-04 07:42] VITALS: BP 127/66
[2016-08-04] MEDS ORDERED: Furosemide 40 MG Tab PO ONE (08:30)
[2016-08-04] MEDS: Acetaminophen 650 MG Tab.ER PO PRN (08:52)
--- NOTE | 2016-08-08 10:49 | PCM.DCSUM1 ---
Discharge Summary - Discharge Data Discharge Date: 08/04/16 Discharge Disposition: Home, W Home Health Agency 06 Condition: Good - Discharge Diagnosis/Problem(s) (1) Aortic stenosis SNOMED Code(s): 21171468 ICD Code: I35.0 - NONRHEUMATIC AORTIC (VALVE) STENOSIS Status: Chronic Priority: High Qualifiers: Cardiac valve disease etiology: nonrheumatic Qualified Code(s): I35.0 - Nonrheumatic aortic (valve) stenosis (2) CHF (congestive heart failure) SNOMED Code(s): 35639572 ICD Code: I50.9 - HEART FAILURE, UNSPECIFIED Status: Chronic Priority: High Qualifiers: Congestive heart failure type: diastolic Congestive heart failure chronicity: acute on chronic Qualified Code(s): I50.33 - Acute on chronic diastolic (congestive) heart failure (3) Hypokalemia SNOMED Code(s): 99524872 ICD Code: E87.6 - HYPOKALEMIA Status: Acute Priority: High (4) Edema extremities SNOMED Code(s): 902718865 ICD Code: R60.0 - LOCALIZED EDEMA Status: Chronic Priority: High (5) SOB (shortness of breath) on exertion SNOMED Code(s): 77103526 ICD Code: R06.02 - SHORTNESS OF BREATH Status: Chronic Priority: High (6) Pneumonia involving right lung SNOMED Code(s): 976710132 ICD Code: J18.9 - PNEUMONIA, UNSPECIFIED ORGANISM Status: Resolved Priority: High Qualifiers: Pneumonia type: due to unspecified organism Lung location: lower lobe of lung Qualified Code(s): J18.1 - Lobar pneumonia, unspecified organism (7) Weakness generalized SNOMED Code(s): 02904779 ICD Code: R53.1 - WEAKNESS Status: Chronic Priority: High - Patient Summary/Data Consults: Consultations 07/18/16 16:20 OT Evaluation and Treatment [CONS] Routine Please Evaluate and Treat. OT Reason for Consult: ADL's This query below is only for informational purposes and is not editable. PT Evaluation and Treatment [CONS] Routine Please Evaluate and Treat. PT Reason for Consult: Strengthening This query below is only for informational purposes and is not editable. - Patient Instructions Diet: Usual Diet as Tolerated Activity: As Tolerated Driving: Do Not Drive - Discharge Plan Prescriptions/Med Rec: Calcium Carbonate [Tums] 1,000 mg PO Q2HR PRN #60 tab.chew PRN Reason: Other Acetaminophen [Tylenol Arthritis Pain] 650 mg PO Q4HR PRN #60 tab.er PRN Reason: Pain Metoprolol Tartrate [Lopressor] 25 mg PO Q12HR #120 tablet Acidophilus/Lactobac Spor [Acidolphilus X-Strength] 1 tab PO DAILY #90 tablet Alum Hydrox/Mag Hydrox/Simeth [Mag-Al Plus] 30 ml PO Q8H PRN #60 cup PRN Reason: Constipation Furosemide [Lasix] 40 mg PO BIDDIURETIC #120 tablet Metolazone [Zaroxolyn] 5 mg PO BID@0730,1530 #120 tablet Non-Formulary Medication [NF Drug] 1 each PO DAILY PRN #120 each PRN Reason: Other Non-Formulary Medication [NF Drug] 4 each PO BEDTIME #90 each Nystatin [Nystatin Crm] 0 gm TOP TID #1 tube Omeprazole 40 mg PO BEDTIME #120 cap.cr Potassium Chloride [Klor-Con M20] 40 meq PO BIDMEALS #60 tab.er Pregabalin [Lyrica] 50 mg PO TID #180 cap Home Medications: Home Meds Acidophilus/Lactobac Spor [Acidolphilus X-Strength] 1 tab PO DAILY tablet 07/18 [Rx] Alum Hydrox/Mag Hydrox/Simeth [Mag-Al Plus] 30 ml PO Q4H PRN #30 cup 07/18/16 [ Rx] Cyclobenzaprine [Flexeril] 10 mg PO TID PRN #0 tablet 07/18/16 [Rx] Metoprolol Tartrate [Lopressor] 25 mg PO Q12HR tablet 07/18/16 [Rx] Pregabalin [Lyrica] 50 mg PO TID cap 07/18/16 [Rx] Acetaminophen [Tylenol Arthritis Pain] 650 mg PO Q4HR PRN #60 tab.er 08/03/16 [ Rx] Furosemide [Lasix] 40 mg PO BIDDIURETIC #120 tablet 08/03/16 [Rx] Metolazone [Zaroxolyn] 5 mg PO BID@0730,1530 #120 tablet 08/03/16 [Rx] Metoprolol Tartrate [Lopressor] 25 mg PO Q12HR #120 tablet 08/03/16 [Rx] Nystatin [Nystatin Crm] 0 gm TOP TID tube 08/03/16 [Rx] Omeprazole 40 mg PO BEDTIME #120 cap.cr 08/03/16 [Rx] Potassium Chloride [Klor-Con M20] 40 meq PO BIDMEALS #60 tab.er 08/03/16 [Rx] Acetaminophen [Tylenol Arthritis Pain] 650 mg PO Q4HR PRN #60 tab.er 08/04/16 [ Rx] Acidophilus/Lactobac Spor [Acidolphilus X-Strength] 1 tab PO DAILY #90 tablet [Rx] Alum Hydrox/Mag Hydrox/Simeth [Mag-Al Plus] 30 ml PO Q8H PRN #60 cup 08/04/16 [ Rx] Calcium Carbonate [Tums] 1,000 mg PO Q2HR PRN #60 tab.chew 08/04/16 [Rx] Non-Formulary Medication [NF Drug] 1 each PO DAILY PRN #120 each 08/04/16 [Rx] Non-Formulary Medication [NF Drug] 4 each PO BEDTIME #90 each 08/04/16 [Rx] Nystatin [Nystatin Crm] 0 gm TOP TID #1 tube 08/04/16 [Rx] Pregabalin [Lyrica] 50 mg PO TID #180 cap 08/04/16 [Rx] - Discharge Summary/Plan Comment DC Time >30 min.: Yes Discharge Summary/Plan Comment: Patient discharged to the [facility] assisted living. Patient counseled on f/u in clinic as directed. F/u PT/OT care and routine health check up. Patient agrees on f/u plan and care. - Patient Data Vitals - Most Recent: Last Vital Signs Temp 36.8 C 08/04/16 07:47 Pulse 82 08/04/16 07:47 Resp 20 08/04/16 07:47 BP 127/66 08/04/16 07:47 Pulse Ox 98 08/04/16 07:47 Weight - Most Recent: 98.52 kg Med Orders - Current: Current Medications Discontinued Medications Acetaminophen (Tylenol Arthritis Pain) 650 mg PO Q4HR PRN PRN Reason: Pain Last Admin: 08/04/16 08:52 Dose: 650 mg Al Hydroxide/Mg Hydroxide (Mag-Al Plus) 30 ml PO Q8H PRN PRN Reason: Agitation Last Admin: 07/21/16 18:48 Dose: 30 ml Calcium Carbonate/Glycine (Tums) 1,000 mg PO Q2HR PRN PRN Reason: Indigestion Last Admin: 07/30/16 09:23 Dose: 1,000 mg Diphenhydramine HCl (Benadryl) 25 mg PO Q4H PRN PRN Reason: Rash Last Admin: 08/03/16 10:37 Dose: 25 mg Diphenhydramine HCl (Benadryl) 50 mg PO ONETIME ONE Stop: 08/02/16 19:27 Last Admin: 08/02/16 20:24 Dose: Not Given Furosemide (Lasix) Confirm Administered Dose 20 mg .ROUTE .STK-MED ONE Stop: 07/18/16 14:42 Last Admin: 07/18/16 17:01 Dose: Not Given Furosemide (Lasix) 20 mg PO BIDDIURETIC DAYANARA Last Admin: 07/29/16 08:21 Dose: 20 mg Furosemide (Lasix) 20 mg PO BIDDIURETIC DAYANARA Furosemide (Lasix) 40 mg PO BIDDIURETIC DAYANARA Stop: 08/03/16 16:01 Last Admin: 08/03/16 16:10 Dose: 40 mg Furosemide (Lasix) 40 mg PO ONETIME ONE Stop: 08/04/16 08:31 Last Admin: 08/04/16 07:41 Dose: 40 mg Lactobacillus Acidophilus (Acidolphilus Extra Strength) 1 tab PO DAILY [facility] Last Admin: 08/04/16 07:41 Dose: 1 tab Metolazone (Zaroxolyn) 5 mg PO BIDDIURETIC DAYANARA Last Admin: 07/24/16 07:20 Dose: 5 mg Metolazone (Zaroxolyn) 5 mg PO BID@0730,1530 [facility] Last Admin: 08/04/16 07:40 Dose: 5 mg Metoprolol Tartrate (Lopressor) 25 mg PO Q12HR [facility] Last Admin: 08/04/16 07:39 Dose: 25 mg Multivitamins/Minerals (Thera M Plus) 1 tab PO BEDTIME [facility] Last Admin: 08/03/16 20:13 Dose: 1 tab Ginkgo 1 each PO DAILY PRN PRN Reason: MUSCLE SPASMS Last Admin: 07/29/16 00:40 Dose: 1 each Calmagzinc Complex 4 each PO BEDTIME [facility] Last Admin: 08/01/16 20:35 Dose: 4 each Nystatin (Nystatin Crm) 0 gm TOP TID [facility] Last Admin: 08/04/16 07:41 Dose: Not Given Nystatin (Mycostatin) 5 ml PO QID [facility] Last Admin: 08/03/16 20:13 Dose: 5 ml Omeprazole (Omeprazole) 40 mg PO BEDTIME [facility] Last Admin: 08/03/16 20:13 Dose: 40 mg Pneumococcal Polyvalent Vaccine (Pneumovax 23) 0.5 ml IM .ONCE ONE Stop: 07/18/16 13:23 Last Admin: 07/19/16 16:59 Dose: 0.5 ml Potassium Chloride (Klor-Con 10) 10 meq PO BID [facility] Last Admin: 07/20/16 07:35 Dose: 10 meq Potassium Chloride (Klor-Con M20) 40 meq PO ONETIME ONE Stop: 07/20/16 09:22 Last Admin: 07/20/16 10:45 Dose: 40 meq Potassium Chloride (Klor-Con M20) 20 meq PO BID [facility] Last Admin: 07/26/16 10:30 Dose: 20 meq Potassium Chloride (Klor-Con M20) 40 meq PO BID [facility] Stop: 07/29/16 09:04 Last Admin: 07/29/16 08:22 Dose: 40 meq Potassium Chloride (Klor-Con M20) 40 meq PO BIDMEALS [facility] Last Admin: 08/04/16 07:39 Dose: 40 meq Pregabalin (Lyrica) 50 mg PO BEDTIME [facility] Last Admin: 08/03/16 20:14 Dose: Not Given Sodium Chloride (Saline Flush) 10 ml FLUSH ASDIRECTED PRN PRN Reason: Keep Vein Open *Q Meaningful Use (DIS) - VTE *Q VTE Criteria *Q: - Stroke *Q Stroke Criteria *Q: - AMI *Q AMI Criteria *Q:
== END 2016-08-04 12:45 | disposition home health service (06) | DRG 947 ==
LOC: LB.MS 07-18 10:58 → UNDOADMIN 07-18 10:58 → LB.MS 07-18 16:20
PROVIDERS: ADMIT Family Medicine; ATTEND Family Medicine
DX: R53.1 Weakness (principal); I50.33 Acute on chronic diastolic (congestive) heart failure; J18.1 Lobar pneumonia, unspecified organism; I35.0 Nonrheumatic aortic (valve) stenosis; E87.6 Hypokalemia; R60.0 Localized edema; R06.02 Shortness of breath; Z23 Encounter for immunization
CPT/HCPCS: 36415; 80048; 84132; 85025; 86480; 90732; 97110-GP; 97116-GP; 97140-GP; 97530-GO; 97535-GO; A9270-GY; G0009